=== PATIENT | female | born 1930 | race Caucasian/White ===

== ENCOUNTER 2016-12-28 16:03 | Inpatient (IN) | payer OTHER ==
[~2016-12-28] VITALS: Ht 170.2 cm; Wt 93.8 kg
[~2016-12-28 16:03] MED LIST: ASPEC81 PO; CALCTAB5 PO; ENAL10TA88 PO; FRRS300 PO; MULT-506 BT; NTRGSL/4 UT; SIMV40TA2 PO; SYN112 PO; [UNRECOGNIZED DRUG - CODE] PO; [UNRECOGNIZED DRUG - CODE] PO
[2016-12-28] MEDS ORDERED: ACETAMINOPHEN 500 MG TAB PO STA (16:09)
[2016-12-28] MEDS ORDERED: SODIUM CHLORIDE 0.9% 1000ML 1,000 ML IV STA ×2 (16:09)
--- NOTE | 2016-12-28 16:33 | DIAGNOSTIC IMAGING REPORT ---
CHEST ONE VIEW PORTABLE CLINICAL HISTORY: Weakness COMPARISON STUDY: 11/18/2009 FINDINGS: The heart is at the upper limits of normal in size. There is no overt failure. There is no lobar consolidation. There are no pleural effusions. There are mild chronically increased right basilar markings.[ IMPRESSION: No active disease in the chest. Electronically signed by: Yobany Boyer M.D. 12/28/2016 4:32 PM Dictated Date/Time: 12/28/2016 4:31 PM
[2016-12-28] MEDS ORDERED: FERR325T5 PO (16:44)
[2016-12-28] MEDS ORDERED: LEVO150T PO (16:44)
[2016-12-28] MEDS ORDERED: CALCTAB5 PO (16:44)
[2016-12-28] MEDS ORDERED: GLUC1CAP35 PO (16:44)
[2016-12-28] MEDS ORDERED: COEN1CAP17 PO (16:44)
[2016-12-28] MEDS ORDERED: ASPI81TA21 PO (16:44)
[2016-12-28] MEDS ORDERED: CARV80CA PO (16:44)
[2016-12-28 16:58] LABS: BASO % 1.1 %; BASO ABS # 0.06 K/uL (0-0.2); COMPLETE YES; HEMATOCRIT 41.3 % (37-47); IG% 0.4 %; LYMPH % 5.3 %; LYMPH ABS # 0.29 K/uL (1.2-3.4); MEAN CELL VOLUME 91.2 fL (80-100); MEAN CORPUSCULAR HEMOGLOBIN 30.2 pg (25-34); MEAN CORPUSCULAR HGB CONC 33.2 g/dl (32-36); MEAN PLATELET VOLUME 10.2 fL (7.4-10.4); MONO % 4.9 %; NEUT % 88.3 %; PLATELET COUNT 154 K/uL (130-400); RED BLOOD COUNT 4.53 M/uL (4.2-5.4); WHITE BLOOD COUNT 5.49 K/uL (4.8-10.8)
[2016-12-28 17:12] LABS: INR 1.1 (0.9-1.1); PARTIAL THROMBOPLASTIN RATIO 1.2; PROTHROMBIN TIME (PATIENT) 11.9 SECONDS (9.0-12.0)
[2016-12-28 17:16] LABS: BUN/CREATININE RATIO 18.5 (10-20); CALCIUM 8.6 mg/dl (8.5-10.1); CREATININE 1.1 mg/dl (0.60-1.20); MAGNESIUM 1.8 mg/dl (1.8-2.4); POTASSIUM 3.7 mmol/L (3.5-5.1)
[2016-12-28 17:27] LABS: CKMB/CK RATIO 1.2 (0-3.0); THYROID STIMULATING HORMONE 0.209 uIu/ml (0.300-4.500)
[2016-12-28] MEDS ORDERED: MAGNESIUM SULFATE 1GM / D5W 1 GM in PREMIXED IN D5W 100 ML IV STA (17:52)
[2016-12-28] MEDS ORDERED: METOPROLOL TARTRATE 1 MG/ML VIAL IV STA (17:55)
[2016-12-28 17:56] LABS: URINE APPEARANCE CLEAR (CLEAR); URINE COLOR DK YELLOW; URINE NITRITE NEG (NEG); URINE PH 5.5 (4.5-7.5); URINE SPECIFIC GRAVITY 1.024 (1.000-1.030); UROBILINOGEN NEG (NEG)
[2016-12-28] MEDS ORDERED: MAGNESIUM SULFATE 1GM / D5W 1 GM BAG ONE (17:58)
[2016-12-28 18:00] LABS: MANUAL MICROSCOPIC REQUIRED? NO; REVIEW REQ? NO
[2016-12-28 18:01] LABS: URINE BILIRUBIN NEG (NEG)
[2016-12-28] MEDS ORDERED: POTASSIUM CHLORIDE 10 MEQ TABCR ONE (18:09)
[2016-12-28] MEDS ORDERED: POTASSIUM CHLORIDE 20 MEQ TABCR PO ONE (18:15)
[2016-12-28 18:20] VITALS: O2SAT 93; BMI 32.4
[2016-12-28] MEDS ORDERED: CEFTRIAXONE SOD INJ 1 GM ADDVIAL IV STA (18:31)
[2016-12-28] MEDS ORDERED: SODIUM CHLORIDE 0.9% 500ML 500 ML IV STA (18:32)
[2016-12-28] MEDS ORDERED: NITROGLYCERIN 0.4 MG SL PER TAB CHARGE UT SCH (19:00)
[2016-12-28] MEDS ORDERED: NITROGLYCERIN 0.4 MG SL PER TAB CHARGE SL PRN (19:00)
[2016-12-28] MEDS ORDERED: METOPROLOL TARTRATE 1 MG/ML VIAL IV. PRN (19:15)
[2016-12-28 19:16] VITALS: Ht 170.2 cm; Wt 93.8 kg
[2016-12-28] MEDS ORDERED: HEPARIN IV LOW DOSE NO BOLUS SCH (19:27)
--- NOTE | 2016-12-28 19:48 | EMERGENCY ROOM VISIT NOTE ---
History Report prepared by Elda: Kelin Gibbs Under the Supervision of: Dr. Josep Mehta M.D. First contact with patient: 16:09 Chief Complaint: FEVER Stated Complaint: VOMITING,DIARRHEA,FEVER,HIGH BP History of Present Illness The patient is an 86 year old female who presents to the Emergency Room with complaints of a persistent fever that began today. She currently rates her discomfort as a 5/10 in severity. The patient states that yesterday she was feeling fine, but states that during the night she vomited twice. She states that this morning she developed a fever, hypertension, and tachycardia. The patient denies taking any Tylenol for her symptoms. She states that she previously had urinary tract infections and pneumonia, but denies anything recently. The patient denies any recent sick contacts or recent travel. She additionally reports that last evening she had chest pain and states that this afternoon she felt nauseous. The patient states that last week she had a scratchy throat, but denies any currently. Pt denies LOC, headache, cough chills, diaphoresis, visual changes, neck pain, breathing difficulties, abdominal pain, back pain, melena, hematochezia, urinary symptoms, diarrhea, numbness, weakness, lymphadenopathy, rash, or other complaints. Source of History: patient Onset: today Position: other (global) Symptom Intensity: 5/10 Quality: other (fever) Timing: other (persistent) Associated Symptoms: + chest pain, + nausea, + vomiting Note: Associated Symptoms: hypertension, tachycardia Review of Systems See HPI for pertinent positives and negatives. A total of ten systems were reviewed and were otherwise negative. Past Medical & Surgical Medical Problems: (1) Atrial fibrillation (2) Atrial fibrillation with RVR (3) Hypertension (4) Myocardial infarction (5) UTI (urinary tract infection) Surgical Problems: (1) S/P appendectomy (2) S/P hip replacement (3) S/P knee replacement Family History Noncontributory secondary to age. Social History Smoking Status: Former Smoker Marital Status: Occupation Status: retired Current/Historical Medications Scheduled Aspirin Enteric Coated (Ecotrin Or Generic), 81 MG PO DAILY Calcium Carbonate (Caltrate 600), 1,500 MG PO DAILY Carvedilol Phosphate (Coreg Cr), 80 MG PO QAM Coenzyme Q10 (Ubidecarenone) (Co Q 10), 100 MG PO DAILY Enalapril (Vasotec), 20 MG PO DAILY Ferrous Sulfate (Ferrous Sulfate), 325 MG PO DAILY Uvfbylrdmvz-Loywqbymlng-Iox C- (Glucosamine Chondroitin), 1 CAP PO DAILY Levothyroxine Sodium (Synthroid), 150 MCG PO DAILY Multivitamin (Multivitamin), 1 TAB BT DAILY Nitroglycerin (Nitrostat), 0.4 MG UT PRN Simvastatin (Zocor), 40 MG PO DAILY Allergies Coded Allergies: Shellfish (Verified Allergy, Severe, ANAPHYLAXIS, 12/28/16) Uncoded Allergies: SEA SCALLOPS (Allergy, Unknown, ., 12/28/16) Physical Exam Vital Signs Date Time Temp Pulse Resp B/P (MAP) Pulse Ox O2 Delivery O2 Flow Rate FiO2 12/28/16 19:20 37.3 115 21 109/64 92 Room Air 12/28/16 18:20 93 Room Air 12/28/16 18:06 123 18 92/67 93 Room Air 12/28/16 18:03 125 23 92 12/28/16 18:03 135 108/59 12/28/16 18:02 135 16 108/59 92 Room Air 12/28/16 18:01 108/59 12/28/16 17:59 115 18 108/59 93 Room Air 12/28/16 17:59 105/59 12/28/16 17:58 109 22 12/28/16 17:56 135 16 12/28/16 17:53 108 28 12/28/16 17:48 108 15 12/28/16 17:43 129 28 12/28/16 17:38 108 30 12/28/16 17:33 113 22 12/28/16 17:28 123 32 12/28/16 17:23 127 25 12/28/16 17:18 116 37 12/28/16 17:16 115 12/28/16 17:13 136 37 12/28/16 17:08 125 33 12/28/16 17:03 142 34 12/28/16 16:58 119 29 12/28/16 16:57 130 12/28/16 16:20 94 Room Air 12/28/16 16:06 39.1 126 20 120/60 92 Room Air Physical Exam GENERAL: Awake, alert, mildly uncomfortable-appearing, in no distress HENT: Normocephalic, atraumatic. Dry mucous membranes. EYES: Normal conjunctiva. Sclera non-icteric. NECK: Supple. No nuchal rigidity. FROM. No JVD. RESPIRATORY: Clear to auscultation. CARDIAC: Tachycardic rate, normal rhythm. Extremities warm and well perfused. Pulses equal. ABDOMEN: Soft, non-distended. No tenderness to palpation. No rebound or guarding. No masses. RECTAL: Deferred. MUSCULOSKELETAL: Chest examination reveals no tenderness. The back is symmetrical on inspection without obvious abnormality. There is no CVA tenderness to palpation. No joint edema. LOWER EXTREMITIES: Calves are equal size bilaterally and non-tender. No edema. No discoloration. NEURO: Normal sensorium. No sensory or motor deficits noted. SKIN: No rash or jaundice noted. Medical Decision & Procedures ER Provider Diagnostic Interpretation: X-ray: Per my interpretation, radiologist review. CHEST ONE VIEW PORTABLE CLINICAL HISTORY: Weakness COMPARISON STUDY: 11/18/2009 FINDINGS: The heart is at the upper limits of normal in size. There is no overt failure. There is no lobar consolidation. There are no pleural effusions. There are mild chronically increased right basilar markings.[ IMPRESSION: No active disease in the chest. Electronically signed by: Yobany Boyer M.D. 12/28/2016 4:32 PM Dictated Date/Time: 12/28/2016 4:31 PM Laboratory Results 12/28/16 16:31 Red Blood Count 4.53, Mean Corpuscular Volume 91.2, Mean Corpuscular Hemoglobin 30.2, Mean Corpuscular Hemoglobin Concent 33.2, Mean Platelet Volume 10.2, Neutrophils (%) (Auto) 88.3, Lymphocytes (%) (Auto) 5.3, Monocytes (%) (Auto) 4.9, Eosinophils (%) (Auto) 0.0, Basophils (%) (Auto) 1.1, Neutrophils # (Auto) 4.85, Lymphocytes # (Auto) 0.29, Monocytes # (Auto) 0.27, Eosinophils # (Auto) 0.00, Basophils # (Auto) 0.06 12/28/16 16:31 Test 12/28/16 16:31 12/28/16 16:39 12/28/16 17:40 White Blood Count 5.49 K/uL (4.8-10.8) Red Blood Count 4.53 M/uL (4.2-5.4) Hemoglobin 13.7 g/dL (12.0-16.0) Hematocrit 41.3 % (37-47) Mean Corpuscular Volume 91.2 fL (80-100) Mean Corpuscular Hemoglobin 30.2 pg (25-34) Mean Corpuscular Hemoglobin Concent 33.2 g/dl (32-36) Platelet Count 154 K/uL (130-400) Mean Platelet Volume 10.2 fL (7.4-10.4) Neutrophils (%) (Auto) 88.3 % Lymphocytes (%) (Auto) 5.3 % Monocytes (%) (Auto) 4.9 % Eosinophils (%) (Auto) 0.0 % Basophils (%) (Auto) 1.1 % Neutrophils # (Auto) 4.85 K/uL (1.4-6.5) Lymphocytes # (Auto) 0.29 K/uL (1.2-3.4) Monocytes # (Auto) 0.27 K/uL (0.11-0.59) Eosinophils # (Auto) 0.00 K/uL (0-0.5) Basophils # (Auto) 0.06 K/uL (0-0.2) RDW Standard Deviation 48.0 fL (36.4-46.3) RDW Coefficient of Variation 14.3 % (11.5-14.5) Immature Granulocyte % (Auto) 0.4 % Immature Granulocyte # (Auto) 0.02 K/uL (0.00-0.02) Prothrombin Time 11.9 SECONDS (9.0-12.0) Prothromb Time International Ratio 1.1 (0.9-1.1) Activated Partial Thromboplast Time 30.3 SECONDS (21.0-31.0) Partial Thromboplastin Ratio 1.2 Anion Gap 7.0 mmol/L (3-11) Est Creatinine Clear Calc Drug Dose 43.2 ml/min Estimated GFR () 52.6 Estimated GFR (Non- 45.4 BUN/Creatinine Ratio 18.5 (10-20) Calcium Level 8.6 mg/dl (8.5-10.1) Magnesium Level 1.8 mg/dl (1.8-2.4) Total Bilirubin 0.8 mg/dl (0.2-1) Direct Bilirubin 0.2 mg/dl (0-0.2) Aspartate Amino Transf (AST/SGOT) 23 U/L (15-37) Alanine Aminotransferase (ALT/SGPT) 21 U/L (12-78) Alkaline Phosphatase 71 U/L (45-117) Total Creatine Kinase 86 U/L (26-192) Creatine Kinase MB 1.0 ng/ml (0.5-3.6) Creatine Kinase MB Ratio 1.2 (0-3.0) Troponin I 0.243 ng/ml (0-0.045) Total Protein 7.3 gm/dl (6.4-8.2) Albumin 3.5 gm/dl (3.4-5.0) Lipase 72 U/L (73-393) Thyroid Stimulating Hormone (TSH) 0.209 uIu/ml (0.300-4.500) Bedside Lactic Acid Venous 0.83 mmol/L (0.90-1.70) Urine Color DK YELLOW Urine Appearance CLEAR (CLEAR) Urine pH 5.5 (4.5-7.5) Urine Specific [place] 1.024 (1.000-1.030) Urine Protein 3+ (NEG) Urine Glucose (UA) NEG (NEG) Urine Ketones 1+ (NEG) Urine Occult Blood 3+ (NEG) Urine Nitrite NEG (NEG) Urine Bilirubin NEG (NEG) Urine Urobilinogen NEG (NEG) Urine Leukocyte Esterase TRACE (NEG) Urine WBC (Auto) 1-5 /hpf (0-5) Urine RBC (Auto) 10-30 /hpf (0-4) Urine Hyaline Casts (Auto) 5-10 /lpf (0-5) Urine Epithelial Cells (Auto) 10-20 /lpf (0-5) Urine Bacteria (Auto) NEG (NEG) Laboratory results reviewed by me Medications Administered Medications (Trade) Dose Ordered Sig/Durga Route Start Time Stop Time Status Last Admin Dose Admin Sodium Chloride 1,000 ml @ 999 mls/hr Q1H1M STAT IV 12/28/16 16:09 12/28/16 17:09 DC 12/28/16 16:48 999 MLS/HR Sodium Chloride 1,000 ml @ 125 mls/hr Q8H STAT IV 12/28/16 16:09 12/29/16 00:08 12/28/16 16:48 125 MLS/HR Acetaminophen (Tylenol Tab) 1,000 mg NOW STAT PO 12/28/16 16:09 12/28/16 16:11 DC 12/28/16 16:49 1,000 MG Potassium Chloride (Klor-Con Tab) 40 meq 1815 ONCE PO 12/28/16 18:15 12/28/16 18:16 DC 12/28/16 18:10 40 MEQ Metoprolol Tartrate (Lopressor Iv) 5 mg NOW STAT IV 12/28/16 17:55 12/28/16 17:56 DC 12/28/16 18:03 5 MG Magnesium Sulfate (Magnesium Sulfate) 1 gm STK-MED ONCE .ROUTE 12/28/16 17:58 12/28/16 17:59 DC 12/28/16 18:04 1 GM Ceftriaxone Sodium (Rocephin Inj) 1 gm NOW STAT IV 12/28/16 18:31 12/28/16 18:32 DC 12/28/16 19:18 1 GM Sodium Chloride 500 ml @ 999 mls/hr Q31M STAT IV 12/28/16 18:32 12/28/16 19:02 DC 12/28/16 19:19 999 MLS/HR ECG Indication: tachycardia Rate (beats per minute): 120 Rhythm: atrial fibrillation (with RVR) Findings: nonspecific-ST abn, PVC, ST depression (Lateral), other (LVH) Change: Repeat EKG showed atrial fibrillation with RVR, 121 beats per minute. Inferolateral ST depressions, slightly more prominent than others. ED Course 1609: Ordered Tylenol Tab 1000 mg PO, Sodium Chloride 1000 ml @ 125 mls/hr IV, Sodium Chloride 1000 ml @ 999 mls/hr IV. 1613: The patient was evaluated in room A3. A complete history and physical exam was performed. 1726: Per the monitor accounts clerk, the patient had a significant 3 second sinus pause. 1731: I reevaluated the patient and she is currently giving a cath urine. I discussed the exam findings thus far with her and her daughter and I discussed the treatment plan. They verbalized complete understanding and agreement. The patient will be evaluated for further treatment. 1752: Magnesium Sulfate 1 gm/Prmx 100 ml @ 100 mls/hr IV. 1755: Ordered Lopressor IV 5 mg IV. 1758: Ordered magnesium Sulfate 1 gm .route. 1830: I discussed the patients case with KEYA Akers. He is going to evaluate the patient for further treatment. 183: Ordered Rocephin Inj 1 gm IV, Sodium Chloride 500 ml @ 999 mls/hr IV. Medical Decision Triage Nursing notes reviewed. The patient's presentation and history were concerning for fever and vomiting. Etiologies such as viral syndrome, urinary tract infection, sepsis, pneumonia, bacteremia, cardiac sources, as well as others were entertained. The patient was evaluated. She was tachycardic and febrile. She was given Tylenol. Fluids were ordered. The patient had a chest x-ray performed which was negative. Blood work revealed a unremarkable CBC. The patient had a normal lactate. Her chemistry panel showed some mild dehydration. Potassium and magnesium were within normal limits. The patient had rapid A. fib noted on the ECG. She did have some ST segment depression. Troponin did return mildly elevated. The patient's urinalysis was concerning for infection. She was given Lopressor and IV Rocephin. Consultation was with internal medicine,Dr. Gutierrez Kimball. He evaluated the patient in the Emergency Room. He did order additional oral potassium and IV magnesium. The patient and daughter were updated. She was admitted for further treatment. Medication Reconcilliation Current Medication List: was personally reviewed by me Blood Pressure Screening Patient's blood pressure: Normal blood pressure Blood pressure disposition: Did not require urgent referral Consults Time Called: [phone] Consulting Physician: KEYA Akers Returned Call: [phone] I discussed the patients case with KEYA Akers. He is going to evaluate the patient for further treatment. Impression Primary Impression: Fever Additional Impressions: Elevated troponin UTI (urinary tract infection) Rapid atrial fibrillation Critical Care I have personally spent greater than 30 minutes of critical care time in the direct management of this patient. This includes bedside care, interpretation of diagnostic studies, and testing, discussion with consultants, patient, and family members, and other required patient management activities. This 30 minutes is in excess of all separately billable procedures. Scribe Attestation The scribe's documentation has been prepared under my direction and personally reviewed by me in its entirety. I confirm that the note above accurately reflects all work, treatment, procedures, and medical decision making performed by me. Departure Information Dispostion Being Evaluated By Hospitalist Luana Grider M.D. (PCP) Problem Qualifiers
--- NOTE | 2016-12-28 19:50 | History and Physical ---
History & Physical Date & Time of Service: Dec 28, 2016 at 19:37 Chief Complaint: Vomiting,Diarrhea,Fever,High Bp Primary Care Physician: Luana Acevedo M.D. History of Present Illness Source: patient, family The patient is a 86-year-old female who awoke approximately 1:00 this morning with chest discomfort, palpitations and nausea without vomiting. Her symptoms were also accompanied by shortness of breath as the day progressed. She reports having had a tickling sensation in her throat a few weeks ago which was unusual for her, but the symptoms went away without incident. She denies any lightheadedness, dizziness, loss of consciousness, focal weakness in arms or legs, numbness or tingling in arms or legs, blood in urine or stool, change in bowel or bladder habits. Past Medical/Surgical History Medical Problems: (1) Atrial fibrillation Status: Chronic (2) Hypertension Status: Chronic (3) Myocardial infarction Status: Resolved Surgical Problems: (1) S/P appendectomy Status: Resolved (2) S/P hip replacement Status: Resolved (3) S/P knee replacement Status: Resolved Family History Noncontributory Social History Smoking Status: Former Smoker Smokeless Tobacco Use: No Alcohol Use: none Drug Use: none Marital Status: Housing status: lives alone Occupational Status: retired Immunizations History of Influenza Vaccine: N/A Influenza Vaccine Date: Mar 26, 2009 History of Tetanus Vaccine?: NOT UP TO DATE. [birth year] Tetanus Immunization Date: May 26, 1986 History of Pneumococcal: Yes Pneumococcal Date: Mar 26, 2009 History of Hepatitis B Vaccine: No Multi-Drug Resistant Organisms History of MDRO: No Allergies Coded Allergies: Shellfish (Verified Allergy, Severe, ANAPHYLAXIS, 12/28/16) Uncoded Allergies: SEA SCALLOPS (Allergy, Unknown, ., 12/28/16) Home Medications Scheduled Aspirin Enteric Coated (Ecotrin Or Generic), 81 MG PO DAILY Calcium Carbonate (Caltrate 600), 1,500 MG PO DAILY Carvedilol Phosphate (Coreg Cr), 80 MG PO QAM Coenzyme Q10 (Ubidecarenone) (Co Q 10), 100 MG PO DAILY Enalapril (Vasotec), 20 MG PO DAILY Ferrous Sulfate (Ferrous Sulfate), 325 MG PO DAILY Cmzjzixputa-Kqsemcjimft-Zdu C- (Glucosamine Chondroitin), 1 CAP PO DAILY Levothyroxine Sodium (Synthroid), 150 MCG PO DAILY Multivitamin (Multivitamin), 1 TAB BT DAILY Nitroglycerin (Nitrostat), 0.4 MG UT PRN Simvastatin (Zocor), 40 MG PO DAILY Review of Systems The patient denies lower extremity swelling, vision change, hearing change, sore throat, fevers, chills, sweats, weight change, fatigue, vomiting, abdominal pain, pelvic pain, blood in urine or stool, dysuria, urinary frequency or urgency, lightheadedness, dizziness, headache, memory loss, rash, abnormal bruising or bleeding, imbalance, focal or generalized weakness, numbness or tingling in arms or legs, arthralgias or myalgias, back or neck pain , night sweats, or allergy symptoms. The review of systems is otherwise negative other than for that already noted above, and at least 10 systems have been reviewed. Physical Exam Vital Signs Date Time Temp Pulse Resp B/P (MAP) Pulse Ox O2 Delivery O2 Flow Rate FiO2 12/28/16 19:20 37.3 115 21 109/64 92 Room Air 12/28/16 18:20 93 Room Air 12/28/16 18:06 123 18 92/67 93 Room Air 12/28/16 18:03 125 23 92 12/28/16 18:03 135 108/59 12/28/16 18:02 135 16 108/59 92 Room Air 12/28/16 18:01 108/59 12/28/16 17:59 115 18 108/59 93 Room Air 12/28/16 17:59 105/59 12/28/16 17:58 109 22 12/28/16 17:56 135 16 12/28/16 17:53 108 28 12/28/16 17:48 108 15 12/28/16 17:43 129 28 12/28/16 17:38 108 30 12/28/16 17:33 113 22 12/28/16 17:28 123 32 12/28/16 17:23 127 25 12/28/16 17:18 116 37 12/28/16 17:16 115 12/28/16 17:13 136 37 12/28/16 17:08 125 33 12/28/16 17:03 142 34 12/28/16 16:58 119 29 12/28/16 16:57 130 12/28/16 16:20 94 Room Air 12/28/16 16:06 39.1 126 20 120/60 92 Room Air The patient is awake, well-developed and adequately nourished, alert and oriented 3, normocephalic and atraumatic, lying in bed and in no acute distress. HEENT--PERRL, EOMI, mucous membranes and oropharynx dry. Neck--supple, no JVD or bruits, thyroid normal, trachea midline, no adenopathy. Heart--irregularly irregular and tachycardic, no murmurs, rubs or gallops. Lungs--clear bilaterally but diminished throughout, no respiratory distress, no accessory muscle use. Abdomen--normal bowel sounds and soft, nontender and nondistended, no hernias or masses, no organomegaly. Extremities--no cyanosis, clubbing or edema. There are good distal pulses b/l. Dermatologic--normal skin turgor, normal color, warm and dry, no abnormal lymph nodes, no rash. Neurologic--cranial nerves II through XII grossly intact. Rheumatologic--normal range of motion. Psychiatric--normal affect. Diagnostics Laboratory Results Results Past 24 Hours Test 12/28/16 16:31 12/28/16 16:39 12/28/16 17:40 Range/Units White Blood Count 5.49 4.8-10.8 K/uL Red Blood Count 4.53 4.2-5.4 M/uL Hemoglobin 13.7 12.0-16.0 g/dL Hematocrit 41.3 37-47 % Mean Corpuscular Volume 91.2 80-100 fL Mean Corpuscular Hemoglobin 30.2 25-34 pg Mean Corpuscular Hemoglobin Concent 33.2 32-36 g/dl Platelet Count 154 130-400 K/uL Mean Platelet Volume 10.2 7.4-10.4 fL Neutrophils (%) (Auto) 88.3 % Lymphocytes (%) (Auto) 5.3 % Monocytes (%) (Auto) 4.9 % Eosinophils (%) (Auto) 0.0 % Basophils (%) (Auto) 1.1 % Neutrophils # (Auto) 4.85 1.4-6.5 K/uL Lymphocytes # (Auto) 0.29 1.2-3.4 K/uL Monocytes # (Auto) 0.27 0.11-0.59 K/uL Eosinophils # (Auto) 0.00 0-0.5 K/uL Basophils # (Auto) 0.06 0-0.2 K/uL RDW Standard Deviation 48.0 36.4-46.3 fL RDW Coefficient of Variation 14.3 11.5-14.5 % Immature Granulocyte % (Auto) 0.4 % Immature Granulocyte # (Auto) 0.02 0.00-0.02 K/uL Prothrombin Time 11.9 9.0-12.0 SECONDS Prothromb Time International Ratio 1.1 0.9-1.1 Activated Partial Thromboplast Time 30.3 21.0-31.0 SECONDS Partial Thromboplastin Ratio 1.2 Sodium Level 137 136-145 mmol/L Potassium Level 3.7 3.5-5.1 mmol/L Chloride Level 103 98-107 mmol/L Carbon Dioxide Level 27 21-32 mmol/L Anion Gap 7.0 3-11 mmol/L Blood Urea Nitrogen 20 7-18 mg/dl Creatinine 1.10 0.60-1.20 mg/dl Est Creatinine Clear Calc Drug Dose 43.2 ml/min Estimated GFR () 52.6 Estimated GFR (Non- 45.4 BUN/Creatinine Ratio 18.5 10-20 Random Glucose 115 70-99 mg/dl Calcium Level 8.6 8.5-10.1 mg/dl Magnesium Level 1.8 1.8-2.4 mg/dl Total Bilirubin 0.8 0.2-1 mg/dl Direct Bilirubin 0.2 0-0.2 mg/dl Aspartate Amino Transf (AST/SGOT) 23 15-37 U/L Alanine Aminotransferase (ALT/SGPT) 21 12-78 U/L Alkaline Phosphatase 71 45-117 U/L Total Creatine Kinase 86 26-192 U/L Creatine Kinase MB 1.0 0.5-3.6 ng/ml Creatine Kinase MB Ratio 1.2 0-3.0 Troponin I 0.243 0-0.045 ng/ml Total Protein 7.3 6.4-8.2 gm/dl Albumin 3.5 3.4-5.0 gm/dl Lipase 72 73-393 U/L Thyroid Stimulating Hormone (TSH) 0.209 0.300-4.500 uIu/ml Bedside Lactic Acid Venous 0.83 0.90-1.70 mmol/L Urine Color DK YELLOW Urine Appearance CLEAR CLEAR Urine pH 5.5 4.5-7.5 Urine Specific [place] 1.024 1.000-1.030 Urine Protein 3+ NEG Urine Glucose (UA) NEG NEG Urine Ketones 1+ NEG Urine Occult Blood 3+ NEG Urine Nitrite NEG NEG Urine Bilirubin NEG NEG Urine Urobilinogen NEG NEG Urine Leukocyte Esterase TRACE NEG Urine WBC (Auto) 1-5 0-5 /hpf Urine RBC (Auto) 10-30 0-4 /hpf Urine Hyaline Casts (Auto) 5-10 0-5 /lpf Urine Epithelial Cells (Auto) 10-20 0-5 /lpf Urine Bacteria (Auto) NEG NEG Microbiology Results 12/28/16 Blood Culture, Received Pending 12/28/16 Blood Culture, Received Pending 12/28/16 Urine Culture, Received Pending Diagnostic Radiology Patient Name: LILLIAM ACE Unit Number: [id number] Dictated: 12/28/161630 Transcribed: 12/28/161630 ARG Printed Date/Time: [~ rep prt dt]/[~ rep prt tm] [~ rep ct labl] - [~ rep ct ivnm] [facility] [place] [address] Dictated: 12/28/161630 Transcribed: 12/28/161630 ARG Printed Date/Time: [~ rep prt dt]/[~ rep prt tm] [~ rep ct labl] - [~ rep ct ivnm] [~ rep ct add3]] CHEST ONE VIEW PORTABLE CLINICAL HISTORY: Weakness COMPARISON STUDY: 11/18/2009 FINDINGS: The heart is at the upper limits of normal in size. There is no overt failure. There is no lobar consolidation. There are no pleural effusions. There are mild chronically increased right basilar markings.[ IMPRESSION: No active disease in the chest. Electronically signed by: Yobany Boyer M.D. 12/28/2016 4:32 PM Dictated Date/Time: 12/28/2016 4:31 PM The status of this report is Signed. Draft = Not yet reviewed or approved by Radiologist. Signed = Reviewed and approved by Radiologist. <AttendingPhy></AttendingPhy> <FamilyPhy>Kartik Castorena M.D.</FamilyPhy> < PrimaryPhy>Luana Acevedo M.D.</PrimaryPhy> <UnitNumber>[id number]</UnitNumber > <VisitNumber>[id number]</VisitNumber> <PatientName>LILLIAM ACE</ PatientName> <DateOfBirth>1930</DateOfBirth> <Location>[facility]</Location> < ServiceDate>12/28/16</ServiceDate> <MNE>ESINDI</MNE> <OrderingPhy>Josep Mehta MD</OrderingPhy> <OrderingPhyMNE>f rep ord dr mercer</OrderingPhyMNE> < DictatingPhyMNE>f rep dict dr mercer</DictatingPhyMNE> <CCListMNE>f rep ct chentee</ CCListMNE> <AdmittingPhyMNE>f pt admit dr mercer</AdmittingPhyMNE> <AttendingPhyMNE >f pt attend dr mercer</AttendingPhyMNE> <ConsultingPhyMNE>f pt consult dr mercer</ConsultingPhyMNE> <FamilyPhyMNE>f pt fam dr mercer</FamilyPhyMNE> <OtherPhyMNE>f pt other dr mercer</OtherPhyMNE> < PrimaryPhyMNE>f pt prim care dr mercer</PrimaryPhyMNE> <ReferringPhyMNE>f pt referring dr mercer</ReferringPhyMNE> EKG EKG shows atrial fibrillation with RVR at 120 bpm, PVCs, nonspecific lateral ST changes Impression Assessment and Plan New onset atrial fibrillation with RVR--The patient will be admitted to telemetry for serial cardiac enzymes, cardiac rhythm monitoring and a 2-D echocardiogram with Dopplers. Start on heparin drip IV low-dose no bolus per protocol. Give 1 g of magnesium sulfate IV and potassium chloride 40 mEq by mouth. Follow serial CBC with differential, PRP and magnesium levels. We'll continue to rehydrate with normal saline with KCl 20 mEq on at 150 ML's per hour. Continue aspirin 81 mg by mouth daily, enalapril 20 mg by mouth daily. Nitroglycerin sublingual's when necessary. Change carvedilol CR 80 mg every morning to 25 mg by mouth twice a day starting tomorrow morning. Lopressor 2.5 mg IV every 4 hours when necessary systolic blood pressure greater than 110. Digoxin 0.25 mg IV may be indicated if blood pressure is exceedingly low and heart rate is still in the 110 or above area. We will hold levothyroxine sodium for a few days, as patient is relatively hyperthyroid due to overcorrection. We'll consult her pump installer Dr. Castorena. Hypothyroidism--TSH is 0.2. We will hold levothyroxine 150 g dosing for now as noted above. Hyperlipidemia--continue simvastatin 40 mg by mouth daily. Level of Care Telemetry Advanced Directives Existing Advance Directive: No Existing Living Will: Yes Existing Power of Tool And Die Manager: Yes Resuscitation Status FULL RESUSCITATION VTE Prophylaxis VTE Risk Assessment Done? Y/N: Yes Risk Level: Moderate Given or contraindicated: Other Anticoagulation (heparin IV low-dose no bolus per protocol)
[2016-12-28] MEDS ORDERED: HEPARIN 25000 UNIT/500 ML D5W ONE (20:06)
[2016-12-28] MEDS ORDERED: CARVEDILOL 25 MG TAB PO SCH ×2 (21:00)
[2016-12-28] MEDS ORDERED: HEPARIN 25,000 UNIT/500ML D5W 500 ML IV PRN (21:15)
[2016-12-28 22:37] VITALS: PULSE 115; TEMP 39.3
[2016-12-28] MEDS: METOPROLOL TARTRATE 1 MG/ML VIAL IV PRN (22:40)
[2016-12-28] MEDS: NSS + 20MEQ KCL 1000ML 1,000 ML IV SCH (22:41)
[2016-12-28] MEDS: ACETAMINOPHEN 325 MG TAB PO PRN (23:18)
[2016-12-28 23:59] VITALS: O2SAT 98
[2016-12-29] VITALS (17 sets, daily range): BP systolic 118–165; BP diastolic 69–118; PULSE 76–127; TEMP 36.8–39.4; O2SAT 93–99
[2016-12-29 03:49] LABS: PARTIAL THROMBOPLASTIN RATIO 1.7
[2016-12-29 03:59] LABS: CKMB/CK RATIO 1.3 (0-3.0)
[2016-12-29] MEDS ORDERED: HEPARIN IV BOLUS 3,000 UNIT in SYRINGE 0 ML IV ONE (04:30)
[2016-12-29] MEDS: ASPIRIN 81 MG ECTAB PO SCH (09:17)
[2016-12-29] MEDS: NSS + 20MEQ KCL 1000ML 1,000 ML IV SCH (09:17)
[2016-12-29] MEDS: ENALAPRIL MALEATE 10 MG TAB PO SCH (09:18)
[2016-12-29] MEDS: FERROUS SULFATE 325 MG TAB PO SCH (09:18)
[2016-12-29] MEDS: MULTIVITAMIN TAB PO SCH (09:19)
[2016-12-29] MEDS: SIMVASTATIN 40 MG TAB PO SCH (09:19)
--- NOTE | 2016-12-29 10:25 | DIAGNOSTIC IMAGING REPORT ---
ABDOMEN AND PELVIS CT WITHOUT CONTRAST CT DOSE: 962.44 mGy.cm HISTORY: hematuria, fever, TECHNIQUE: Multiaxial CT images of the abdomen and pelvis were performed without contrast. A dose lowering technique was utilized adhering to the principles of ALARA. COMPARISON STUDY: Pelvis CT 10/05/2009. FINDINGS: Mild interstitial thickening at the lung bases. No pneumoperitoneum. No pneumatosis. A right total hip arthroplasty. Degenerative changes within the lumbar spine. Old mild compression deformities at L1 and L3. Mild body wall edema. Short segment of small bowel within the small left inguinal hernia. Small fat-containing right inguinal hernia. Bladder is not well assessed due to the metallic artifact from the right hip prosthesis but appears to be within normal limits. The uterus and bilateral adnexa are unremarkable. Small hiatal hernia. Cholelithiasis. No gallbladder wall thickening. The unenhanced liver, spleen, adrenal glands, and pancreas are unremarkable. Focal cortical calcification within the upper pole the left kidney. Multiple bilateral peripelvic renal cysts are again noted. A 1.2 cm exophytic hypodense lesion within the upper pole the left kidney. This is incompletely characterize on this noncontrast study. Mild right perinephric fat stranding. No definite hydronephrosis. No renal or ureteral calculi identified. Extensive calcified plaque within the normal caliber abdominal aorta and iliac arteries. Suboptimal evaluation for bowel pathology due to the lack of intravenous and oral contrast. However, there is no definite bowel wall thickening or obstruction. Extensive colonic diverticulosis. Mild motion artifact within the abdomen. IMPRESSION: 1. Mild right perinephric fat stranding. The could be chronic or due to an infectious process such as pyelonephritis. Recommend correlation with urinalysis. 2. Bilateral peripelvic renal cysts. No renal stones or hydronephrosis. 3. Cholelithiasis. 4. Small left inguinal hernia containing a short segment of small bowel. No evidence for bowel obstruction at this time. 5. Colonic diverticulosis. Electronically signed by: Shailesh Webster M.D. 12/29/2016 10:24 AM Dictated Date/Time: 12/29/2016 10:15 AM
--- NOTE | 2016-12-29 11:17 | Cardiology Consultation ---
Cardiology Consultation Date of Consultation: Dec 29, 2016. Requesting Physician: Dr. Kimball Reason for Consultation: Atrial fibrillation, elevated cardiac enzymes Pt evaluation today including: conversation w/ patient, physical exam, lab review, review of studies, review of inpatient medication list History of Present Illness This is an 86-year-old woman with a history of paroxysmal atrial fibrillation and known coronary artery disease with stable angina in the past. She also has hypertension, hyperlipidemia and hypothyroidism. She has long-standing coronary artery disease with her most recent catheterization 02/27/2011 showing triple-vessel coronary disease felt best treated with medical therapy. She has been treated with Ranexa for control of her angina. She has not had a lot of difficulty with atrial fibrillation recently (based on her symptoms) but may have asymptomatic episodes. She feels that she can tell when she is in atrial fibrillation, and evidently had some problems with bleeding therefore she is not on an anticoagulant as an outpatient but had been on warfarin. She remains in atrial fibrillation and is unaware of it, suggesting that she may not always be aware of her arrhythmia. She feels that her atrial fibrillation was caused by hypothyroidism. She presented to the emergency room on 12/28/2016 with symptoms of fever, vomiting the night before and symptoms of tachycardia and chest discomfort. In the emergency room she was observed to be febrile, in atrial fibrillation with a rapid ventricular response of 121 bpm as well as being borderline hypotensive with a blood pressure as low as 92/67. She was given intravenous fluids as well as intravenous metoprolol for heart rate control and antibiotics. She was started on heparin as an anticoagulant for her atrial fibrillation. Her troponin was slightly elevated, up to 0.369 on the second set of enzymes. On discussing symptoms with her she describes waking up early in the morning feeling poorly as described. She was aware of a fast heart rate, however currently he is not aware of it even though she remains in atrial fibrillation. The chest discomfort was not severe and has resolved. Currently she feels much better. Past Medical/Surgical History (1) Hypertension (2) Atrial fibrillation (3) S/P appendectomy (4) S/P hip replacement (5) S/P knee replacement Social History Smoking Status: Former Smoker History of Alcohol Use: Yes (VERY RARELY - SPECIAL OCCASSIONS, 2 times a year) Review of Systems Constitutional: + fever, No weight loss, No weakness Respiratory: No cough, No wheezing, No shortness of breath, No dyspnea on exertion Cardiac: + see HPI, + chest pain, + palpitations, No orthopnea, No PND, No edema Abdomen: + nausea, + vomiting, No pain, No diarrhea, No GI bleeding Female : No problem reported Neurologic: No paralysis, No weakness, No numbness/tingling, No balance problems Heme: No abnormal bleeding/bruising, No clotting problems Endo: No fatigue Skin: No problem reported All Other Systems: Reviewed and Negative Allergies Coded Allergies: Shellfish (Verified Allergy, Severe, ANAPHYLAXIS, 12/28/16) Uncoded Allergies: SEA SCALLOPS (Allergy, Unknown, ., 12/28/16) Medications Current Inpatient Medications Medications (Trade) Dose Ordered Sig/Durga Route Start Time Stop Time Status Last Admin Dose Admin Potassium Chloride/Sodium Chloride 1,000 ml @ 125 mls/hr Q8H IV 12/28/16 21:45 01/27/17 21:44 12/29/16 09:17 125 MLS/HR Acetaminophen (Tylenol Tab) 650 mg Q4H PRN PO 12/28/16 19:00 01/27/17 18:59 12/28/16 23:18 650 MG Nitroglycerin (Nitrostat Tab) 0.4 mg UD PRN SL 12/28/16 19:00 01/27/17 18:59 Aspirin (Ecotrin Tab) 81 mg DAILY PO 12/29/16 09:00 01/28/17 08:59 12/29/16 09:17 81 MG Enalapril Maleate (Vasotec Tab) 20 mg DAILY PO 12/29/16 09:00 01/28/17 08:59 12/29/16 09:18 20 MG Ferrous Sulfate (Feosol Tab) 325 mg DAILY PO 12/29/16 09:00 01/28/17 08:59 12/29/16 09:18 325 MG Multivitamins (Multivitamin Tab) 1 tab DAILY PO 12/29/16 09:00 01/28/17 08:59 12/29/16 09:19 1 TAB Simvastatin (Zocor Tab) 40 mg DAILY PO 12/29/16 09:00 01/28/17 08:59 12/29/16 09:19 40 MG Ceftriaxone Sodium 1 gm/ Dextrose 50 ml @ 100 mls/hr Q24H IV 12/29/16 19:00 01/08/17 18:59 Heparin Sodium/ Dextrose 500 ml @ 19 mls/hr Q24H PRN IV 12/28/16 21:15 01/27/17 21:14 Metoprolol Tartrate (Lopressor Iv) 2.5 mg Q4H PRN IV 12/28/16 21:30 01/27/17 21:29 12/28/16 22:40 2.5 MG Physical Exam Vital Signs Past 12 Hours Date Time Temp Pulse Resp B/P (MAP) Pulse Ox O2 Delivery O2 Flow Rate FiO2 12/29/16 08:16 37.0 76 22 125/69 (87) 93 12/29/16 04:00 97 Nasal Cannula 1.0 12/29/16 03:52 36.8 78 22 125/71 (89) 98 Nasal Cannula 2.0 12/29/16 01:30 37.1 12/29/16 00:04 39.4 105 22 130/80 (97) 98 Nasal Cannula 2.0 12/28/16 23:59 98 Nasal Cannula 1.0 Constitutional: General Apperance: heathly-appearing Level of Distress: NAD Psychiatric: Mental Status: active & alert Head: normocephalic Eyes: EOM: EOMI ENMT: normal ENT inspection, hearing grossly normal Neck: supple, no masses Lungs: Respiratory effort: no dyspnea, good air movement Auscultation: breath sounds normal, no wheezing Cardiovascular: Heart Auscultation: no murmurs, no rubs, no gallops, tachycardia, irregular rate rhythm Peripheral Pulses: Bruits: none appreciated Abdomen: Bowel Sounds: normal Inspection & Palpation: soft, no tenderness, guarding & rebound, no masses Musculoskeletal: normal strength (5/5 throughout) Extremities: no edema Neurologic: Cranial Nerves: grossly intact Sensation: grossly intact Data Laboratory Results: Last 24 Hours Test 12/28/16 16:31 12/28/16 16:39 12/28/16 17:40 12/29/16 03:02 White Blood Count 5.49 K/uL Red Blood Count 4.53 M/uL Hemoglobin 13.7 g/dL Hematocrit 41.3 % Mean Corpuscular Volume 91.2 fL Mean Corpuscular Hemoglobin 30.2 pg Mean Corpuscular Hemoglobin Concent 33.2 g/dl Platelet Count 154 K/uL Mean Platelet Volume 10.2 fL Neutrophils (%) (Auto) 88.3 % Lymphocytes (%) (Auto) 5.3 % Monocytes (%) (Auto) 4.9 % Eosinophils (%) (Auto) 0.0 % Basophils (%) (Auto) 1.1 % Neutrophils # (Auto) 4.85 K/uL Lymphocytes # (Auto) 0.29 K/uL Monocytes # (Auto) 0.27 K/uL Eosinophils # (Auto) 0.00 K/uL Basophils # (Auto) 0.06 K/uL RDW Standard Deviation 48.0 fL RDW Coefficient of Variation 14.3 % Immature Granulocyte % (Auto) 0.4 % Immature Granulocyte # (Auto) 0.02 K/uL Prothrombin Time 11.9 SECONDS Prothromb Time International Ratio 1.1 Activated Partial Thromboplast Time 30.3 SECONDS 43.2 SECONDS Partial Thromboplastin Ratio 1.2 1.7 Sodium Level 137 mmol/L Potassium Level 3.7 mmol/L Chloride Level 103 mmol/L Carbon Dioxide Level 27 mmol/L Anion Gap 7.0 mmol/L Blood Urea Nitrogen 20 mg/dl Creatinine 1.10 mg/dl Est Creatinine Clear Calc Drug Dose 43.2 ml/min Estimated GFR () 52.6 Estimated GFR (Non- 45.4 BUN/Creatinine Ratio 18.5 Random Glucose 115 mg/dl Calcium Level 8.6 mg/dl Magnesium Level 1.8 mg/dl Total Bilirubin 0.8 mg/dl Direct Bilirubin 0.2 mg/dl Aspartate Amino Transf (AST/SGOT) 23 U/L Alanine Aminotransferase (ALT/SGPT) 21 U/L Alkaline Phosphatase 71 U/L Total Creatine Kinase 86 U/L 144 U/L Creatine Kinase MB 1.0 ng/ml 1.9 ng/ml Creatine Kinase MB Ratio 1.2 1.3 Troponin I 0.243 ng/ml 0.369 ng/ml Total Protein 7.3 gm/dl Albumin 3.5 gm/dl Lipase 72 U/L Thyroid Stimulating Hormone (TSH) 0.209 uIu/ml Bedside Lactic Acid Venous 0.83 mmol/L Urine Color DK YELLOW Urine Appearance CLEAR Urine pH 5.5 Urine Specific [place] 1.024 Urine Protein 3+ Urine Glucose (UA) NEG Urine Ketones 1+ Urine Occult Blood 3+ Urine Nitrite NEG Urine Bilirubin NEG Urine Urobilinogen NEG Urine Leukocyte Esterase TRACE Urine WBC (Auto) 1-5 /hpf Urine RBC (Auto) 10-30 /hpf Urine Hyaline Casts (Auto) 5-10 /lpf Urine Epithelial Cells (Auto) 10-20 /lpf Urine Bacteria (Auto) NEG Test 12/29/16 08:14 Erythrocyte Sedimentation Rate 14 mm/hr C-Reactive Protein 6.55 mg/dl Procalcitonin 0.11 ng/ml EKG:This morning atrial fibrillation with a rate of 115 bpm, nonspecific ST-T abnormalities. Telemetry reviewed: Atrial fibrillation with an overall rapid heart rate, often in the 120 bpm range or faster Assessment & Plan #1. Atrial fibrillation: She has a history of paroxysmal atrial fibrillation, she feels that this is due to being hypothyroid in the past, currently she is not (perhaps she is hyperthyroid) however she is not terribly aware of the arrhythmia currently even though the rate is somewhat fast. Very often people with atrial fibrillation are only aware of some of the episodes and she may fall into that category although we don't know. Her current illness could trigger the atrial fibrillation conceivably. She is not on an anticoagulant as an outpatient due to bleeding, although she was on warfarin. She evidently was on aspirin subsequently, but that is not effective for stroke prevention. She was started on heparin on admission, presumably shortly after the atrial fibrillation started. I would leave her on heparin for now but I would consider institution of conventional anticoagulants at some point. The rate is fast, she is not on any AV michael blocking medications currently (she is on carvedilol at home, held I believe due to hypotension). At this point I think we need to get her back on medications, I think she should be on a beta heaven and her blood pressure has improved. I don't think with her coronary artery disease and her atrial fibrillation rapid heart rate that is a good idea to have her acutely off of her beta blockade. I'm going to reinstitute carvedilol at a lower dose. #2. Coronary artery disease: She has a history of coronary artery disease and did have some chest discomfort early during her illness but currently is not. The electrocardiogram does not show acute changes. Her cardiac enzymes are consistent with demand ischemia. I am going to reinstitute her beta blockade, but at this point would not consider invasive evaluation. Thank you for allowing me to participate in her care.
[2016-12-29] MEDS ORDERED: CARVEDILOL 12.5 MG TAB PO ONE ×2 (11:30→18:00)
--- NOTE | 2016-12-29 12:45 | Progress Note ---
Subjective Date of Service: Dec 29, 2016. Subjective Pt evaluation today including: conversation w/ patient, conversation w/ family , physical exam, chart review, lab review, review of studies, conversation w/ media consultant outside sales, review of inpatient medication list Report feeling much better, no fever no chills, no chest pain Problem List Medical Problems: (1) Elevated troponin Status: Acute (2) Fever Status: Acute (3) Rapid atrial fibrillation Status: Acute Review of Systems Constitutional: + fever, No chills, No sweats, No weight loss, No weakness, No fatigue, No problem reported Eyes: No worsening of vision, No eye pain, No redness, No discharge, No diplopia ENT: No hearing loss, No unusual epistaxis, No nasal symptoms, No sore throat, No tinnitus, No dental problems, No trouble swallowing Respiratory: No cough, No sputum, No wheezing, No shortness of breath, No dyspnea on exertion, No dyspnea at rest, No hemoptysis Cardiac: No chest pain, No orthopnea, No PND, No edema, No claudication, No palpitations Abdomen: No pain, No nausea, No vomiting, No diarrhea, No constipation Musculoskeletal: + joint pain (bilateral lower back pain), No muscle pain, No swelling, No calf pain Female : No dysuria, No urinary frequency, No hematuria, No incontinence, No abnormal vaginal bleeding, No vaginal discharge Neurologic: No memory loss, No paralysis, No weakness, No numbness/tingling, No vertigo, No balance problems Psychiatric: No depression symptoms, No anhedonism, No anxiety, No insomnia, No substance abuse Heme: No abnormal bleeding/bruising, No clotting problems, No swollen lymph nodes, No night sweats Endo: No fatigue, No excessive thirst, No excessive urination Skin: No rash, No itch, No new/changing skin lesions, No color change, No bleeding Objective Vital Signs Date Time Temp Pulse Resp B/P (MAP) Pulse Ox O2 Delivery O2 Flow Rate FiO2 12/29/16 11:57 37.4 107 19 140/86 (104) 99 Nasal Cannula 2.0 12/29/16 08:16 37.0 76 22 125/69 (87) 93 12/29/16 08:00 Nasal Cannula 2.0 12/29/16 04:00 97 Nasal Cannula 1.0 12/29/16 03:52 36.8 78 22 125/71 (89) 98 Nasal Cannula 2.0 12/29/16 01:30 37.1 12/29/16 00:04 39.4 105 22 130/80 (97) 98 Nasal Cannula 2.0 12/28/16 23:59 98 Nasal Cannula 1.0 12/28/16 22:40 115 109/67 12/28/16 22:37 39.3 115 12/28/16 20:41 36.7 115 22 109/67 96 12/28/16 20:38 113 22 12/28/16 20:31 109/67 12/28/16 20:23 110 22 12/28/16 20:16 37.8 115 18 115/69 96 Room Air 12/28/16 20:08 122 22 12/28/16 20:01 115/69 12/28/16 19:53 96 18 12/28/16 19:38 112 24 12/28/16 19:31 97/68 12/28/16 19:23 135 22 87 12/28/16 19:21 109/64 12/28/16 19:20 37.3 115 21 109/64 92 Room Air 12/28/16 19:08 123 22 91 12/28/16 19:01 86/52 12/28/16 18:53 112 22 91 12/28/16 18:38 104 25 91 12/28/16 18:31 90/68 12/28/16 18:23 127 18 91 12/28/16 18:20 93 Room Air 12/28/16 18:08 121 21 91 12/28/16 18:06 123 18 92/67 93 Room Air 12/28/16 18:03 125 23 92 12/28/16 18:03 135 108/59 12/28/16 18:02 135 16 108/59 92 Room Air 12/28/16 18:01 108/59 12/28/16 17:59 115 18 108/59 93 Room Air 12/28/16 17:59 105/59 12/28/16 17:58 109 22 12/28/16 17:56 135 16 12/28/16 17:53 108 28 12/28/16 17:48 108 15 12/28/16 17:43 129 28 12/28/16 17:38 108 30 12/28/16 17:33 113 22 12/28/16 17:28 123 32 12/28/16 17:23 127 25 12/28/16 17:18 116 37 12/28/16 17:16 115 12/28/16 17:13 136 37 12/28/16 17:08 125 33 12/28/16 17:03 142 34 12/28/16 16:58 119 29 12/28/16 16:57 130 12/28/16 16:20 94 Room Air 12/28/16 16:06 39.1 126 20 120/60 92 Room Air Physical Exam General Appearance: WD/WN, no apparent distress, + pertinent finding (ill- looking, conversational) Eyes: normal inspection, PERRL, EOMI, sclerae normal ENT: normal ENT inspection, hearing grossly normal, pharynx normal Neck: supple, no adenopathy, thyroid normal, no JVD, no carotid bruits, trachea midline Respiratory/Chest: chest non-tender, normal breath sounds, no respiratory distress, no accessory muscle use, + decreased breath sounds, + wheezing Cardiovascular: regular rate, rhythm, no edema, no gallop, no JVD, no murmur Abdomen: normal bowel sounds, non tender, soft, no organomegaly, no pulsatile mass Extremities: normal range of motion, non-tender, normal inspection, no pedal edema, no calf tenderness, normal capillary refill, pelvis stable Neurologic/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: 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, no motor/sensory deficits, alert, normal mood/affect, oriented x 3, + abnormal cerebellar tests Skin: normal color, warm/dry, no rash Lymphatic: no adenopathy Laboratory Results Last 24 Hours Test 12/28/16 16:31 12/28/16 16:39 12/28/16 17:40 12/29/16 03:02 White Blood Count 5.49 K/uL Red Blood Count 4.53 M/uL Hemoglobin 13.7 g/dL Hematocrit 41.3 % Mean Corpuscular Volume 91.2 fL Mean Corpuscular Hemoglobin 30.2 pg Mean Corpuscular Hemoglobin Concent 33.2 g/dl Platelet Count 154 K/uL Mean Platelet Volume 10.2 fL Neutrophils (%) (Auto) 88.3 % Lymphocytes (%) (Auto) 5.3 % Monocytes (%) (Auto) 4.9 % Eosinophils (%) (Auto) 0.0 % Basophils (%) (Auto) 1.1 % Neutrophils # (Auto) 4.85 K/uL Lymphocytes # (Auto) 0.29 K/uL Monocytes # (Auto) 0.27 K/uL Eosinophils # (Auto) 0.00 K/uL Basophils # (Auto) 0.06 K/uL RDW Standard Deviation 48.0 fL RDW Coefficient of Variation 14.3 % Immature Granulocyte % (Auto) 0.4 % Immature Granulocyte # (Auto) 0.02 K/uL Prothrombin Time 11.9 SECONDS Prothromb Time International Ratio 1.1 Activated Partial Thromboplast Time 30.3 SECONDS 43.2 SECONDS Partial Thromboplastin Ratio 1.2 1.7 Sodium Level 137 mmol/L Potassium Level 3.7 mmol/L Chloride Level 103 mmol/L Carbon Dioxide Level 27 mmol/L Anion Gap 7.0 mmol/L Blood Urea Nitrogen 20 mg/dl Creatinine 1.10 mg/dl Est Creatinine Clear Calc Drug Dose 43.2 ml/min Estimated GFR () 52.6 Estimated GFR (Non- 45.4 BUN/Creatinine Ratio 18.5 Random Glucose 115 mg/dl Calcium Level 8.6 mg/dl Magnesium Level 1.8 mg/dl Total Bilirubin 0.8 mg/dl Direct Bilirubin 0.2 mg/dl Aspartate Amino Transf (AST/SGOT) 23 U/L Alanine Aminotransferase (ALT/SGPT) 21 U/L Alkaline Phosphatase 71 U/L Total Creatine Kinase 86 U/L 144 U/L Creatine Kinase MB 1.0 ng/ml 1.9 ng/ml Creatine Kinase MB Ratio 1.2 1.3 Troponin I 0.243 ng/ml 0.369 ng/ml Total Protein 7.3 gm/dl Albumin 3.5 gm/dl Lipase 72 U/L Thyroid Stimulating Hormone (TSH) 0.209 uIu/ml Bedside Lactic Acid Venous 0.83 mmol/L Urine Color DK YELLOW Urine Appearance CLEAR Urine pH 5.5 Urine Specific [place] 1.024 Urine Protein 3+ Urine Glucose (UA) NEG Urine Ketones 1+ Urine Occult Blood 3+ Urine Nitrite NEG Urine Bilirubin NEG Urine Urobilinogen NEG Urine Leukocyte Esterase TRACE Urine WBC (Auto) 1-5 /hpf Urine RBC (Auto) 10-30 /hpf Urine Hyaline Casts (Auto) 5-10 /lpf Urine Epithelial Cells (Auto) 10-20 /lpf Urine Bacteria (Auto) NEG Test 8/6/17 08:14 12/29/16 10:59 12/29/16 12:39 Erythrocyte Sedimentation Rate 14 mm/hr C-Reactive Protein 6.55 mg/dl Procalcitonin 0.11 ng/ml Total Creatine Kinase 278 U/L Creatine Kinase MB 2.8 ng/ml Creatine Kinase MB Ratio 1.0 Troponin I 0.441 ng/ml Assessment and Plan 86-year-old white female admitted because of A. 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 continue on heparin drip IV low-dose no bolus per protocol. Follow-up, cardiology input appreciated, follow-up echo results Continue aspirin 81 mg by mouth daily, enalapril 20 mg by mouth daily. Nitroglycerin sublingual's when necessary. Cardiology input appreciated Maybe from hypothyroid Continue carvedilol which was using at home, at lower dose Mild elevated troponin, likely from A. fib or demanding ischemia or muscle strain with history of coronary artery disease Patient was having some chest discomfort early during her illness but currently is not. No more chest pain The electrocardiogram does not show acute changes. Her cardiac enzymes are consistent with demand ischemia. Cardiology on the case Possible pyelonephritis with UTI, and associated with Fever with a microscopic hematuria with abdominal CT Mild right perinephric fat stranding Continue Rocephin, follow-up urine and blood culture, Currently has no sign of pneumonia Wheezing in the physical exam history of tobacco abuse remote Will give Topamax embolization treatment as needed, TSH is 0.2, with l history of hypothyroidism , which is feel over corrected Continue to hold levothyroxine sodium for a few days, as patient is relatively hyperthyroid due to overcorrection. Hyperlipidemia--continue simvastatin 40 mg by mouth daily. DVT prophylaxis is on heparin GI prophylaxis will be started PT OT evaluation and treatment ordered d/w'ed with patient about CODE STATUS, she want full code, however if no hope she does not want to have prolonged life support Continued [facility] stay due to: multiple IV medications needed Discharge planning: home
[2016-12-29 13:07] LABS: PARTIAL THROMBOPLASTIN RATIO 2.2
[2016-12-29] MEDS ORDERED: LEVALBUTEROL/IPRATROPIUM NEB INH SCH (15:00)
[2016-12-29] MEDS: IPRATROPIUM BROMIDE NEB SOLN 0.02% 2.5 ML VIAL INH SCH ×2 (15:10→19:28)
[2016-12-29] MEDS: LEVALBUTEROL 1.25MG/0.5ML NEB INH SCH ×2 (15:10→19:28)
[2016-12-29] MEDS ORDERED: METOPROLOL TARTRATE 1 MG/ML VIAL IV STA (16:05)
[2016-12-29] MEDS ORDERED: MoRPHine SULFATE 4 MG/ML 1 ML CARP\\VIAL IV STA (16:07)
[2016-12-29] MEDS ORDERED: NITROGLYCERIN 0.4 MG SL PER TAB CHARGE SL STA (16:08)
[2016-12-29] MEDS: ACETAMINOPHEN 325 MG TAB PO PRN ×2 (16:10→20:20)
[2016-12-29] MEDS: METOPROLOL TARTRATE 1 MG/ML VIAL IV PRN (16:10)
[2016-12-29] MEDS ORDERED: MoRPHine SULFATE 4 MG/ML 1 ML CARP\\VIAL IV PRN (16:15)
--- NOTE | 2016-12-29 16:39 | DIAGNOSTIC IMAGING REPORT ---
CHEST ONE VIEW PORTABLE HISTORY: Atypical chest pain COMPARISON: Chest 12/28/2016. FINDINGS: No pneumothorax. No pleural effusions. The heart remains borderline enlarged. No focal lung consolidations to suggest pneumonia. No evidence for bone edema. IMPRESSION: No significant change compared to the prior study. No acute process. Electronically signed by: Shailesh Webster M.D. 12/29/2016 4:38 PM Dictated Date/Time: 12/29/2016 4:37 PM
[2016-12-29 16:56] LABS: CKMB/CK RATIO 0.7 (0-3.0)
[2016-12-29] MEDS ORDERED: NURSING VERBAL MED ORDER ONE ×2 (17:15→17:45)
[2016-12-29] MEDS ORDERED: FUROSEMIDE INJ 20 MG in SYRINGE 0 ML IV ONE (17:30)
[2016-12-29] MEDS ORDERED: NURSING DECISION MEDICATION ORDER SCH (17:30)
[2016-12-29] MEDS ORDERED: CEFTRIAXONE SOD INJ 1 GM in DEXTROSE 5% ADD-VANTAGE 50ML 50 ML IV SCH (19:00)
[2016-12-29 19:06] LABS: BUN/CREATININE RATIO 23.2 (10-20); CALCIUM 7.7 mg/dl (8.5-10.1); CREATININE 1.2 mg/dl (0.60-1.20); PHOSPHORUS 2.4 mg/dl (2.5-4.9); POTASSIUM 4.6 mmol/L (3.5-5.1)
[2016-12-29] MEDS: CARVEDILOL 25 MG TAB PO SCH (20:15)
[2016-12-29] MEDS ORDERED: CARVEDILOL 12.5 MG TAB PO SCH (21:00)
[2016-12-29 22:01] LABS: URINE APPEARANCE CLEAR (CLEAR); URINE BILIRUBIN NEG (NEG); URINE COLOR YELLOW; URINE NITRITE NEG (NEG); URINE PH 5.5 (4.5-7.5); URINE SPECIFIC GRAVITY 1.017 (1.000-1.030); UROBILINOGEN NEG (NEG)
[2016-12-29 22:04] LABS: MANUAL MICROSCOPIC REQUIRED? NO; REVIEW REQ? YES
[2016-12-30] VITALS (13 sets, daily range): BP systolic 113–147; BP diastolic 70–88; PULSE 80–112; TEMP 36.3–39.2; O2SAT 92–100
[2016-12-30] MEDS: METOPROLOL TARTRATE 1 MG/ML VIAL IV PRN ×2 (00:16→07:27)
[2016-12-30] MEDS ORDERED: METOPROLOL TARTRATE 1 MG/ML VIAL IV STA (01:05)
[2016-12-30] MEDS: ACETAMINOPHEN 325 MG TAB PO PRN ×3 (01:51→15:01)
[2016-12-30] MEDS ORDERED: CEFEPIME IV 2,000 MG in DEXTROSE 5% 100ML 100 ML IV STA (02:15)
--- NOTE | 2016-12-30 02:25 | Progress Note ---
Progress Note Date of Service Dec 30, 2016. Progress Note RESIDENT NIGHT CALL COVERAGE Called overnight regarding patients tachycardia & temperature. The tachycardia was thought to be due to atrial fibrillation with RVR so I initially provided a 2.5mg IV dose of Lopressor. She was persistently febrile with a T of 39.0C. With concern for pyelonephritis per the CT today, I decided to repeat labwork and broaded her ABx coverage to cefepime. Will continue to monitor. 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
[2016-12-30] MEDS ORDERED: CEFEPIME CONSULT ACTIVE PRN ×2 (02:30)
[2016-12-30 03:05] LABS: CALCIUM 7.6 mg/dl (8.5-10.1); CREATININE 1.1 mg/dl (0.60-1.20); POTASSIUM 4.1 mmol/L (3.5-5.1)
[2016-12-30 03:08] LABS: ALB/GLOB RATIO 0.8 (0.9-2)
[2016-12-30 03:21] LABS: HEMATOCRIT 36.3 % (37-47); MEAN CORPUSCULAR HEMOGLOBIN 29.6 pg (25-34); MEAN CORPUSCULAR HGB CONC 32.5 g/dl (32-36); MEAN PLATELET VOLUME 11.5 fL (7.4-10.4); PLATELET COUNT 67 K/uL (130-400); RED BLOOD COUNT 3.99 M/uL (4.2-5.4)
[2016-12-30 03:23] LABS: BASO % 0.2 %; BASO ABS # 0.01 K/uL (0-0.2); COMPLETE YES; ECHINOCYTES 1+; IG% 0.2 %; LYMPH % 5.1 %; LYMPH ABS # 0.22 K/uL (1.2-3.4); MONO % 3.3 %; NEUT % 91.2 %; OVALOCYTES 1+; PLT ESTIMATE DECREASED
[2016-12-30] MEDS: LEVALBUTEROL 1.25MG/0.5ML NEB INH SCH ×4 (03:45→19:24)
[2016-12-30] MEDS: IPRATROPIUM BROMIDE NEB SOLN 0.02% 2.5 ML VIAL INH SCH ×4 (03:45→19:24)
[2016-12-30 06:04] LABS: HEMATOCRIT 37.5 % (37-47); MEAN CELL VOLUME 92.6 fL (80-100); MEAN CORPUSCULAR HEMOGLOBIN 29.4 pg (25-34); MEAN CORPUSCULAR HGB CONC 31.7 g/dl (32-36); RED BLOOD COUNT 4.05 M/uL (4.2-5.4)
[2016-12-30 06:25] LABS: MEAN PLATELET VOLUME 10.4 fL (7.4-10.4); PLATELET COUNT 62 K/uL (130-400)
[2016-12-30 06:40] LABS: PARTIAL THROMBOPLASTIN RATIO 2.5
[2016-12-30 06:44] LABS: BUN/CREATININE RATIO 21.7 (10-20); CALCIUM 8.1 mg/dl (8.5-10.1); CREATININE 1.2 mg/dl (0.60-1.20); MAGNESIUM 2.2 mg/dl (1.8-2.4)
[2016-12-30 06:58] LABS: BASO % 0.3 %; BASO ABS # 0.01 K/uL (0-0.2); COMPLETE YES; GIANT PLATELETS 2+; IG% 0.3 %; LYMPH % 5.8 %; LYMPH ABS # 0.22 K/uL (1.2-3.4); MONO % 3.4 %; NEUT % 90.2 %
[2016-12-30] MEDS: ASPIRIN 81 MG ECTAB PO SCH (07:25)
[2016-12-30] MEDS: SIMVASTATIN 40 MG TAB PO SCH (07:25)
[2016-12-30] MEDS: FERROUS SULFATE 325 MG TAB PO SCH (07:25)
[2016-12-30] MEDS: CARVEDILOL 25 MG TAB PO SCH ×2 (07:26→19:19)
[2016-12-30] MEDS: MULTIVITAMIN TAB PO SCH (07:26)
[2016-12-30] MEDS: ENALAPRIL MALEATE 10 MG TAB PO SCH (07:26)
[2016-12-30] MEDS ORDERED: DILTIAZEM HCL 30 MG TAB PO ONE (09:45)
--- NOTE | 2016-12-30 09:58 | Progress Note ---
Subjective Date of Service: Dec 30, 2016. Subjective Pt evaluation today including: conversation w/ patient, physical exam, lab review, review of studies, review of inpatient medication list Pain: appears uncomfortable but denies pain PO Intake: poor Voiding: no voiding problems reviewed lab work and recent imaging (yesterday) and records from admission patient continues to have fevers, noted that resided changed Rocephin to Cefepime overnight due to fevers only evidence of infection is some stranding on right kidney on CT yesterday, however, UA with only 1-5 WBC and trace LE no growth on urine or blood cultures continues to be in afib with RVR, rates 130's on monitor despite Coreg 25mg patient cannot give me good history, she is confused but knows her name and she is at [facility] says she is short of breath with productive cough denies abdominal pain, denies flank pain, denies dysuria Problem List Medical Problems: (1) Elevated troponin Status: Acute (2) Fever Status: Acute (3) Rapid atrial fibrillation Status: Acute Review of Systems Constitutional: + fever, + chills, + sweats, + weakness, + fatigue Respiratory: + cough, + shortness of breath Neurologic: + problem reported (confusion) All Other Systems: Reviewed and Negative Medications Current Inpatient Medications Medications (Trade) Dose Ordered Sig/Durga Route Start Time Stop Time Status Last Admin Dose Admin Potassium Chloride/Sodium Chloride 1,000 ml @ 125 mls/hr Q8H IV 12/28/16 21:45 01/27/17 21:44 Future Hold 12/29/16 09:17 125 MLS/HR Acetaminophen (Tylenol Tab) 650 mg Q4H PRN PO 12/28/16 19:00 01/27/17 18:59 12/30/16 07:25 650 MG Nitroglycerin (Nitrostat Tab) 0.4 mg UD PRN SL 12/28/16 19:00 01/27/17 18:59 12/29/16 16:05 0.4 MG Aspirin (Ecotrin Tab) 81 mg DAILY PO 12/29/16 09:00 01/28/17 08:59 12/30/16 07:25 81 MG Enalapril Maleate (Vasotec Tab) 20 mg DAILY PO 12/29/16 09:00 01/28/17 08:59 12/30/16 07:26 20 MG Ferrous Sulfate (Feosol Tab) 325 mg DAILY PO 12/29/16 09:00 01/28/17 08:59 12/30/16 07:25 325 MG Multivitamins (Multivitamin Tab) 1 tab DAILY PO 12/29/16 09:00 01/28/17 08:59 12/30/16 07:26 1 TAB Simvastatin (Zocor Tab) 40 mg DAILY PO 12/29/16 09:00 01/28/17 08:59 12/30/16 07:25 40 MG Heparin Sodium/ Dextrose 500 ml @ 19 mls/hr Q24H PRN IV 12/28/16 21:15 01/27/17 21:14 12/30/16 01:55 19 MLS/HR Metoprolol Tartrate (Lopressor Iv) 2.5 mg Q4H PRN IV 12/28/16 21:30 01/27/17 21:29 12/30/16 07:27 2.5 MG Ipratropium [place] (Atrovent 0.02% 0.5MG/2.5ML Neb) 0.5 mg Q6R INH 12/29/16 15:00 01/28/17 14:59 12/30/16 07:05 0.5 MG Levalbuterol (Xopenex 1.25MG/ 0.5ML Neb) 1.25 mg Q6R INH 12/29/16 15:00 01/28/17 14:59 12/30/16 07:05 1.25 MG Morphine Sulfate (MoRPHine SULFATE INJ) 4 mg Q6 PRN IV 12/29/16 16:15 01/12/17 16:14 12/30/16 07:49 4 MG Carvedilol (Coreg Tab) 25 mg BID PO 12/29/16 21:00 01/28/17 20:59 12/30/16 07:26 25 MG Cefepime HCl 2000 mg/Dextrose 112.5 ml @ 225 mls/hr Q12H IV 12/30/16 14:00 01/01/17 13:59 Cefepime HCl (Consult) 1 ea UD PRN N/A 12/30/16 02:30 01/29/17 02:29 Vancomycin HCl 1000 mg/Sodium Chloride 270 ml @ 125 mls/hr NOW STAT IV 12/30/16 09:29 12/30/16 11:38 UNV Fluconazole/ Sodium Chloride 200 mg/Prmx 100 ml @ 100 mls/hr NOW IV 12/30/16 09:30 01/09/17 09:29 UNV Diltiazem HCl (Cardizem Tab) 30 mg Q6 PO 12/30/16 12:00 01/29/17 11:59 UNV Diltiazem HCl (Cardizem Tab) 30 mg 0932 ONCE PO 12/30/16 09:32 12/30/16 09:33 UNV Objective Vital Signs Date Time Temp Pulse Resp B/P (MAP) Pulse Ox O2 Delivery O2 Flow Rate FiO2 12/30/16 08:17 38.5 100 12/30/16 08:10 39.2 12/30/16 08:08 147/88 (107) 12/30/16 07:27 119 185/102 12/30/16 07:07 109 22 97 Nasal Cannula 2.0 12/30/16 04:00 36.8 106 23 129/70 (89) 97 Nasal Cannula 2.0 12/30/16 04:00 97 Nasal Cannula 3.0 12/30/16 03:49 91 20 98 Nasal Cannula 2.0 12/30/16 01:52 39.0 12/30/16 01:42 136 12/30/16 00:16 140 12/29/16 23:59 97 Nasal Cannula 3.0 12/29/16 23:51 38.4 127 22 127/77 (94) 94 Nasal Cannula 2.0 12/29/16 20:14 38.9 118 18 125/81 (96) 98 Nasal Cannula 2.0 12/29/16 20:00 98 Nasal Cannula 3.0 12/29/16 19:25 97 20 97 Nasal Cannula 2.0 12/29/16 18:20 38.4 90 121/74 (90) 97 Nasal Cannula 2.0 12/29/16 17:15 120 118/74 (89) 95 Nasal Cannula 2.0 12/29/16 16:12 155/97 (116) 12/29/16 16:10 123 162/118 12/29/16 16:05 162/118 (133) 12/29/16 16:00 Nasal Cannula 2.0 12/29/16 15:50 39.1 112 22 165/106 (125) 96 Nasal Cannula 2.0 146/103 (117) 12/29/16 15:03 108 22 97 Nasal Cannula 2.0 12/29/16 12:00 Nasal Cannula 3.0 12/29/16 11:57 37.4 107 19 140/86 (104) 99 Nasal Cannula 2.0 Physical Exam General Appearance: + mild distress, + obese Eyes: normal inspection, EOMI Neck: supple, no adenopathy, no JVD, trachea midline Respiratory/Chest: chest non-tender, lungs clear, normal breath sounds, no respiratory distress, no accessory muscle use Cardiovascular: no edema, no gallop, no JVD, no murmur, + tachycardia, + irregularly irregular Abdomen: normal bowel sounds, non tender, soft, no organomegaly Extremities: normal range of motion, non-tender, normal inspection, no pedal edema, no calf tenderness, normal capillary refill, pelvis stable Neurologic/Psychiatric: able seaman II-XII nml as tested, no motor/sensory deficits, alert, + disoriented Skin: normal color, warm/dry, no rash Laboratory Results Last 24 Hours Test 12/29/16 10:59 12/29/16 12:39 12/29/16 16:12 12/29/16 18:31 Total Creatine Kinase 278 U/L 399 U/L Creatine Kinase MB 2.8 ng/ml 2.7 ng/ml Creatine Kinase MB Ratio 1.0 0.7 Troponin I 0.441 ng/ml 0.567 ng/ml Activated Partial Thromboplast Time 57.7 SECONDS Partial Thromboplastin Ratio 2.2 Pro-B-Type Natriuretic Peptide 89288 pg/ml Sodium Level 137 mmol/L Potassium Level 4.6 mmol/L Chloride Level 106 mmol/L Carbon Dioxide Level 23 mmol/L Anion Gap 8.0 mmol/L Blood Urea Nitrogen 28 mg/dl Creatinine 1.20 mg/dl Est Creatinine Clear Calc Drug Dose 39.6 ml/min Estimated GFR () 47.4 Estimated GFR (Non- 40.9 BUN/Creatinine Ratio 23.2 Random Glucose 128 mg/dl Calcium Level 7.7 mg/dl Phosphorus Level 2.4 mg/dl Magnesium Level 2.0 mg/dl Test 12/29/16 20:50 12/30/16 02:25 12/30/16 05:30 12/30/16 07:55 Urine Color YELLOW Urine Appearance CLEAR Urine pH 5.5 Urine Specific [place] 1.017 Urine Protein 1+ Urine Glucose (UA) NEG Urine Ketones NEG Urine Occult Blood 2+ Urine Nitrite NEG Urine Bilirubin NEG Urine Urobilinogen NEG Urine Leukocyte Esterase TRACE Urine WBC (Auto) 1-5 /hpf Urine RBC (Auto) 5-10 /hpf Urine Hyaline Casts (Auto) 1-5 /lpf Urine Epithelial Cells (Auto) 5-10 /lpf Urine Bacteria (Auto) NEG Urine Yeast (Auto) PRESENT White Blood Count 4.30 K/uL 3.80 K/uL Red Blood Count 3.99 M/uL 4.05 M/uL Hemoglobin 11.8 g/dL 11.9 g/dL Hematocrit 36.3 % 37.5 % Mean Corpuscular Volume 91.0 fL 92.6 fL Mean Corpuscular Hemoglobin 29.6 pg 29.4 pg Mean Corpuscular Hemoglobin Concent 32.5 g/dl 31.7 g/dl Platelet Count 67 K/uL 62 K/uL Mean Platelet Volume 11.5 fL 10.4 fL Neutrophils (%) (Auto) 91.2 % 90.2 % Lymphocytes (%) (Auto) 5.1 % 5.8 % Monocytes (%) (Auto) 3.3 % 3.4 % Eosinophils (%) (Auto) 0.0 % 0.0 % Basophils (%) (Auto) 0.2 % 0.3 % Neutrophils # (Auto) 3.92 K/uL 3.43 K/uL Lymphocytes # (Auto) 0.22 K/uL 0.22 K/uL Monocytes # (Auto) 0.14 K/uL 0.13 K/uL Eosinophils # (Auto) 0.00 K/uL 0.00 K/uL Basophils # (Auto) 0.01 K/uL 0.01 K/uL RDW Standard Deviation 49.7 fL 50.1 fL RDW Coefficient of Variation 14.7 % 14.7 % Immature Granulocyte % (Auto) 0.2 % 0.3 % Immature Granulocyte # (Auto) 0.01 K/uL 0.01 K/uL Platelet Estimate DECREASED Ovalocytes 1+ Echinocytes 1+ Sodium Level 135 mmol/L 135 mmol/L Potassium Level 4.1 mmol/L 4.0 mmol/L Chloride Level 104 mmol/L 104 mmol/L Carbon Dioxide Level 24 mmol/L 27 mmol/L Anion Gap 7.0 mmol/L 4.0 mmol/L Blood Urea Nitrogen 26 mg/dl 26 mg/dl Creatinine 1.10 mg/dl 1.20 mg/dl Est Creatinine Clear Calc Drug Dose 43.2 ml/min 39.6 ml/min Estimated GFR () 52.6 47.4 Estimated GFR (Non- 45.4 40.9 BUN/Creatinine Ratio 24.0 21.7 Random Glucose 114 mg/dl 119 mg/dl Lactic Acid Level 0.9 mmol/L Calcium Level 7.6 mg/dl 8.1 mg/dl Total Bilirubin 0.9 mg/dl Aspartate Amino Transf (AST/SGOT) 96 U/L Alanine Aminotransferase (ALT/SGPT) 72 U/L Alkaline Phosphatase 74 U/L Total Protein 6.2 gm/dl Albumin 2.8 gm/dl Globulin 3.4 gm/dl Albumin/Globulin Ratio 0.8 Giant Platelets 2+ Activated Partial Thromboplast Time 65.1 SECONDS Partial Thromboplastin Ratio 2.5 Phosphorus Level 3.0 mg/dl Magnesium Level 2.2 mg/dl Assessment and Plan 86-year-old white female admitted with atrial fibrillation with RVR and fever, possible right sided pyelonephritis on CT scan but UA and urine culture not suggesting infection - Paroxysmal afib, now with persistent afib and RVR rates in 130s despite Coreg 25mg BID will give a dose of Cardizem 30mg PO now since BP in 150's systolic continue Cardizem 30mg q6 and follow HR f/u on cardiology recommendations today echo pending continue heparin gtt for AC - Persistent fevers, unclear etiology conflicting results with right kidney stranding and possible pyelonephritis but only 1-5 WBC on UA and no growth on urine culture CXR on 12/29 with no signs of infiltrate, patient reports coughing/SOB but unsure how reliable she is right now could consider drug fever? on Rocephin and Cefepime since admission but she had a fever on admission yeast was seen in urine, no growth on culture will change antibiotics to Levaquin, Vancomycin and will add Diflucan for fungal check C diff if she has diarrhea consult ID for their recommendations - Demand ischemia: mild troponin bump, no chest pain, continue Aspirin and statin follow up echo results - Hypothyroidism: TSH low at 0.2 so her dose of Synthroid 150mcg was likely too high continue to hold Synthroid Hyperlipidemia--continue simvastatin 40 mg by mouth daily. DVT prophylaxis is on heparin gtt GI prophylaxis will be started PT OT evaluation and treatment ordered full code Continued [facility] stay due to: multiple IV medications needed Discharge planning: home
[2016-12-30] MEDS ORDERED: VANCOMYCIN CONSULT ACTIVE PRN (10:00)
[2016-12-30] MEDS ORDERED: LEVOFLOXACIN CONSULT ACTIVE PRN (10:15)
[2016-12-30] MEDS: LEVOFLOXACIN / D5W 750 MG in PREMIXED IN D5W 150 ML IV SCH (10:29)
[2016-12-30] MEDS ORDERED: VANCOMYCIN INJ 2,350 MG in SODIUM CHLORIDE 0.9% 500ML 500 ML IV ONE (10:30)
--- NOTE | 2016-12-30 10:39 | Pharmacy Progress Note ---
Pharmacy Abx Initial Consult Date of Service Dec 30, 2016. Pharmacy Dosing Scope Date of Consult: 12/30/16 Consultation requested by: Dr. Villa Pharmacy is consulted to initiate Vancomycin/Levaquin IV dosing therapy, order appropriate labs and adjust drug dose/frequency. Subjective The patient is a 86 year old female admitted on Dec 28, 2016 at 19:33 with Afib. Objective Height (Feet): 5 Height (Inches): 7 Weight (Kilograms): 93.800 Vital Signs (Past 12Hrs) Vital Signs Past 12 Hours Date Time Temp Pulse Resp B/P (MAP) Pulse Ox O2 Delivery O2 Flow Rate FiO2 12/30/16 08: 38.5 100 12/30/16 08:10 39.2 12/30/16 08:08 147/88 (107) 12/30/16 08:00 Nasal Cannula 3.0 12/30/16 07:27 119 185/102 12/30/16 07:07 109 22 97 Nasal Cannula 2.0 12/30/16 04:00 36.8 106 23 129/70 (89) 97 Nasal Cannula 2.0 12/30/16 04:00 97 Nasal Cannula 3.0 12/30/16 03:49 91 20 98 Nasal Cannula 2.0 12/30/16 01:52 39.0 12/30/16 01:42 136 12/30/16 00:16 140 12/29/16 23:59 97 Nasal Cannula 3.0 12/29/16 23:51 38.4 127 22 127/77 (94) 94 Nasal Cannula 2.0 Lab Results (24Hrs) Laboratory Tests (24 Hours) Test 12/29/16 16:12 12/30/16 02:25 12/30/16 05:30 Total Creatine Kinase 399 U/L (26-192) H Lactic Acid Level 0.9 mmol/L (0.4-2.0) White Blood Count 3.80 K/uL (4.8-10.8) L Red Blood Count 4.05 M/uL (4.2-5.4) L Hemoglobin 11.9 g/dL (12.0-16.0) L Hematocrit 37.5 % (37-47) Mean Corpuscular Volume 92.6 fL (80-100) Mean Corpuscular Hemoglobin 29.4 pg (25-34) Mean Corpuscular Hemoglobin Concent 31.7 g/dl (32-36) L Platelet Count 62 K/uL (130-400) L Mean Platelet Volume 10.4 fL (7.4-10.4) Neutrophils (%) (Auto) 90.2 % Lymphocytes (%) (Auto) 5.8 % Monocytes (%) (Auto) 3.4 % Eosinophils (%) (Auto) 0.0 % Basophils (%) (Auto) 0.3 % Neutrophils # (Auto) 3.43 K/uL (1.4-6.5) Lymphocytes # (Auto) 0.22 K/uL (1.2-3.4) L Monocytes # (Auto) 0.13 K/uL (0.11-0.59) Eosinophils # (Auto) 0.00 K/uL (0-0.5) Basophils # (Auto) 0.01 K/uL (0-0.2) Micro Results Date/Time Source Procedure Growth Status 12/30/16 02:42 Blood Blood Culture Pending Received 12/30/16 02:25 Blood Blood Culture Pending Received 12/28/16 16:46 Blood Blood Culture - Preliminary NO GROWTH TO DATE. Resulted 12/28/16 16:31 Blood Blood Culture - Preliminary NO GROWTH TO DATE. Resulted 12/28/16 17:40 Urine,Catheterized Urine Culture - Final NO GROWTH - LESS THAN 1,000 COLONIES/ML Complete Assessment & Plan Assessment 86 year old female originally on Rocephin IV upon admission for possible pyelonephritis and fevers, now broadened to Vancomycin/Levaquin/Fluconazole IV for ongoing fevers with unclear etiology. ID consult placed. Repeat blood cultures pending. Urine with pin-point growth- awaiting results. Plan Vancomycin IV * Loading dose: 2350 mg (25 mg/kg) * Maintenance dose: 1750 mg IV (18.5 mg/kg) every 24 hours * Goal trough level 15 to 20 mcg/mL * Trough level ordered for 01/02/17 prior to the 1000 dose. Levaquin * 750 mg IV every 48 hours for CrCl 20-49 mL/min Pharmacy will continue to follow and will adjust dose/frequency as necessary. Thank you.
--- NOTE | 2016-12-30 10:45 | Progress Note ---
Progress Note Date of Service Dec 30, 2016. Progress Note ID Consult Dictated # [id number] A/P: 1. Fever - unclear source, no clear infection identified, ? non infectious -continue abx for now, broadened overnight -repeat blood cultures pending -could change to caspofungin if fever persists but UA negative for infection, unclear significance -Left renal mass noted, ? significance -Will follow, thank you
[2016-12-30] MEDS ORDERED: FLUCONAZOLE / NSS 200 MG in PREMIXED NSS 100 ML IV ONE (11:00)
[2016-12-30] MEDS ORDERED: BIVALIRUDIN IV ONE ×2 (11:15→13:30)
[2016-12-30] MEDS ORDERED: BIVALIRUDIN IV PRN ×2 (11:15→13:30)
[2016-12-30] MEDS ORDERED: SODIUM CHLORIDE 0.9% IV PRN ×2 (11:15→13:30)
--- NOTE | 2016-12-30 11:31 | CARDIOLOGY PROGRESS NOTE ---
DATE: 12/30/2016 SUBJECTIVE: The patient was seen by me this morning in her telemetry unit room. She is very fatigued. She complains of diffuse myalgias. She had mild nausea this morning. This has since resolved. She had sensation of dyspnea this morning. This has improved. She denies any chest pain. No palpitations, lightheadedness, or syncope. No abdominal pain. She does complain of a dry mouth. MEDICATIONS: This morning with oral vancomycin 1750 mg IV q. 24 hours, fluconazole 100 mg IV daily, diltiazem 300 mg p.o. q. 6 hours, levofloxacin 750 mg IV q. 48 hours, carvedilol 25 mg b.i.d., aspirin 81 mg daily, enalapril 20 mg daily, ferrous sulfate 325 mg daily, multivitamin 1 daily, simvastatin 40 mg daily, and several p.r.n. medications. ALLERGIES AND ADVERSE DRUG REACTIONS: No known drug allergies. Review of monitor shows atrial fibrillation with rapid ventricular response. PHYSICAL EXAMINATION: VITAL SIGNS: Her maximum temperature on this admission was 39.4 at 00:04 on December 29. This morning, her temperature at 08:10 was 39.2. Current pulse rate on monitor in her room is in the upper 90s to low 100s. Most recent blood pressure 147/88. Earlier this morning, this was 185/102. GENERAL APPEARANCE: Shows her to be very fatigued. MOUTH: Dry mucous membranes. NECK: No jugular venous tension. LUNGS: Scant bibasilar rales. Improved with deep breathing. HEART: Increased rate. Irregular rhythm. No murmur or rub heard. ABDOMEN: Soft. Nontender. No palpable masses or organomegaly. No bruits. EXTREMITIES: No calf tenderness. No cyanosis or clubbing. No edema. NEUROLOGIC: Alert and oriented x3. Motor grossly intact. LABORATORY DATA: This morning with WBC 3.80, hemoglobin 11.9, hematocrit 37.5, and platelet count 62. Her platelet count on December 28 was 154. PTT this morning was 65.1. Metabolic profile this morning with sodium 135, potassium 4.0, chloride 104, carbon dioxide 27, BUN 26, creatinine 1.20, random glucose 119, and magnesium 2.2. Her AST is 96 and ALT 72. This morning, when I first saw the patient's labs, I ordered heparin induced thrombocytopenia screen. The screen has returned positive. The additional testing results are still pending. These are the serotonin release assay testing. ASSESSMENT: 1. Febrile illness. Her urine culture on December 28 reveals less than 1000 colonies per mL. Blood cultures from December 28 is negative. Repeat blood cultures overnight pending. 2. Intravascular volume depletion. 3. History of coronary artery disease. Prior cardiac catheterization with total distal RCA occlusion. [id number]-syxcd and dxwqc-cq-mibtz collaterals. Normal LV systolic function in the past. She has a total distal RCA occlusion. She also has moderate disease in the ostium of left circumflex. Extensive calcifications in the circumflex. It has been opted to treat her with medical therapy. No current anginal symptoms. Troponin I is mildly elevated. Certainly, this could be from demand myocardial ischemia. She has had elevated ventricular rates with her atrial fibrillation. 4. History of paroxysmal atrial fibrillation. In persistent atrial fibrillation this admission. Elevated ventricular rates. The increased temperature would be contributing to this. 5. Hypertension. 6. Thrombocytopenia. Initial screen for heparin induced thrombocytopenia is positive. No bleeding complaints at this time. No symptoms of thrombotic episode. RECOMMENDATIONS: 1. Discontinue heparin. I have already done so. 2. Initiate alternative anticoagulation therapy. This has been ordered by me in consultation with the pharmacy. She will be started on bivalirudin. 3. Continue bivalirudin until the platelet count normalizes. She could then be switched to an oral anticoagulant. 4. Increase diltiazem dose to 60 mg q. 6 hours. 5. Treatment of her febrile illness by the hospitalist and infectious disease services. 6. Monitor PTT on bivalirudin.
[2016-12-30] MEDS ORDERED: MoRPHine SULFATE 2 MG/ML CARP IV STA (13:10)
[2016-12-30] MEDS ORDERED: OPTIRAY 320 IV PRN (13:15)
--- NOTE | 2016-12-30 13:24 | INFECT. DISEASE CONSULTATION ---
DATE OF CONSULTATION: 12/30/2016 REQUESTING PHYSICIAN: Dr. Villa. HISTORY OF PRESENT ILLNESS: This is an 86-year-old female who was admitted after she woke up on the morning of the with chest discomfort and nausea. She denies any vomiting. She has been persistently febrile since admission to the hospital. Her T-max over the last 24 hours was 39.2. She has been leukopenic. Her urinalysis is unremarkable with 1-5 wbc's and bacteria; however, there was yeast. Blood cultures were drawn on the as well as a urine culture, all of which were negative. She did undergo a chest x-ray on the which was negative for consolidation. She did have a CAT scan of the abdomen and pelvis which showed some right perinephric stranding which appear to be chronic in nature. She has no urinary complaints. Her TSH is low. She was found to be in aFib with RVR. She is being followed by cardiology. On my examination, she states she is feeling weak and fatigued but denies any chest pain, cough or shortness of breath. She does continue to feel that she has upset stomach and she is having some nausea; however, she denies any vomiting or diarrhea. She does have minimal abdominal discomfort. She denies any joint pain or muscle pain. She denies any rashes or lesions on her skin. She was placed empirically on vancomycin, cefepime and fluconazole and appears to be tolerating these antibiotics well. Repeat blood cultures have been ordered. Her remaining review of systems is unremarkable. PAST MEDICAL HISTORY: Significant for paroxysmal aFib, hypertension and coronary artery disease with WA. PAST SURGICAL HISTORY: She has had appendectomy, hip replacement and knee replacement as well. FAMILY HISTORY: Noncontributory. SOCIAL HISTORY: Significant for history of tobacco use. She denies any drug or alcohol use. ALLERGIES: SHE IS ALLERGIC TO SHELLFISH. CURRENT MEDICATIONS: Include vancomycin, fluconazole, Cardizem, Levaquin, Coreg, morphine, Atrovent, Xopenex, Vasotec, Ecotrin, iron, multivitamins, Zocor, Lopressor, and Tylenol. PHYSICAL EXAMINATION: VITAL SIGNS: Her current temperature is 38.5. T-max is 39.2. She has been persistently febrile, pulse 119, respiratory rate is in the 20s, blood pressure is 147/88, oxygen saturation is 100% on 3 liters nasal cannula. GENERAL: She is awake, alert and oriented, but somewhat lethargic, but arousable and appropriate. HEENT: Mucous membranes are dry. Extraocular muscles are intact. HEART: Tachycardic. I do not auscultate a murmur. LUNGS: Clear with poor inspiratory effort. ABDOMEN: Nondistended and nontender. EXTREMITIES: There is no lower extremity edema bilaterally. SKIN: Reveals no rash. Surgical incision of the knee and hip are without erythema. LABORATORY STUDIES: CBC reveals a white blood cell count of 3.8, hemoglobin 11.9 and platelets are 62. Sed rate is normal at 14. Chemistry panel reveals a sodium of 135, potassium 4.0, chloride 104, bicarbonate 27, BUN 26, creatinine 1.2, glucose is 119. LFTs are within normal limits. TSH is low. Urinalysis on the 6th showed +2 blood, no nitrites, trace leukocyte esterase, 1-5 wbc's and no bacteria, but yeast was present. Troponins are positive. Procalcitonin is unremarkable. Lipase was 72, blood cultures and urine cultures on the are negative. Repeat blood cultures on the are pending. IMAGING DATA: Chest x-ray was most recently done on the and shows no acute process. Again, CAT scan of the abdomen and pelvis on the 6th showed right perinephric stranding, a 1.2 cm lesion on the left kidney which could not be characterized, there is a small left inguinal hernia, compression fractures at L1 and L3, mild perinephric stranding, question pyelonephritis and diverticulosis. ASSESSMENT AND PLAN: Fever: She will remain on empiric antibiotics. Certainly with yeast in her urine, she could be transitioned to IV caspofungin and there is some concern for resistance; however, her urine culture did not grow and her urinalysis was unremarkable for infection. Her antibiotics were broadened overnight. She did mention to the hospitalist that she was having some shortness of breath. If this continues, it may be worthwhile to undergo CAT scan of the chest. If certainly would also look to noninfectious sources for fevers, I doubt medication as she was febrile upon arrival to the hospital. Certainly deep vein thrombosis would be of concern and she could undergo Dopplers; however, I do not notice any changes on exam to suggest that. We will continue to follow along with you. Thank you for this consultation.
[2016-12-30] MEDS ORDERED: METHYLPREDNISOLONE IV 125 MG in SYRINGE 0 ML IV SCH (13:30)
[2016-12-30] MEDS: DILTIAZEM HCL 30 MG TAB PO SCH ×2 (13:33→18:40)
[2016-12-30] MEDS ORDERED: CEFEPIME IV 2000 MG in DEXTROSE 5% 100ML IV SCH (14:00)
--- NOTE | 2016-12-30 14:11 | DIAGNOSTIC IMAGING REPORT ---
CT ANGIOGRAPHY OF THE CHEST, PULMONARY EMBOLUS PROTOCOL CLINICAL HISTORY: Tachycardia, hypoxia COMPARISON STUDY: Chest CT October 27, 2009 and chest radiograph December 29, 2016. TECHNIQUE: Following IV administration of 92 mL of Optiray-320, helical axial images of the chest were obtained utilizing the pulmonary embolus protocol. Maximal intensity projections and sagittal and coronal reformats were viewed on an independent 3D workstation. IV contrast was administered without complication. A dose lowering technique was utilized adhering to the principles of ALARA. CT DOSE: 1390.37 mGy.cm FINDINGS: No pulmonary emboli are identified although the segmental and subsegmental pulmonary arteries are inadequately assessed due to respiratory motion. The heart is moderately enlarged. There is no pericardial effusion. Extensive coronary artery calcification is present. There is no pneumothorax or pleural effusion. Moderate upper lobe predominant emphysema is noted. The lungs are suboptimally assessed due to respiratory motion but no areas of consolidation to suggest pneumonia are present. Bony thorax is unremarkable. IMPRESSION: 1. No pulmonary emboli identified although exam moderately compromised by respiratory motion. 2. Moderate cardiomegaly and extensive coronary artery calcification. 3. Moderate upper lobe predominant emphysema. 4. No acute intrathoracic findings identified. Electronically signed by: Byron Hatfield M.D. 12/30/2016 2:10 PM Dictated Date/Time: 12/30/2016 2:03 PM
[2016-12-30] MEDS ORDERED: LEVALBUTEROL/IPRATROPIUM NEB INH SCH (15:00)
[2016-12-30 15:11] LABS: HEMATOCRIT 34.9 % (37-47); MEAN CELL VOLUME 90.9 fL (80-100); MEAN CORPUSCULAR HEMOGLOBIN 29.4 pg (25-34); MEAN CORPUSCULAR HGB CONC 32.4 g/dl (32-36); RED BLOOD COUNT 3.84 M/uL (4.2-5.4); WHITE BLOOD COUNT 3.18 K/uL (4.8-10.8)
[2016-12-30 16:03] LABS: MEAN PLATELET VOLUME 11.6 fL (7.4-10.4); PLATELET COUNT 51 K/uL (130-400)
[2016-12-30 16:06] LABS: BASO % 0.3 %; BASO ABS # 0.01 K/uL (0-0.2); COMPLETE YES; IG% 0.3 %; LYMPH % 6.3 %; MONO % 6.6 %; NEUT % 86.5 %; OVALOCYTES 1+
[2016-12-30] MEDS ORDERED: ARGATROBAN CONSULT ACTIVE PRN (16:45)
--- NOTE | 2016-12-30 16:54 | Pharmacy Progress Note ---
Anticoagulant Dosing Consult Date of Service: Dec 30, 2016. Pharmacy Dosing Scope Pharmacy is consulted to d/c iv bivalirudin and transition to IV argatroban dosing therapy, order appropriate labs and adjust drug dose/frequency. Subjective The patient is a 86 year old female admitted on Dec 28, 2016 at 19:33 for Atrial Fibrillation With Rvr, Uti. Patient is to transition to THERAPEUTIC IV argatroban for A.Fib, R/O HIT. Heparin PF-4 Antibody screen was positive. Serotonin Release Assay pending.[ indication.] Pertinent PMH: PLTs trending down 154 (12/28/16) --> 62 (12/30/16), advanced age, HTN, hepatic impairment, moderate/severe RI, CHF, CAD. CHADS2 ~2-3. Objective Height (Feet): 5 Height (Inches): 7 Weight (Kilograms): 93.800 Laboratory Results: Last 24 Hours Test 12/29/16 18:31 12/30/16 02:25 12/30/16 05:30 12/30/16 14:44 Blood Urea Nitrogen 28 mg/dl (7-18) 26 mg/dl (7-18) 26 mg/dl (7-18) Creatinine 1.20 mg/dl (0.60-1.20) 1.10 mg/dl (0.60-1.20) 1.20 mg/dl (0.60-1.20) White Blood Count 4.30 K/uL (4.8-10.8) 3.80 K/uL (4.8-10.8) 3.18 K/uL (4.8-10.8) Red Blood Count 3.99 M/uL (4.2-5.4) 4.05 M/uL (4.2-5.4) 3.84 M/uL (4.2-5.4) Hemoglobin 11.8 g/dL (12.0-16.0) 11.9 g/dL (12.0-16.0) 11.3 g/dL (12.0-16.0) Hematocrit 36.3 % (37-47) 37.5 % (37-47) 34.9 % (37-47) Mean Corpuscular Volume 91.0 fL (80-100) 92.6 fL (80-100) 90.9 fL (80-100) Mean Corpuscular Hemoglobin 29.6 pg (25-34) 29.4 pg (25-34) 29.4 pg (25-34) Mean Corpuscular Hemoglobin Concent 32.5 g/dl (32-36) 31.7 g/dl (32-36) 32.4 g/dl (32-36) Platelet Count 67 K/uL (130-400) 62 K/uL (130-400) 51 K/uL (130-400) Mean Platelet Volume 11.5 fL (7.4-10.4) 10.4 fL (7.4-10.4) 11.6 fL (7.4-10.4) Neutrophils (%) (Auto) 91.2 % 90.2 % 86.5 % Lymphocytes (%) (Auto) 5.1 % 5.8 % 6.3 % Monocytes (%) (Auto) 3.3 % 3.4 % 6.6 % Eosinophils (%) (Auto) 0.0 % 0.0 % 0.0 % Basophils (%) (Auto) 0.2 % 0.3 % 0.3 % Neutrophils # (Auto) 3.92 K/uL (1.4-6.5) 3.43 K/uL (1.4-6.5) 2.75 K/uL (1.4-6.5) Lymphocytes # (Auto) 0.22 K/uL (1.2-3.4) 0.22 K/uL (1.2-3.4) 0.20 K/uL (1.2-3.4) Monocytes # (Auto) 0.14 K/uL (0.11-0.59) 0.13 K/uL (0.11-0.59) 0.21 K/uL (0.11-0.59) Eosinophils # (Auto) 0.00 K/uL (0-0.5) 0.00 K/uL (0-0.5) 0.00 K/uL (0-0.5) Basophils # (Auto) 0.01 K/uL (0-0.2) 0.01 K/uL (0-0.2) 0.01 K/uL (0-0.2) Activated Partial Thromboplast Time 65.1 SECONDS (21.0-31.0) Partial Thromboplastin Ratio 2.5 Last 72 Hours Test 12/28/16 16:31 12/30/16 02:25 12/30/16 05:30 12/30/16 07:55 Alanine Aminotransferase (ALT/SGPT) 21 U/L 72 U/L Aspartate Amino Transf (AST/SGOT) 23 U/L 96 U/L Direct Bilirubin 0.2 mg/dl White Blood Count 5.49 K/uL 4.30 K/uL 3.80 K/uL Red Blood Count 4.53 M/uL 3.99 M/uL 4.05 M/uL Hemoglobin 13.7 g/dL 11.8 g/dL 11.9 g/dL Hematocrit 41.3 % 36.3 % 37.5 % Mean Corpuscular Volume 91.2 fL 91.0 fL 92.6 fL Mean Corpuscular Hemoglobin 30.2 pg 29.6 pg 29.4 pg Mean Corpuscular Hemoglobin Concent 33.2 g/dl 32.5 g/dl 31.7 g/dl Platelet Count 154 K/uL 67 K/uL 62 K/uL Mean Platelet Volume 10.2 fL 11.5 fL 10.4 fL Neutrophils (%) (Auto) 88.3 % 91.2 % 90.2 % Lymphocytes (%) (Auto) 5.3 % 5.1 % 5.8 % Monocytes (%) (Auto) 4.9 % 3.3 % 3.4 % Eosinophils (%) (Auto) 0.0 % 0.0 % 0.0 % Basophils (%) (Auto) 1.1 % 0.2 % 0.3 % Neutrophils # (Auto) 4.85 K/uL 3.92 K/uL 3.43 K/uL Lymphocytes # (Auto) 0.29 K/uL 0.22 K/uL 0.22 K/uL Monocytes # (Auto) 0.27 K/uL 0.14 K/uL 0.13 K/uL Eosinophils # (Auto) 0.00 K/uL 0.00 K/uL 0.00 K/uL Basophils # (Auto) 0.06 K/uL 0.01 K/uL 0.01 K/uL Prothromb Time International Ratio 1.1 Total Bilirubin 0.8 mg/dl 0.9 mg/dl MARCK UF Heparin Low Dose 0.1 IU/mL Pending MARCK UF Heparin Low Dose 0.5 IU/mL Pending MARCK Unfractionat Heparin High Dose Pending MARCK Unfractionated Heparin Pending Test 12/30/16 14:44 White Blood Count 3.18 K/uL Red Blood Count 3.84 M/uL Hemoglobin 11.3 g/dL Hematocrit 34.9 % Mean Corpuscular Volume 90.9 fL Mean Corpuscular Hemoglobin 29.4 pg Mean Corpuscular Hemoglobin Concent 32.4 g/dl Platelet Count 51 K/uL Mean Platelet Volume 11.6 fL Neutrophils (%) (Auto) 86.5 % Lymphocytes (%) (Auto) 6.3 % Monocytes (%) (Auto) 6.6 % Eosinophils (%) (Auto) 0.0 % Basophils (%) (Auto) 0.3 % Neutrophils # (Auto) 2.75 K/uL Lymphocytes # (Auto) 0.20 K/uL Monocytes # (Auto) 0.21 K/uL Eosinophils # (Auto) 0.00 K/uL Basophils # (Auto) 0.01 K/uL Recent Anticoagulant Meds * Wt-based UFH-IV from admission (12/28-12/30/16 * Transitioned to IV bivalirudin--d/c 12/30/16 @ 1600 (spoke with RN to d/c) * ASA 81mg po daily Assessment & Plan Regarding THERAPEUTIC IV-Argatroban: * D/C'd all heparin products earlier today. No thrombosis is noted at this time . * Heparin PF4 Antibody was positive (Heparin-PF4 Antibody has a 20% false positive response), MARCK pending * D/C'd iv bivalirudin 12/30/16 @ 1600 (spoke with RN to d/c effective immediately ) * bivalirudin has a short half-life (estimate ~35 mins for est GFR 30-60mL/min) . * Will hold all anticoagulation x 2 hours and then initiate low-dose IV Argatroban at 0.15mcg/kg/min (no bolus). * Await PLT improvement and MARCK results to determine HIT status Labs: Will order PTT ratio to be drawn 12/30/16 @ 2000 and adjust prn. Goal PTT ratio: 2.0-2.5 Ongoing Labs (P&T Approved): PTT ratio, AST/ALT, CBC, Scr We will continue to monitor this patient and make adjustments as needed. Thank you.
[2016-12-30] MEDS ORDERED: SODIUM CHLORIDE 0.9% IV SCH (18:00)
[2016-12-30] MEDS ORDERED: PHARMACY ARGATROBAN RATE CHANGE ONE ×2 (18:00→21:15)
[2016-12-30] MEDS ORDERED: ARGATROBAN IV SCH (18:00)
[2016-12-30 20:57] LABS: PARTIAL THROMBOPLASTIN RATIO 2.1
[2016-12-31] VITALS (11 sets, daily range): BP systolic 100–133; BP diastolic 64–86; PULSE 80–106; TEMP 36.5–37; O2SAT 92–98
[2016-12-31] MEDS: DILTIAZEM HCL 30 MG TAB PO SCH ×5 (00:01→22:54)
[2016-12-31 01:01] LABS: PARTIAL THROMBOPLASTIN RATIO 1.8
[2016-12-31] MEDS: ARGATROBAN IV SCH (01:27)
[2016-12-31] MEDS: SODIUM CHLORIDE 0.9% IV SCH (01:27)
[2016-12-31] MEDS ORDERED: PHARMACY ARGATROBAN RATE CHANGE ONE ×6 (01:30→23:00)
[2016-12-31] MEDS: IPRATROPIUM BROMIDE NEB SOLN 0.02% 2.5 ML VIAL INH SCH ×3 (02:02→19:03)
[2016-12-31] MEDS: LEVALBUTEROL 1.25MG/0.5ML NEB INH SCH ×3 (02:02→19:03)
[2016-12-31 07:43] LABS: PARTIAL THROMBOPLASTIN RATIO 2.2
[2016-12-31] MEDS: FLUCONAZOLE 100MG / NSS IV SCH (08:37)
[2016-12-31] MEDS: MULTIVITAMIN TAB PO SCH (08:38)
[2016-12-31] MEDS: CARVEDILOL 25 MG TAB PO SCH ×2 (08:39→20:30)
[2016-12-31] MEDS: ENALAPRIL MALEATE 10 MG TAB PO SCH (08:39)
[2016-12-31] MEDS: SIMVASTATIN 40 MG TAB PO SCH (08:39)
[2016-12-31] MEDS: ASPIRIN 81 MG ECTAB PO SCH (08:39)
[2016-12-31] MEDS: FERROUS SULFATE 325 MG TAB PO SCH (08:39)
[2016-12-31] MEDS: METHYLPREDNISOLONE IV 40 MG in SYRINGE 0 ML IV SCH ×2 (08:49→20:30)
[2016-12-31 09:38] LABS: PARTIAL THROMBOPLASTIN RATIO 2.1
[2016-12-31 10:05] LABS: HEMATOCRIT 34.9 % (37-47); MEAN CELL VOLUME 90.2 fL (80-100); MEAN CORPUSCULAR HEMOGLOBIN 29.2 pg (25-34); MEAN CORPUSCULAR HGB CONC 32.4 g/dl (32-36); RED BLOOD COUNT 3.87 M/uL (4.2-5.4); WHITE BLOOD COUNT 2.25 K/uL (4.8-10.8)
[2016-12-31] MEDS: VANCOMYCIN INJ 1,750 MG in SODIUM CHLORIDE 0.9% 500ML 500 ML IV SCH (10:07)
[2016-12-31 10:26] LABS: MEAN PLATELET VOLUME 10.7 fL (7.4-10.4); PLATELET COUNT 46 K/uL (130-400)
--- NOTE | 2016-12-31 12:29 | Medical Student: [facility] ---
Med Student Progress Note Date of Service Dec 31, 2016. Subjective Pt evaluation today including: conversation w/ patient Alissa feels ok today. She denies sweats, chills, n/v/d, constipation, palpitations, shortness of breath, mood changes, and chest pain. She did mention that the abnormal sensation in her throat has come back and she was wondering if we had received results from the throat culture. During my time talking to her, I asked if she had any weight loss since this sensation in her throat began, and she says she lost approx 12 lbs in the last 2 months, and this was not completely intentional. She describes that she was trying to eat healthier but not particularly trying to lose that much weight. She says she has been doing well with getting out of bed. Review of Systems Constitutional: No fever, No chills, No sweats, No weight loss, No weakness, No fatigue, No problem reported ENT: + sore throat (describes as a "funny feeling" ), No trouble swallowing Respiratory: + wheezing, No cough, No sputum, No shortness of breath, No dyspnea on exertion, No dyspnea at rest, No hemoptysis Cardiac: No chest pain, No orthopnea, No edema, No claudication, No palpitations Abdomen: No pain, No nausea, No vomiting, No diarrhea, No constipation, No problem reported Psychiatric: No depression symptoms, No anxiety, No insomnia Objective Vital Signs Date Time Temp Pulse Resp B/P (MAP) Pulse Ox O2 Delivery O2 Flow Rate FiO2 12/31/16 11:47 37.0 88 18 110/69 (83) 95 12/31/16 11:37 80 94 12/31/16 08:12 36.8 82 18 100/64 (76) 98 12/31/16 08:00 Room Air 12/31/16 07:54 87 20 96 Room Air 12/31/16 04:30 36.8 84 21 114/78 (90) 94 Room Air 12/31/16 04:00 Room Air 12/31/16 02:02 87 20 97 Room Air 12/31/16 00:00 36.6 92 22 133/76 (95) 95 Nasal Cannula 2.0 12/30/16 23:59 Room Air 12/30/16 20:00 97 Nasal Cannula 3.0 12/30/16 19:26 97 20 99 Nasal Cannula 3.0 12/30/16 19:07 36.3 101 22 113/73 (86) 95 Room Air 12/30/16 16:00 Nasal Cannula 2.0 12/30/16 14:56 38.6 80 32 127/70 (89) 98 Nasal Cannula 2.0 12/30/16 14:05 112 36 134/74 (94) 100 Nasal Cannula 3.0 12/30/16 13:19 98 26 92 Nasal Cannula 4.0 Physical Exam General Appearance: WD/WN, no apparent distress ENT: hearing grossly normal, pharynx normal Neck: supple, no adenopathy, no JVD, no carotid bruits, trachea midline, + thyroid abnormalities (enlarged right thyroid gland. Non-tender. Soft. No nodules) Respiratory/Chest: chest non-tender, lungs clear, no respiratory distress, no accessory muscle use, + wheezing (greater in upper lobes. Expiratory) Cardiovascular: regular rate, rhythm, no edema, no gallop, no JVD, no murmur Abdomen: normal bowel sounds, non tender, soft Extremities: non-tender, no pedal edema, no calf tenderness, normal capillary refill Neurologic/Psychiatric: alert, normal mood/affect, oriented x 3 Skin: normal color, warm/dry, no rash Laboratory Results Last 24 Hours Test 12/30/16 14:44 12/30/16 20:09 12/31/16 00:22 12/31/16 03:55 White Blood Count 3.18 K/uL Red Blood Count 3.84 M/uL Hemoglobin 11.3 g/dL Hematocrit 34.9 % Mean Corpuscular Volume 90.9 fL Mean Corpuscular Hemoglobin 29.4 pg Mean Corpuscular Hemoglobin Concent 32.4 g/dl Platelet Count 51 K/uL Mean Platelet Volume 11.6 fL Neutrophils (%) (Auto) 86.5 % Lymphocytes (%) (Auto) 6.3 % Monocytes (%) (Auto) 6.6 % Eosinophils (%) (Auto) 0.0 % Basophils (%) (Auto) 0.3 % Neutrophils # (Auto) 2.75 K/uL Lymphocytes # (Auto) 0.20 K/uL Monocytes # (Auto) 0.21 K/uL Eosinophils # (Auto) 0.00 K/uL Basophils # (Auto) 0.01 K/uL RDW Standard Deviation 49.6 fL RDW Coefficient of Variation 14.8 % Immature Granulocyte % (Auto) 0.3 % Immature Granulocyte # (Auto) 0.01 K/uL Ovalocytes 1+ Erythrocyte Sedimentation Rate 10 mm/hr Procalcitonin 5.21 ng/ml Activated Partial Thromboplast Time 54.4 SECONDS 45.5 SECONDS 51.3 SECONDS Partial Thromboplastin Ratio 2.1 1.8 2.0 Creatinine 1.00 mg/dl Est Creatinine Clear Calc Drug Dose 47.5 ml/min Estimated GFR () 59.1 Estimated GFR (Non- 51.0 Test 12/31/16 06:55 12/31/16 09:09 White Blood Count 2.25 K/uL Red Blood Count 3.87 M/uL Hemoglobin 11.3 g/dL Hematocrit 34.9 % Mean Corpuscular Volume 90.2 fL Mean Corpuscular Hemoglobin 29.2 pg Mean Corpuscular Hemoglobin Concent 32.4 g/dl RDW Standard Deviation 48.6 fL RDW Coefficient of Variation 14.7 % Platelet Count 46 K/uL Mean Platelet Volume 10.7 fL Activated Partial Thromboplast Time 56.4 SECONDS 55.8 SECONDS Partial Thromboplastin Ratio 2.2 2.1 Assessment and Plan Assessment and Plan: Alissa is an 86 yo female who presented to he ER with chest pain, shortness of breath, palpitations, and nausea and an elevated Troponin. Since admission she has had fevers off and on and we have been treating with various antibiotics. However, yesterday we d/c'd the cephalosporins and it appears her fever has resolved. Upon talking to her and reviewing her history, she had a hospitalization in the past for hypothyroidism and has been treated with levothyroxine. We have been holding this med since admission and her tachycardia has improved. In addition, the enlarged gland on physical makes me wonder if there is a thyroid etiology as a cause of her palpitations, SOB, and troponin elevation. Palpitations, SOB, chest pain in the setting of Afib: - May have been due to medication side effect of Synthroid 150 mcg - Tachycardia has resolved - Asymptomatic - BP is within normal limits - Continue to monitor vitals - Continue with Argatroban anticoagulation, Diltiazem, Lisinopril, and Carvedilol. Metoprolol PRN. - Remain on telemetry Fever: - No fever since about 3pm yesterday (12/30) - Recently stopped cephalosporin medications - Asymptomatic today - Possibly resolved - May have been viral etiology - Cultures all negative - Continue to monitor for fever - Consider d/c'ing antibiotics Anemia, leukopenia, thrombocytopenia: - I wonder if this may be related to iatrogenic hyperthyroidism - Values have worsened since admission - Asymptomatic - She mentioned she thinks she had a bone marrow biopsy in the past. Will need to try to find this information. - Check T4 and T3 - Repeat CBC tomorrow - Continue Ferrous Sulfate and Multivitamins - If leukopenia continues to worsen, consider neutropenic contact precautions - If anemia continues to worsen, consider transfusion - If thrombocytopenia worsens, consider transfusion Hyperlipidemia: - Continue Simvastatin Continued [facility] stay due to: multiple IV medications needed Discharge planning: home
--- NOTE | 2016-12-31 13:05 | Progress Note ---
Subjective Date of Service: Dec 31, 2016. Subjective Pt evaluation today including: conversation w/ patient, physical exam, lab review, review of inpatient medication list Pain: no pain PO Intake: adequate Voiding: no voiding problems breathing much improved today, no wheezing, no distress, responding well to steroids and nebulizers no fever since yesterday afternoon, ESR normal, procalcitonin slightly elevated no growth on any culture patient participating in therapy, feeling stronger, eating well reviewed tele, HR <100 with the addition of Cardizem 30mg q6 Problem List Medical Problems: (1) Elevated troponin Status: Acute (2) Fever Status: Acute (3) Rapid atrial fibrillation Status: Acute Review of Systems Constitutional: + weakness, + fatigue Respiratory: + dyspnea on exertion Neurologic: + weakness, + balance problems All Other Systems: Reviewed and Negative Medications Current Inpatient Medications Medications (Trade) Dose Ordered Sig/Durga Route Start Time Stop Time Status Last Admin Dose Admin Potassium Chloride/Sodium Chloride 1,000 ml @ 125 mls/hr Q8H IV 12/28/16 21:45 01/27/17 21:44 Future Hold 12/29/16 09:17 125 MLS/HR Acetaminophen (Tylenol Tab) 650 mg Q4H PRN PO 12/28/16 19:00 01/27/17 18:59 12/30/16 15:01 650 MG Nitroglycerin (Nitrostat Tab) 0.4 mg UD PRN SL 12/28/16 19:00 01/27/17 18:59 12/29/16 16:05 0.4 MG Aspirin (Ecotrin Tab) 81 mg DAILY PO 12/29/16 09:00 01/28/17 08:59 12/31/16 08:39 81 MG Enalapril Maleate (Vasotec Tab) 20 mg DAILY PO 12/29/16 09:00 01/28/17 08:59 12/31/16 08:39 20 MG Ferrous Sulfate (Feosol Tab) 325 mg DAILY PO 12/29/16 09:00 01/28/17 08:59 12/31/16 08:39 325 MG Multivitamins (Multivitamin Tab) 1 tab DAILY PO 12/29/16 09:00 01/28/17 08:59 12/31/16 08:38 1 TAB Simvastatin (Zocor Tab) 40 mg DAILY PO 12/29/16 09:00 01/28/17 08:59 12/31/16 08:39 40 MG Metoprolol Tartrate (Lopressor Iv) 2.5 mg Q4H PRN IV 12/28/16 21:30 01/27/17 21:29 12/30/16 07:27 2.5 MG Morphine Sulfate (MoRPHine SULFATE INJ) 4 mg Q6 PRN IV 12/29/16 16:15 01/12/17 16:14 12/30/16 07:49 4 MG Carvedilol (Coreg Tab) 25 mg BID PO 12/29/16 21:00 01/28/17 20:59 12/31/16 08:39 25 MG Diltiazem HCl (Cardizem Tab) 30 mg Q6 PO 12/30/16 13:00 01/29/17 12:59 12/31/16 11:48 30 MG Levofloxacin 750 mg/Prmx 150 ml @ 100 mls/hr Q48H IV 12/30/16 10:00 01/09/17 09:59 12/30/16 10:29 100 MLS/HR Vancomycin HCl (Consult) 1 ea UD PRN N/A 12/30/16 10:00 01/29/17 09:59 Fluconazole/ Sodium Chloride 100 mg/Prmx 50 ml @ 100 mls/hr DAILY@0800 IV 12/31/16 08:00 01/10/17 07:59 12/31/16 08:37 100 MLS/HR Levofloxacin (Consult) 1 ea UD PRN N/A 12/30/16 10:15 01/29/17 10:14 Vancomycin HCl 1750 mg/Sodium Chloride 535 ml @ 200 mls/hr Q24H IV 12/31/16 10:00 01/08/17 23:59 12/31/16 10:07 200 MLS/HR Ioversol (Optiray 320) 125 ml UD PRN IV 12/30/16 13:15 01/03/17 13:14 Ipratropium [place] (Atrovent 0.02% 0.5MG/2.5ML Neb) 0.5 mg Q6R INH 12/30/16 15:00 01/29/17 14:59 12/31/16 07:52 0.5 MG Levalbuterol (Xopenex 1.25MG/ 0.5ML Neb) 1.25 mg Q6R INH 12/30/16 15:00 01/29/17 14:59 12/31/16 07:52 1.25 MG Argatroban (Consult) 1 ea UD PRN N/A 12/30/16 16:45 01/29/17 16:44 Argatroban 250 mg/ Sodium Chloride 252.5 ml @ 1.1 mls/hr Q24H IV 12/31/16 01:30 01/30/17 01:29 12/31/16 01:27 1.1 MLS/HR Methylprednisolone Sodium Succinate 40 mg/Syringe 0.64 ml @ 1.5 mls/min Q12 IV 12/31/16 09:00 01/30/17 08:59 12/31/16 08:49 1.5 MLS/MIN Objective Vital Signs Date Time Temp Pulse Resp B/P (MAP) Pulse Ox O2 Delivery O2 Flow Rate FiO2 12/31/16 12:00 Room Air 12/31/16 11:47 37.0 88 18 110/69 (83) 95 12/31/16 11:37 80 94 12/31/16 08:12 36.8 82 18 100/64 (76) 98 12/31/16 08:00 Room Air 12/31/16 07:54 87 20 96 Room Air 12/31/16 04:30 36.8 84 21 114/78 (90) 94 Room Air 12/31/16 04:00 Room Air 12/31/16 02:02 87 20 97 Room Air 12/31/16 00:00 36.6 92 22 133/76 (95) 95 Nasal Cannula 2.0 12/30/16 23:59 Room Air 12/30/16 20:00 97 Nasal Cannula 3.0 12/30/16 19:26 97 20 99 Nasal Cannula 3.0 12/30/16 19:07 36.3 101 22 113/73 (86) 95 Room Air 12/30/16 16:00 Nasal Cannula 2.0 12/30/16 14:56 38.6 80 32 127/70 (89) 98 Nasal Cannula 2.0 12/30/16 14:05 112 36 134/74 (94) 100 Nasal Cannula 3.0 12/30/16 13:19 98 26 92 Nasal Cannula 4.0 Physical Exam General Appearance: WD/WN, no apparent distress Eyes: normal inspection, EOMI, sclerae normal Neck: supple, no adenopathy, no JVD, trachea midline Respiratory/Chest: chest non-tender, lungs clear, normal breath sounds, no respiratory distress, no accessory muscle use Cardiovascular: regular rate, rhythm, no edema, no gallop, no JVD, no murmur Abdomen: normal bowel sounds, non tender, soft, no organomegaly Extremities: normal range of motion, non-tender, normal inspection, no pedal edema, no calf tenderness, pelvis stable 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, no motor/sensory deficits, alert, normal mood/affect, oriented x 3 Skin: normal color, warm/dry, no rash Laboratory Results Last 24 Hours Test 12/30/16 14:44 12/30/16 20:09 12/31/16 00:22 12/31/16 03:55 White Blood Count 3.18 K/uL Red Blood Count 3.84 M/uL Hemoglobin 11.3 g/dL Hematocrit 34.9 % Mean Corpuscular Volume 90.9 fL Mean Corpuscular Hemoglobin 29.4 pg Mean Corpuscular Hemoglobin Concent 32.4 g/dl Platelet Count 51 K/uL Mean Platelet Volume 11.6 fL Neutrophils (%) (Auto) 86.5 % Lymphocytes (%) (Auto) 6.3 % Monocytes (%) (Auto) 6.6 % Eosinophils (%) (Auto) 0.0 % Basophils (%) (Auto) 0.3 % Neutrophils # (Auto) 2.75 K/uL Lymphocytes # (Auto) 0.20 K/uL Monocytes # (Auto) 0.21 K/uL Eosinophils # (Auto) 0.00 K/uL Basophils # (Auto) 0.01 K/uL RDW Standard Deviation 49.6 fL RDW Coefficient of Variation 14.8 % Immature Granulocyte % (Auto) 0.3 % Immature Granulocyte # (Auto) 0.01 K/uL Ovalocytes 1+ Erythrocyte Sedimentation Rate 10 mm/hr Procalcitonin 5.21 ng/ml Activated Partial Thromboplast Time 54.4 SECONDS 45.5 SECONDS 51.3 SECONDS Partial Thromboplastin Ratio 2.1 1.8 2.0 Creatinine 1.00 mg/dl Est Creatinine Clear Calc Drug Dose 47.5 ml/min Estimated GFR () 59.1 Estimated GFR (Non- 51.0 Test 12/31/16 06:55 12/31/16 09:09 White Blood Count 2.25 K/uL Red Blood Count 3.87 M/uL Hemoglobin 11.3 g/dL Hematocrit 34.9 % Mean Corpuscular Volume 90.2 fL Mean Corpuscular Hemoglobin 29.2 pg Mean Corpuscular Hemoglobin Concent 32.4 g/dl RDW Standard Deviation 48.6 fL RDW Coefficient of Variation 14.7 % Platelet Count 46 K/uL Mean Platelet Volume 10.7 fL Activated Partial Thromboplast Time 56.4 SECONDS 55.8 SECONDS Partial Thromboplastin Ratio 2.2 2.1 Assessment and Plan 86-year-old white female admitted with atrial fibrillation with RVR and fever, possible right sided pyelonephritis on CT scan but UA and urine culture not suggesting infection - Paroxysmal afib, now with persistent afib and RVR rates better controlled with Cardizem 30mg q6 in addition to Coreg 25mg BID on Argatroban for anticoagulation given the positive HIT screen and thrombocytopenia echo ordered cardiology following - Persistent fevers, unclear etiology conflicting results with right kidney stranding and possible pyelonephritis but only 1-5 WBC on UA and no growth on urine culture CXR on 12/29 with no signs of infiltrate, no infiltrate seen on CT chest no growth on any culture no fevers since antibiotics changed yesterday, could it have been drug fever? 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, awaiting final blood work use Argatroban for time being no bleeding or bruising, no signs of VTE - Acute respiratory failure with hypoxia: resolved, breathing room air today, was due to COPD exacerbation - COPD exacerbation: responded well to Solu Medrol and nebulizers continue Solu Medrol 40mg q12 today, plan for Prednisone tomorrow AM - Demand ischemia: mild troponin bump, no chest pain, continue Aspirin and statin follow up echo results - Hypothyroidism: TSH low at 0.2 so her dose of Synthroid 150mcg was likely too high continue to hold Synthroid and then resume at lower dose on discharge can repeat TSH in 6 weeks outpatient Hyperlipidemia--continue simvastatin 40 mg by mouth daily. DVT prophylaxis - Argatroban due to HIT PT OT evaluation and treatment ordered full code keep on tele today, transfer tomorrow and likely change to long acting Diltiazem Continued [facility] stay due to: multiple IV medications needed Discharge planning: home
--- NOTE | 2016-12-31 15:07 | Progress Note ---
Subjective Date of Service: Dec 31, 2016. Subjective pt undergoing echo on my exam, still with fevers overnight. tmax 38.6, currently afebrile. no pain, tolerating abx. all cultures negative to date. continues with low wbc, lfts slightly elevated yesterday. was confused. no overnight events. remains on abx, fluconazole for yeast in urine but ua negative. on steroids as well. remaining negative. Problem List Medical Problems: (1) Elevated troponin Status: Acute (2) Fever Status: Acute (3) Rapid atrial fibrillation Status: Acute Objective Vital Signs Date Time Temp Pulse Resp B/P (MAP) Pulse Ox O2 Delivery O2 Flow Rate FiO2 12/31/16 14:18 90 18 95 Room Air 12/31/16 12:00 Room Air 12/31/16 11:47 37.0 88 18 110/69 (83) 95 12/31/16 11:37 80 94 12/31/16 08:12 36.8 82 18 100/64 (76) 98 12/31/16 08:00 Room Air 12/31/16 07:54 87 20 96 Room Air 12/31/16 04:30 36.8 84 21 114/78 (90) 94 Room Air 12/31/16 04:00 Room Air 12/31/16 02:02 87 20 97 Room Air 12/31/16 00:00 36.6 92 22 133/76 (95) 95 Nasal Cannula 2.0 12/30/16 23:59 Room Air 12/30/16 20:00 97 Nasal Cannula 3.0 12/30/16 19:26 97 20 99 Nasal Cannula 3.0 12/30/16 19:07 36.3 101 22 113/73 (86) 95 Room Air 12/30/16 16:00 Nasal Cannula 2.0 Physical Exam General Appearance: WD/WN Neck: supple Respiratory/Chest: normal breath sounds, no respiratory distress Cardiovascular: regular rate, rhythm Neurologic/Psychiatric: alert Skin: normal color Laboratory Results Item Value Date Time Blood Culture - Preliminary Resulted 12/28/16 1631 Blood NO GROWTH TO DATE. Blood Culture - Preliminary Resulted 12/28/16 1646 Blood NO GROWTH TO DATE. Urine Culture - Preliminary Resulted 12/28/16 1740 Urine,Catheterized NO GROWTH - LESS THAN 1,000 COLONIES/... Urine Culture - Final Complete 12/28/16 1740 Urine,Catheterized NO GROWTH - LESS THAN 1,000 COLONIES/ML Blood Culture - Preliminary Resulted 12/30/16 0225 Blood NO GROWTH TO DATE. Blood Culture - Preliminary Resulted 12/30/16 0242 Blood NO GROWTH TO DATE. Last 24 Hours Test 12/30/16 20:09 12/31/16 00:22 12/31/16 03:55 12/31/16 06:55 Activated Partial Thromboplast Time 54.4 SECONDS 45.5 SECONDS 51.3 SECONDS 56.4 SECONDS Partial Thromboplastin Ratio 2.1 1.8 2.0 2.2 Creatinine 1.00 mg/dl Est Creatinine Clear Calc Drug Dose 47.5 ml/min Estimated GFR () 59.1 Estimated GFR (Non- 51.0 White Blood Count 2.25 K/uL Red Blood Count 3.87 M/uL Hemoglobin 11.3 g/dL Hematocrit 34.9 % Mean Corpuscular Volume 90.2 fL Mean Corpuscular Hemoglobin 29.2 pg Mean Corpuscular Hemoglobin Concent 32.4 g/dl RDW Standard Deviation 48.6 fL RDW Coefficient of Variation 14.7 % Platelet Count 46 K/uL Mean Platelet Volume 10.7 fL Test 12/31/16 09:09 12/31/16 14:57 12/31/16 14:58 Activated Partial Thromboplast Time 55.8 SECONDS Partial Thromboplastin Ratio 2.1 Assessment and Plan (1) Fever Assessment & Plan: ? tick borne etiology with elevated lfts (mild) and pancytopenia. will check lye/anaplasma serologies for completeness. no clear history of tick bite. continue abx for now, add doxy emperically, can stop fluconazole. follow cultures. Continued [facility] stay due to: multiple IV medications needed Discharge planning: home
[2016-12-31] MEDS: DOXYCYCLINE HYCLATE 100 MG CAP PO SCH ×2 (16:45→22:54)
[2016-12-31 17:13] LABS: LYME DISEASE AB IGG NEG (NEG)
[2016-12-31 17:16] LABS: LYME DISEASE AB IGM NEG (NEG)
--- NOTE | 2016-12-31 18:16 | ECHOCARDIOGRAM REPORT ---
*NOTICE TO RECEIVING LIBERTARIAN AGENCY This information is strictly Confidential and protected under [place] law. [place] law prohibits you from making any further disclosure of this information unless further disclosure is expressly permitted by the written consent of the person to whom it pertains or is authorized by law. A general authorization for the release of medical or other information is not sufficient for this purpose. Hospital accepts no responsibility if the information is made available to any other person, INCLUDING THE PATIENT. Interpretation Summary * Normal left ventricular systolic function. * Mild concentric left ventricular hypertrophy. * Mild right ventricular dilatation. * Mild right ventricular systolic dysfunction. * Mild biatrial dilatation. * Mild pulmonic regurgitation. * Moderate mitral regurgitation. * Moderate to severe tricuspid regurgitation. * Mildly elevated estimated right ventricular systolic pressure. * -- Conclusions -- * Aortic valve sclerosis mild, without significant aortic valvular stenosis. Procedure Details * A complete two-dimensional transthoracic echocardiogram was performed (2D, M-mode, Doppler and color flow Doppler). Left Ventricle * The left ventricle is normal in size. * There is mild concentric left ventricular hypertrophy. * Ejection Fraction = 60-65%. * Left ventricular systolic function is normal. * The left ventricular wall motion is normal. Right Ventricle * The right ventricle is mildly dilated. * The right ventricular systolic function is mildly reduced. * The right ventricular systolic function is reduced as assessed by tricuspid annular plane systolic excursion (TAPSE) (TAPSE <1.6 cm). Atria * The left atrium is mildly dilated. * The right atrium is mildly dilated. * No ASD detected; PFO is not assessed. Mitral Valve * There is mild mitral annular calcification. * There is no mitral valve stenosis. * There is moderate mitral regurgitation. Tricuspid Valve * The tricuspid valve is normal. * There is no tricuspid stenosis. * There is moderate to severe tricuspid regurgitation. * Right ventricular systolic pressure is elevated at 30-40mmHg. Aortic Valve * The aortic valve is trileaflet. * The aortic valve opens well. * Aortic valve sclerosis mild, without significant aortic valvular stenosis. * Aortic stenosis is absent. * No aortic regurgitation is present. Pulmonic Valve * The pulmonic valve is not well visualized. * The pulmonary valve is inadequately visualized, but the Doppler data is adequate for interpretation. * There is no pulmonic valvular stenosis. * Mild pulmonic valvular regurgitation. Great Vessels * The aortic root is normal size. Pericardium/Pleural * There is no pericardial effusion. Great Vessels * Normal inferior vena cava diameter and respiratory variation suggests normal central venous pressure. MMode 2D Measurements and Calculations IVSd 1.4 cm IVSs 1.4 cm LVIDd 4.4 cm LVIDs 3.1 cm LVPWd 1.4 cm LVPWs 1.4 cm IVS/LVPW 1.0 FS 29.6 % EDV(Teich) 87.6 ml ESV(Teich) 37.8 ml EF(Teich) 56.8 % EDV(cubed) 85.0 ml ESV(cubed) 29.7 ml EF(cubed) 65.1 % % IVS thick 4.9 % % LVPW thick 1.5 % LV mass(C)d 228.9 grams LV mass(C)dI 111.8 grams/m\S\2 LV mass(C)s 146.4 grams LV mass(C)sI 71.5 grams/m\S\2 CO(Teich) 4.4 l/min CI(Teich) 2.2 l/min/m\S\2 SV(Teich) 49.8 ml SI(Teich) 24.3 ml/m\S\2 CO(cubed) 4.9 l/min CI(cubed) 2.4 l/min/m\S\2 SV(cubed) 55.4 ml SI(cubed) 27.0 ml/m\S\2 Ao root diam 3.7 cm Ao root area 10.9 cm\S\2 ACS 1.8 cm LA dimension 4.5 cm asc Aorta Diam 3.7 cm LA/Ao 1.2 LVAd ap4 28.3 cm\S\2 LVLd ap4 8.3 cm EDV(MOD-sp4) 80.0 ml LVAs ap4 15.9 cm\S\2 LVLs ap4 6.8 cm ESV(MOD-sp4) 31.0 ml EF(MOD-sp4) 61.3 % LVAd ap2 35.4 cm\S\2 LVLd ap2 9.0 cm EDV(MOD-sp2) 116.0 ml LVAs ap2 19.5 cm\S\2 LVLs ap2 7.4 cm ESV(MOD-sp2) 42.0 ml EF(MOD-sp2) 63.8 % CO(MOD-sp4) 4.4 l/min CI(MOD-sp4) 2.1 l/min/m\S\2 SV(MOD-sp4) 49.0 ml SI(MOD-sp4) 23.9 ml/m\S\2 CO(MOD-sp2) 6.6 l/min CI(MOD-sp2) 3.2 l/min/m\S\2 SV(MOD-sp2) 74.0 ml SI(MOD-sp2) 36.1 ml/m\S\2 Doppler Measurements and Calculations MV E max moises 131.6 cm/sec MV P1/2t max moises 140.6 cm/sec MV P1/2t 40.6 msec MVA(P1/2t) 5.4 cm\S\2 MV dec slope 1014.9 cm/sec\S\2 MV dec time 0.17 sec Ao V2 max 98.8 cm/sec Ao max PG 3.9 mmHg Ao max PG (full) 2.5 mmHg LV V1 max PG 1.4 mmHg LV V1 max 59.8 cm/sec PA V2 max 75.1 cm/sec PA max PG 2.3 mmHg TR max moises 280.1 cm/sec
[2016-12-31 21:27] LABS: PARTIAL THROMBOPLASTIN RATIO 1.8
[2017-01-01] VITALS (12 sets, daily range): BP systolic 131–160; BP diastolic 63–83; PULSE 69–119; TEMP 36.4–37; O2SAT 92–96
[2017-01-01 01:04] LABS: PARTIAL THROMBOPLASTIN RATIO 1.8
[2017-01-01] MEDS: ARGATROBAN IV SCH ×4 (01:40→20:34)
[2017-01-01] MEDS: SODIUM CHLORIDE 0.9% IV SCH ×4 (01:40→20:34)
[2017-01-01] MEDS ORDERED: PHARMACY ARGATROBAN RATE CHANGE ONE ×5 (01:45→20:10)
[2017-01-01] MEDS: LEVALBUTEROL 1.25MG/0.5ML NEB INH SCH ×4 (02:15→18:57)
[2017-01-01] MEDS: IPRATROPIUM BROMIDE NEB SOLN 0.02% 2.5 ML VIAL INH SCH ×4 (02:15→18:56)
[2017-01-01] MEDS: DILTIAZEM HCL 30 MG TAB PO SCH (05:22)
[2017-01-01 06:35] LABS: HEMATOCRIT 34.6 % (37-47); MEAN CELL VOLUME 88.9 fL (80-100); MEAN CORPUSCULAR HEMOGLOBIN 28.3 pg (25-34); MEAN CORPUSCULAR HGB CONC 31.8 g/dl (32-36); RED BLOOD COUNT 3.89 M/uL (4.2-5.4); WHITE BLOOD COUNT 4.04 K/uL (4.8-10.8)
[2017-01-01 06:37] LABS: MEAN PLATELET VOLUME 11.9 fL (7.4-10.4); PLATELET COUNT 62 K/uL (130-400)
[2017-01-01 06:51] LABS: PARTIAL THROMBOPLASTIN RATIO 1.8
[2017-01-01 07:13] LABS: CREATININE 0.99 mg/dl (0.60-1.20)
[2017-01-01] MEDS: SIMVASTATIN 40 MG TAB PO SCH (07:41)
[2017-01-01] MEDS: METHYLPREDNISOLONE IV 40 MG in SYRINGE 0 ML IV SCH (07:41)
[2017-01-01] MEDS: DOXYCYCLINE HYCLATE 100 MG CAP PO SCH ×2 (07:41→20:28)
[2017-01-01] MEDS: MULTIVITAMIN TAB PO SCH (07:42)
[2017-01-01] MEDS: ASPIRIN 81 MG ECTAB PO SCH (07:42)
[2017-01-01] MEDS: FERROUS SULFATE 325 MG TAB PO SCH (07:42)
[2017-01-01] MEDS: ENALAPRIL MALEATE 10 MG TAB PO SCH (07:42)
[2017-01-01] MEDS: CARVEDILOL 25 MG TAB PO SCH ×2 (07:43→20:27)
[2017-01-01] MEDS: FLUCONAZOLE 100MG / NSS IV SCH (07:43)
[2017-01-01 08:36] LABS: BASO % 1.5 %; BASO ABS # 0.06 K/uL (0-0.2); COMPLETE YES; ECHINOCYTES 2+; GIANT PLATELETS 1+; IG% 0.2 %; LYMPH % 14.1 %; LYMPH ABS # 0.57 K/uL (1.2-3.4); MONO % 12.4 %; NEUT % 71.8 %
[2017-01-01] MEDS: LEVOFLOXACIN / D5W 750 MG in PREMIXED IN D5W 150 ML IV SCH (10:09)
--- NOTE | 2017-01-01 10:31 | Progress Note ---
Subjective Date of Service: Jan 01, 2017. Subjective Pt evaluation today including: conversation w/ patient, physical exam, chart review, lab review pt seen in followup, significantly better today. No f/c overnight. no cp, cough , sob, wheeze, n/v/d/abd pain but poor po intake, no gu symptoms. 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 Doxy added yesterday, tick serologies ordered due to fever, negative culture, elevated AST and pancytopenia. Lyme screen negative. Anaplasma pending. LFTS better today, pancytopenia improving as well. Remains on multiple abx, tolerating well. States she does receive amox prior to dental cleaning, last dose was one month ago. Had echo yesterday, no veg. 12/28,12/30 blood culture negative, urine culture negative. no flank pain. All remaining ros reviewed and are negative. Problem List Medical Problems: (1) Elevated troponin Status: Acute (2) Fever Status: Acute (3) Rapid atrial fibrillation Status: Acute Objective Vital Signs Date Time Temp Pulse Resp B/P (MAP) Pulse Ox O2 Delivery O2 Flow Rate FiO2 01/01/17 08:00 Room Air 01/01/17 07:38 36.8 69 16 131/63 (85) 96 01/01/17 07:32 82 18 92 Room Air 01/01/17 04:00 Room Air 01/01/17 03:47 36.8 93 18 135/74 (94) 95 Room Air 01/01/17 02:15 88 18 95 Room Air 01/01/17 00:00 36.8 87 18 145/83 (103) 96 Room Air 12/31/16 23:59 Room Air 12/31/16 20:00 Room Air 12/31/16 19:34 36.7 106 18 132/79 (96) 92 Room Air 12/31/16 19:03 90 18 95 Room Air 12/31/16 16:00 Room Air 12/31/16 15:36 36.5 81 20 118/77 (91) 95 Room Air 12/31/16 14:18 90 18 95 Room Air 12/31/16 12:00 Room Air 12/31/16 11:47 37.0 88 18 110/69 (83) 95 12/31/16 11:37 80 94 Physical Exam General Appearance: WD/WN, no apparent distress Eyes: normal inspection, EOMI Neck: supple Respiratory/Chest: lungs clear, normal breath sounds, no respiratory distress Cardiovascular: regular rate, rhythm, no edema Abdomen: non tender, soft Extremities: non-tender, normal inspection, no pedal edema Neurologic/Psychiatric: alert, oriented x 3 Skin: normal color, warm/dry, no rash Laboratory Results Item Value Date Time Blood Culture - Preliminary Resulted 12/28/16 1631 Blood NO GROWTH TO DATE. Blood Culture - Preliminary Resulted 12/28/16 1646 Blood NO GROWTH TO DATE. Urine Culture - Preliminary Resulted 12/28/16 1740 Urine,Catheterized NO GROWTH - LESS THAN 1,000 COLONIES/... Urine Culture - Final Complete 12/28/16 1740 Urine,Catheterized NO GROWTH - LESS THAN 1,000 COLONIES/ML Blood Culture - Preliminary Resulted 12/30/16 0225 Blood NO GROWTH TO DATE. Blood Culture - Preliminary Resulted 12/30/16 0242 Blood NO GROWTH TO DATE. Last 24 Hours Test 12/31/16 14:58 12/31/16 15:16 12/31/16 21:02 01/01/17 00:34 Activated Partial Thromboplast Time 52.6 SECONDS 46.4 SECONDS 46.0 SECONDS Partial Thromboplastin Ratio 2.0 1.8 1.8 Lyme Disease IgG Antibody NEG Lyme Disease IgM Antibody NEG Test 01/01/17 06:20 White Blood Count 4.04 K/uL Red Blood Count 3.89 M/uL Hemoglobin 11.0 g/dL Hematocrit 34.6 % Mean Corpuscular Volume 88.9 fL Mean Corpuscular Hemoglobin 28.3 pg Mean Corpuscular Hemoglobin Concent 31.8 g/dl Platelet Count 62 K/uL Mean Platelet Volume 11.9 fL Neutrophils (%) (Auto) 71.8 % Lymphocytes (%) (Auto) 14.1 % Monocytes (%) (Auto) 12.4 % Eosinophils (%) (Auto) 0.0 % Basophils (%) (Auto) 1.5 % Neutrophils # (Auto) 2.90 K/uL Lymphocytes # (Auto) 0.57 K/uL Monocytes # (Auto) 0.50 K/uL Eosinophils # (Auto) 0.00 K/uL Basophils # (Auto) 0.06 K/uL RDW Standard Deviation 48.0 fL RDW Coefficient of Variation 14.7 % Immature Granulocyte % (Auto) 0.2 % Immature Granulocyte # (Auto) 0.01 K/uL Giant Platelets 1+ Echinocytes 2+ Activated Partial Thromboplast Time 47.8 SECONDS Partial Thromboplastin Ratio 1.8 Creatinine 0.99 mg/dl Est Creatinine Clear Calc Drug Dose 48.0 ml/min Estimated GFR () 59.8 Estimated GFR (Non- 51.6 Total Bilirubin 0.6 mg/dl Direct Bilirubin 0.3 mg/dl Aspartate Amino Transf (AST/SGOT) 49 U/L Alanine Aminotransferase (ALT/SGPT) 57 U/L Alkaline Phosphatase 68 U/L Total Protein 6.1 gm/dl Albumin 2.6 gm/dl Assessment and Plan (1) Fever Assessment & Plan: cultures negative, will stop fluconazole today, if cultures remain negative and she is afebrile, will likely stop vanco and levaquin tomorrow. will continue emperic doxy for ? tick borne illness, counts improved today. doubt one time dose amox one month ago is affecting culture results. will continue to follow. Continued [facility] stay due to: multiple IV medications needed Discharge planning: home
[2017-01-01] MEDS: VANCOMYCIN INJ 1,750 MG in SODIUM CHLORIDE 0.9% 500ML 500 ML IV SCH (10:55)
[2017-01-01 13:47] LABS: PARTIAL THROMBOPLASTIN RATIO 1.9
--- NOTE | 2017-01-01 14:02 | Medical Student: [facility] ---
Med Student Progress Note Date of Service Jan 01, 2017. Subjective Pt evaluation today including: conversation w/ patient, physical exam Alissa is feeling well today. She had some questions today. She has been going to the dentist every 3 months for cleaning and she has been given antibiotics each time, she wanted to know if she should be receiving antibiotics this often or not. I told her to mention this to the Infectious Disease member when they visit her, and she did. Her next question was why she has not been feeling her tachycardia, myself and Dr. Villa explained that not everyone feels the tachycardia episodes. Her last question was why is she continuing to get more short of breath over the past year or two. I explained there are likely a number of factors, these can include deconditioning, COPD, cardiac problems, anemia, and many other causes. I explained that this should be followed more thoroughly on an outpatient basis. Otherwise, she feels well today and denies palpitations, fevers, chills, night sweats, n/v/d, constipation, confusion, dysphagia, and hoarseness of voice. Review of Systems Constitutional: No fever, No chills, No sweats, No weight loss, No weakness, No fatigue, No problem reported ENT: No sore throat, No dental problems, No trouble swallowing, No problem reported Respiratory: + wheezing, + shortness of breath, No cough, No sputum, No dyspnea on exertion, No dyspnea at rest, No hemoptysis Cardiac: No chest pain, No orthopnea, No PND, No edema, No claudication, No palpitations, No problem reported Abdomen: No pain, No nausea, No vomiting, No diarrhea, No constipation, No GI bleeding, No problem reported Female : + incontinence (Mentions she has had feelings of incomplete emptying of her bladder and some "dribbling" ), No dysuria, No urinary frequency , No hematuria Psychiatric: No anxiety, No insomnia Objective Vital Signs Date Time Temp Pulse Resp B/P (MAP) Pulse Ox O2 Delivery O2 Flow Rate FiO2 01/01/17 12:30 Room Air 01/01/17 11:39 36.8 69 16 96 01/01/17 08:00 Room Air 01/01/17 07:38 36.8 69 16 131/63 (85) 96 01/01/17 07:32 82 18 92 Room Air 01/01/17 04:00 Room Air 01/01/17 03:47 36.8 93 18 135/74 (94) 95 Room Air 01/01/17 02:15 88 18 95 Room Air 01/01/17 00:00 36.8 87 18 145/83 (103) 96 Room Air 12/31/16 23:59 Room Air 12/31/16 20:00 Room Air 12/31/16 19:34 36.7 106 18 132/79 (96) 92 Room Air 12/31/16 19:03 90 18 95 Room Air 12/31/16 16:00 Room Air 12/31/16 15:36 36.5 81 20 118/77 (91) 95 Room Air 12/31/16 14:18 90 18 95 Room Air Physical Exam General Appearance: WD/WN, no apparent distress ENT: hearing grossly normal, pharynx normal Neck: supple, no adenopathy, no JVD, no carotid bruits, trachea midline, + thyroid abnormalities (Right lobe enlargement, soft, non-tender, no nodules. Approx the same as yesterday) Respiratory/Chest: chest non-tender, no respiratory distress, no accessory muscle use, + wheezing (Expiratory wheezes greater in upper lobes bilaterally. Improved from yesterday) Cardiovascular: no edema, no gallop, no JVD, no murmur, + irregularly irregular Abdomen: normal bowel sounds, non tender, soft, no pulsatile mass Extremities: non-tender, normal inspection, no pedal edema, no calf tenderness , normal capillary refill Neurologic/Psychiatric: alert, normal mood/affect, oriented x 3 Skin: normal color, warm/dry, no rash Laboratory Results Last 24 Hours Test 12/31/16 14:58 12/31/16 15:16 12/31/16 21:02 01/01/17 00:34 Activated Partial Thromboplast Time 52.6 SECONDS 46.4 SECONDS 46.0 SECONDS Partial Thromboplastin Ratio 2.0 1.8 1.8 Lyme Disease IgG Antibody NEG Lyme Disease IgM Antibody NEG Test 01/01/17 06:20 01/01/17 12:58 White Blood Count 4.04 K/uL Red Blood Count 3.89 M/uL Hemoglobin 11.0 g/dL Hematocrit 34.6 % Mean Corpuscular Volume 88.9 fL Mean Corpuscular Hemoglobin 28.3 pg Mean Corpuscular Hemoglobin Concent 31.8 g/dl Platelet Count 62 K/uL Mean Platelet Volume 11.9 fL Neutrophils (%) (Auto) 71.8 % Lymphocytes (%) (Auto) 14.1 % Monocytes (%) (Auto) 12.4 % Eosinophils (%) (Auto) 0.0 % Basophils (%) (Auto) 1.5 % Neutrophils # (Auto) 2.90 K/uL Lymphocytes # (Auto) 0.57 K/uL Monocytes # (Auto) 0.50 K/uL Eosinophils # (Auto) 0.00 K/uL Basophils # (Auto) 0.06 K/uL RDW Standard Deviation 48.0 fL RDW Coefficient of Variation 14.7 % Immature Granulocyte % (Auto) 0.2 % Immature Granulocyte # (Auto) 0.01 K/uL Giant Platelets 1+ Echinocytes 2+ Activated Partial Thromboplast Time 47.8 SECONDS Partial Thromboplastin Ratio 1.8 Creatinine 0.99 mg/dl Est Creatinine Clear Calc Drug Dose 48.0 ml/min Estimated GFR () 59.8 Estimated GFR (Non- 51.6 Total Bilirubin 0.6 mg/dl Direct Bilirubin 0.3 mg/dl Aspartate Amino Transf (AST/SGOT) 49 U/L Alanine Aminotransferase (ALT/SGPT) 57 U/L Alkaline Phosphatase 68 U/L Total Protein 6.1 gm/dl Albumin 2.6 gm/dl Assessment and Plan Assessment and Plan: Alissa is an 86 yo female who presented to he ER with chest pain, shortness of breath, palpitations, and nausea and an elevated Troponin. Since admission she has had fevers off and on and we have been treating with various antibiotics. However, she has been afebrile for almost 48 hrs now. Her CBC has improved, notably WBC increased from 2.25 to 4.04 and Plt from 46 to 62. Cultures continue to show no growth. She underwent and echo yesterday that showed mild to moderate changes throughout, but no focal concerns. She continues to be on Vancomycin, Prednisone, Fluconazole, and Argatroban, She was started on Doxycycline by Infectious Disease for concerns of Lyme's disease in the setting of no culture growths and cytopenias and fever. Palpitations, SOB, chest pain in the setting of Afib: - May have been due to medication side effect of Synthroid 150 mcg - Tachycardia has resolved - Asymptomatic - BP is on higher end of normal - Continue to monitor vitals - Continue with Argatroban anticoagulation, Diltiazem, Lisinopril, and Carvedilol. Metoprolol PRN. - Remove from telemetry - Repeat CBC tomorrow - Consider discharge tomorrow or the day after if remains afebrile and CBC improves. Fever: - No fever for 47 hours - Stopped cephalosporin medications on 12/30 - Asymptomatic today - Likely resolved - May have been viral etiology - Cultures all negative - Continue to monitor for fever - D/C vancomycin, possibly d/c doxycycline but will defer to infectious disease on this decision Anemia, leukopenia, thrombocytopenia: - I wonder if this may be related to iatrogenic hyperthyroidism - Values improving - Asymptomatic - She mentioned she thinks she had a bone marrow biopsy in the past. Will need to try to find this information. - Check T4 and T3 - Repeat CBC tomorrow - Continue Ferrous Sulfate and Multivitamins - If leukopenia worsens, consider neutropenic contact precautions - If anemia worsens, consider transfusion - If thrombocytopenia worsens, consider transfusion Hyperlipidemia: - Continue Simvastatin Continued [facility] stay due to: multiple IV medications needed Discharge planning: home
--- NOTE | 2017-01-01 16:07 | Progress Note ---
Subjective Date of Service: Jan 01, 2017. Subjective Pt evaluation today including: conversation w/ patient, physical exam, lab review, conversation w/ home service consultant Pain: no pain PO Intake: adequate Voiding: no voiding problems breathing much better, no distress, no cough no fever for 48 hours now appreciate note from ID, considering tick borne illness received call from lab, smear showed possible anaplasmosis, definitive testing pending Lyme screen negative discussed rehab with patient, she agrees once medically stable Problem List Medical Problems: (1) Elevated troponin Status: Acute (2) Fever Status: Acute (3) Rapid atrial fibrillation Status: Acute Review of Systems Constitutional: + weakness, + fatigue Respiratory: + cough, + dyspnea on exertion All Other Systems: Reviewed and Negative Medications Current Inpatient Medications Medications (Trade) Dose Ordered Sig/Durga Route Start Time Stop Time Status Last Admin Dose Admin Acetaminophen (Tylenol Tab) 650 mg Q4H PRN PO 12/28/16 19:00 01/27/17 18:59 12/30/16 15:01 650 MG Nitroglycerin (Nitrostat Tab) 0.4 mg UD PRN SL 12/28/16 19:00 01/27/17 18:59 12/29/16 16:05 0.4 MG Aspirin (Ecotrin Tab) 81 mg DAILY PO 12/29/16 09:00 01/28/17 08:59 01/01/17 07:42 81 MG Enalapril Maleate (Vasotec Tab) 20 mg DAILY PO 12/29/16 09:00 01/28/17 08:59 01/01/17 07:42 20 MG Ferrous Sulfate (Feosol Tab) 325 mg DAILY PO 12/29/16 09:00 01/28/17 08:59 01/01/17 07:42 325 MG Multivitamins (Multivitamin Tab) 1 tab DAILY PO 12/29/16 09:00 01/28/17 08:59 01/01/17 07:42 1 TAB Simvastatin (Zocor Tab) 40 mg DAILY PO 12/29/16 09:00 01/28/17 08:59 01/01/17 07:41 40 MG Carvedilol (Coreg Tab) 25 mg BID PO 12/29/16 21:00 01/28/17 20:59 01/01/17 07:43 25 MG Levofloxacin 750 mg/Prmx 150 ml @ 100 mls/hr Q48H IV 12/30/16 10:00 01/09/17 09:59 01/01/17 10:09 100 MLS/HR Vancomycin HCl (Consult) 1 ea UD PRN N/A 12/30/16 10:00 01/29/17 09:59 Levofloxacin (Consult) 1 ea UD PRN N/A 12/30/16 10:15 01/29/17 10:14 Vancomycin HCl 1750 mg/Sodium Chloride 535 ml @ 200 mls/hr Q24H IV 12/31/16 10:00 01/08/17 23:59 01/01/17 10:55 200 MLS/HR Ioversol (Optiray 320) 125 ml UD PRN IV 12/30/16 13:15 01/03/17 13:14 Ipratropium [place] (Atrovent 0.02% 0.5MG/2.5ML Neb) 0.5 mg Q6R INH 12/30/16 15:00 01/29/17 14:59 01/01/17 07:32 0.5 MG Levalbuterol (Xopenex 1.25MG/ 0.5ML Neb) 1.25 mg Q6R INH 12/30/16 15:00 01/29/17 14:59 01/01/17 07:32 1.25 MG Argatroban (Consult) 1 ea UD PRN N/A 12/30/16 16:45 01/29/17 16:44 Argatroban 250 mg/ Sodium Chloride 252.5 ml @ 2.5 mls/hr Q24H IV 12/31/16 01:30 01/30/17 01:29 01/01/17 14:05 2.5 MLS/HR Doxycycline Hyclate (Vibramycin Cap) 100 mg BID PO 12/31/16 15:30 01/02/17 15:29 01/01/17 07:41 100 MG Prednisone (PredniSONE TAB) 40 mg QAM PO 01/01/17 09:00 01/31/17 08:59 Objective Vital Signs Date Time Temp Pulse Resp B/P (MAP) Pulse Ox O2 Delivery O2 Flow Rate FiO2 01/01/17 15:49 36.4 104 18 157/76 (103) 95 Room Air 01/01/17 12:30 Room Air 01/01/17 11:39 36.8 69 16 96 01/01/17 08:00 Room Air 01/01/17 07:38 36.8 69 16 131/63 (85) 96 01/01/17 07:32 82 18 92 Room Air 01/01/17 04:00 Room Air 01/01/17 03:47 36.8 93 18 135/74 (94) 95 Room Air 01/01/17 02:15 88 18 95 Room Air 01/01/17 00:00 36.8 87 18 145/83 (103) 96 Room Air 12/31/16 23:59 Room Air 12/31/16 20:00 Room Air 12/31/16 19:34 36.7 106 18 132/79 (96) 92 Room Air 12/31/16 19:03 90 18 95 Room Air 12/31/16 16:00 Room Air Physical Exam General Appearance: WD/WN, no apparent distress Eyes: normal inspection, EOMI, sclerae normal ENT: normal ENT inspection, hearing grossly normal, pharynx normal Neck: supple, no adenopathy, no JVD, trachea midline Respiratory/Chest: chest non-tender, normal breath sounds, no respiratory distress, no accessory muscle use, + wheezing (end exhalation, bilaterally, very faint) Cardiovascular: no edema, no gallop, no JVD, no murmur, + tachycardia, + irregularly irregular Abdomen: normal bowel sounds, non tender, soft, no organomegaly Extremities: normal range of motion, non-tender, normal inspection, no pedal edema, no calf tenderness Neurologic/Psychiatric: 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-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 nml as tested, no motor/sensory deficits, alert, normal mood/affect, oriented x 3 Skin: normal color, warm/dry, no rash Laboratory Results Last 24 Hours Test 12/31/16 21:02 01/01/17 00:34 01/01/17 06:20 01/01/17 12:58 Activated Partial Thromboplast Time 46.4 SECONDS 46.0 SECONDS 47.8 SECONDS 48.9 SECONDS Partial Thromboplastin Ratio 1.8 1.8 1.8 1.9 White Blood Count 4.04 K/uL Red Blood Count 3.89 M/uL Hemoglobin 11.0 g/dL Hematocrit 34.6 % Mean Corpuscular Volume 88.9 fL Mean Corpuscular Hemoglobin 28.3 pg Mean Corpuscular Hemoglobin Concent 31.8 g/dl Platelet Count 62 K/uL Mean Platelet Volume 11.9 fL Neutrophils (%) (Auto) 71.8 % Lymphocytes (%) (Auto) 14.1 % Monocytes (%) (Auto) 12.4 % Eosinophils (%) (Auto) 0.0 % Basophils (%) (Auto) 1.5 % Neutrophils # (Auto) 2.90 K/uL Lymphocytes # (Auto) 0.57 K/uL Monocytes # (Auto) 0.50 K/uL Eosinophils # (Auto) 0.00 K/uL Basophils # (Auto) 0.06 K/uL RDW Standard Deviation 48.0 fL RDW Coefficient of Variation 14.7 % Immature Granulocyte % (Auto) 0.2 % Immature Granulocyte # (Auto) 0.01 K/uL Giant Platelets 1+ Echinocytes 2+ Creatinine 0.99 mg/dl Est Creatinine Clear Calc Drug Dose 48.0 ml/min Estimated GFR () 59.8 Estimated GFR (Non- 51.6 Total Bilirubin 0.6 mg/dl Direct Bilirubin 0.3 mg/dl Aspartate Amino Transf (AST/SGOT) 49 U/L Alanine Aminotransferase (ALT/SGPT) 57 U/L Alkaline Phosphatase 68 U/L Total Protein 6.1 gm/dl Albumin 2.6 gm/dl Test 01/01/17 14:52 Assessment and Plan 86-year-old white female admitted with atrial fibrillation with RVR and fever, possible right sided pyelonephritis on CT scan but UA and urine culture not suggesting infection - Paroxysmal afib, now with persistent afib and RVR rates better controlled with Cardizem 30mg q6 in addition to Coreg 25mg BID on Argatroban for anticoagulation given the positive HIT screen and thrombocytopenia echo ordered - normal cardiology following HR in 60's this AM so stopped Diltiazem to see response, rates in 100's in afternoon, will resume Cardizem 30mg plan for Cardizem 120mg qAM starting tomorrow safe to transfer off tele, not requiring any IV rate control - Persistent fevers, unclear etiology conflicting results with right kidney stranding and possible pyelonephritis but only 1-5 WBC on UA and no growth on urine culture CXR on 12/29 with no signs of infiltrate, no infiltrate seen on CT chest no growth on any culture no fevers for 48 hours appreciate ID note, fluconazole stopped, likely stop Vanco and Levaquin tomorrow possible tick borne illness, Lyme negative, but anaplasmosis seen on smear from 12/30, checking PCR on Doxy 100mg BID as prophylaxis final plan will be per ID - 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, still awaiting final blood work use Argatroban for time being no bleeding or bruising, no signs of VTE platelets 62 currently will need to use a novel anticoagulant on d/c - Acute respiratory failure with hypoxia: resolved, breathing room air today, was due to COPD exacerbation - COPD exacerbation: responded well to Solu Medrol and nebulizers Prednisone 40mg qAM starting today - Demand ischemia: mild troponin bump, no chest pain, continue Aspirin and statin follow up echo results - normal - Hypothyroidism: TSH low at 0.2 so her dose of Synthroid 150mcg was likely too high continue to hold Synthroid and then resume at lower dose on discharge, likely 100mcg daily with afib, would want TSH high end of normal can repeat TSH in 6 weeks outpatient Hyperlipidemia--continue simvastatin 40 mg by mouth daily. DVT prophylaxis - Argatroban due to HIT PT OT evaluation and treatment ordered full code transfer to medical floor today, follow up on final results of testing for HIT and anaplasmosis go to rehab on d/c Continued [facility] stay due to: multiple IV medications needed Discharge planning: home
[2017-01-01 17:32] LABS: UFH HIGH DOSE 100 IU/ML 0 % Release; UFH SEROTONIN RELEASING ASSAY Negative (Negative)
[2017-01-01] MEDS ORDERED: DILTIAZEM HCL 30 MG TAB PO SCH (20:00)
[2017-01-02] VITALS (10 sets, daily range): BP systolic 152–181; BP diastolic 77–101; PULSE 90–108; TEMP 36.3–36.6; O2SAT 91–94
[2017-01-02 00:45] LABS: PARTIAL THROMBOPLASTIN RATIO 1.9
[2017-01-02] MEDS: ARGATROBAN IV SCH (01:29)
[2017-01-02] MEDS: SODIUM CHLORIDE 0.9% IV SCH (01:29)
[2017-01-02] MEDS ORDERED: PHARMACY ARGATROBAN RATE CHANGE ONE ×3 (01:30→11:15)
[2017-01-02] MEDS: LEVALBUTEROL 1.25MG/0.5ML NEB INH SCH ×4 (02:07→19:44)
[2017-01-02] MEDS: IPRATROPIUM BROMIDE NEB SOLN 0.02% 2.5 ML VIAL INH SCH ×4 (02:07→19:44)
[2017-01-02 06:44] LABS: CREATININE 1.1 mg/dl (0.60-1.20)
[2017-01-02] MEDS: MULTIVITAMIN TAB PO SCH (08:12)
[2017-01-02] MEDS: ASPIRIN 81 MG ECTAB PO SCH (08:12)
[2017-01-02] MEDS: ENALAPRIL MALEATE 10 MG TAB PO SCH (08:13)
[2017-01-02] MEDS: SIMVASTATIN 40 MG TAB PO SCH (08:13)
[2017-01-02] MEDS: FERROUS SULFATE 325 MG TAB PO SCH (08:13)
[2017-01-02] MEDS: CARVEDILOL 25 MG TAB PO SCH ×2 (08:13→20:16)
[2017-01-02] MEDS: DOXYCYCLINE HYCLATE 100 MG CAP PO SCH (08:13)
[2017-01-02] MEDS ORDERED: DILTIAZEM HCL 120 MG CAPCR PO ONE (08:30)
[2017-01-02] MEDS ORDERED: VANCOMYCIN TROUGH SCH (09:30)
[2017-01-02] MEDS: RIVAROXABAN TAB 15 MG TAB PO SCH (14:19)
[2017-01-02 14:47] LABS: PARTIAL THROMBOPLASTIN RATIO 1.6
--- NOTE | 2017-01-02 15:00 | Progress Note ---
Subjective Date of Service: Jan 02, 2017. Subjective pt transferred, awake, talking, overall improved, no f/c. denies tick bite but smear + anaplasma, serology pending, afebrile. tolerating doxy, all other abx stopped. blood and urine culture negative. wbc/platelets improving. no overnight events, remaining negative. Problem List Medical Problems: (1) Elevated troponin Status: Acute (2) Fever Status: Acute (3) Rapid atrial fibrillation Status: Acute Objective Vital Signs Date Time Temp Pulse Resp B/P (MAP) Pulse Ox O2 Delivery O2 Flow Rate FiO2 01/02/17 14:51 36.3 106 20 160/77 (104) 91 01/02/17 14:23 104 16 93 Room Air 01/02/17 08:00 94 Room Air 01/02/17 07:29 36.6 102 20 152/94 (113) 94 01/02/17 07:11 102 16 94 Room Air 01/02/17 02:07 108 16 91 Room Air 01/02/17 00:00 Room Air 01/01/17 23:55 36.6 95 20 134/81 (98) 95 Room Air 01/01/17 20:20 36.6 119 18 160/81 (107) 96 Room Air 01/01/17 19:15 37.0 91 18 155/81 (105) 94 Room Air 01/01/17 18:57 83 16 95 Room Air 01/01/17 16:00 Room Air 01/01/17 15:59 88 18 96 Room Air 01/01/17 15:49 36.4 104 18 157/76 (103) 95 Room Air Physical Exam General Appearance: WD/WN, no apparent distress Eyes: normal inspection Neck: supple Respiratory/Chest: normal breath sounds, no respiratory distress Cardiovascular: no edema Extremities: no pedal edema Neurologic/Psychiatric: alert Skin: normal color Laboratory Results Item Value Date Time Blood Culture - Preliminary Resulted 12/30/16 0242 Blood NO GROWTH TO DATE. Urine Culture - Final Complete 12/28/16 1740 Urine,Catheterized NO GROWTH - LESS THAN 1,000 COLONIES/ML Blood Culture - Preliminary Resulted 12/30/16 0225 Blood NO GROWTH TO DATE. Blood Culture - Preliminary Resulted 12/28/16 1646 Blood NO GROWTH TO DATE. Blood Culture - Preliminary Resulted 12/28/16 1631 Blood NO GROWTH TO DATE. Last 24 Hours Test 01/01/17 16:06 01/01/17 19:05 01/02/17 00:11 01/02/17 05:18 Activated Partial Thromboplast Time 52.0 SECONDS 51.4 SECONDS 50.2 SECONDS 51.9 SECONDS Partial Thromboplastin Ratio 2.0 2.0 1.9 2.0 Creatinine 1.10 mg/dl Est Creatinine Clear Calc Drug Dose 43.2 ml/min Estimated GFR () 52.6 Estimated GFR (Non- 45.4 Test 01/02/17 10:02 01/02/17 14:26 Activated Partial Thromboplast Time 51.1 SECONDS 42.8 SECONDS Partial Thromboplastin Ratio 2.0 1.6 Assessment and Plan (1) Anaplasmosis Assessment & Plan: continue po doxy with food for 14 days total. all other abx stopped. all cultures negative, counts improving, afebrile. ok for d/c when medically stable. Continued [facility] stay due to: multiple IV medications needed Discharge planning: home
--- NOTE | 2017-01-02 16:27 | Progress Note ---
Subjective Date of Service: Jan 02, 2017. Subjective Pt evaluation today including: conversation w/ patient, physical exam, lab review, conversation w/ air quality consultant, review of inpatient medication list Pain: no pain PO Intake: adequate Voiding: no voiding problems patient feeling well, no dyspnea, no chest pain, no palpitations no fevers now for 2 days anaplasmosis on smear, treat with Doxy per ID note today reviewed HIT testing, negative, stop Argatroban and start Xarelto Problem List Medical Problems: (1) Elevated troponin Status: Acute (2) Fever Status: Acute (3) Rapid atrial fibrillation Status: Acute Review of Systems Constitutional: + weakness, + fatigue All Other Systems: Reviewed and Negative Medications Current Inpatient Medications Medications (Trade) Dose Ordered Sig/Durga Route Start Time Stop Time Status Last Admin Dose Admin Acetaminophen (Tylenol Tab) 650 mg Q4H PRN PO 12/28/16 19:00 01/27/17 18:59 12/30/16 15:01 650 MG Nitroglycerin (Nitrostat Tab) 0.4 mg UD PRN SL 12/28/16 19:00 01/27/17 18:59 12/29/16 16:05 0.4 MG Aspirin (Ecotrin Tab) 81 mg DAILY PO 12/29/16 09:00 01/28/17 08:59 01/02/17 08:12 81 MG Enalapril Maleate (Vasotec Tab) 20 mg DAILY PO 12/29/16 09:00 01/28/17 08:59 01/02/17 08:13 20 MG Ferrous Sulfate (Feosol Tab) 325 mg DAILY PO 12/29/16 09:00 01/28/17 08:59 01/02/17 08:13 325 MG Multivitamins (Multivitamin Tab) 1 tab DAILY PO 12/29/16 09:00 01/28/17 08:59 01/02/17 08:12 1 TAB Simvastatin (Zocor Tab) 40 mg DAILY PO 12/29/16 09:00 01/28/17 08:59 01/02/17 08:13 40 MG Carvedilol (Coreg Tab) 25 mg BID PO 12/29/16 21:00 01/28/17 20:59 01/02/17 08:13 25 MG Ioversol (Optiray 320) 125 ml UD PRN IV 12/30/16 13:15 01/03/17 13:14 Ipratropium [place] (Atrovent 0.02% 0.5MG/2.5ML Neb) 0.5 mg Q6R INH 12/30/16 15:00 01/29/17 14:59 01/02/17 14:12 0.5 MG Levalbuterol (Xopenex 1.25MG/ 0.5ML Neb) 1.25 mg Q6R INH 12/30/16 15:00 01/29/17 14:59 01/02/17 14:12 1.25 MG Prednisone (PredniSONE TAB) 40 mg QAM PO 01/01/17 09:00 01/31/17 08:59 01/02/17 08:12 40 MG Diltiazem HCl (Cardizem Cd Cap) 120 mg QAM PO 01/03/17 08:00 02/02/17 07:59 Rivaroxaban (Xarelto Tab) 15 mg DAILYBD PO 01/02/17 13:45 02/01/17 13:44 01/02/17 14:19 15 MG Objective Vital Signs Date Time Temp Pulse Resp B/P (MAP) Pulse Ox O2 Delivery O2 Flow Rate FiO2 01/02/17 15:02 100 92 01/02/17 14:51 36.3 106 20 160/77 (104) 91 01/02/17 14:23 104 16 93 Room Air 01/02/17 08:00 94 Room Air 01/02/17 07:29 36.6 102 20 152/94 (113) 94 01/02/17 07:11 102 16 94 Room Air 01/02/17 02:07 108 16 91 Room Air 01/02/17 00:00 Room Air 01/01/17 23:55 36.6 95 20 134/81 (98) 95 Room Air 01/01/17 20:20 36.6 119 18 160/81 (107) 96 Room Air 01/01/17 19:15 37.0 91 18 155/81 (105) 94 Room Air 01/01/17 18:57 83 16 95 Room Air Physical Exam General Appearance: WD/WN, no apparent distress Eyes: normal inspection, EOMI, sclerae normal ENT: normal ENT inspection, hearing grossly normal, pharynx normal Neck: supple, no adenopathy, no JVD, trachea midline Respiratory/Chest: chest non-tender, lungs clear, normal breath sounds, no respiratory distress, no accessory muscle use Cardiovascular: no edema, no gallop, no JVD, no murmur, + tachycardia, + irregularly irregular Abdomen: normal bowel sounds, non tender, soft, no organomegaly Extremities: normal range of motion, non-tender, normal inspection, no pedal edema, no calf tenderness, pelvis stable Neurologic/Psychiatric: dry house tender II-XII nml as tested, no motor/sensory deficits, alert, normal mood/affect, oriented x 3 Skin: normal color, warm/dry, no rash Laboratory Results Last 24 Hours Test 01/01/17 19:05 01/02/17 00:11 01/02/17 05:18 01/02/17 10:02 Activated Partial Thromboplast Time 51.4 SECONDS 50.2 SECONDS 51.9 SECONDS 51.1 SECONDS Partial Thromboplastin Ratio 2.0 1.9 2.0 2.0 Creatinine 1.10 mg/dl Est Creatinine Clear Calc Drug Dose 43.2 ml/min Estimated GFR () 52.6 Estimated GFR (Non- 45.4 Test 01/02/17 14:26 Activated Partial Thromboplast Time 42.8 SECONDS Partial Thromboplastin Ratio 1.6 Assessment and Plan 86-year-old white female admitted with atrial fibrillation with RVR and fever, possible right sided pyelonephritis on CT scan but UA and urine culture not suggesting infection - Paroxysmal afib, now with persistent afib and RVR rates better controlled with Cardizem 30mg q6 in addition to Coreg 25mg BID start Cardizem 120mg qAM today, rates in 100's this AM echo ordered - normal will change to Xarelto for AC since HIT testing negative today, stop Argatroban - 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, PCR sent out and pending ID recommends total of 14 days of Doxycycline Levaquin and Vanco stopped no fevers for several days now - Pancytopenia: also due to anaplasmosis, counts slowly improving - 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, however , definitive testing negative stop Argatroban today - Acute respiratory failure with hypoxia: resolved, still breathing room air, was due to COPD exacerbation - COPD exacerbation: responded well to Solu Medrol and nebulizers Prednisone 40mg qAM with taper on discharge - Demand ischemia: mild troponin bump, no chest pain, continue Aspirin and statin follow up echo results - normal - Hypothyroidism: TSH low at 0.2 so her dose of Synthroid 150mcg was likely too high continue to hold Synthroid and then resume at lower dose on discharge, likely 100mcg daily with afib, would want TSH high end of normal can repeat TSH in 6 weeks outpatient Hyperlipidemia--continue simvastatin 40 mg by mouth daily. DVT prophylaxis - Argatroban due to HIT PT OT evaluation and treatment ordered - recommend rehab full code can likely go to rehab tomorrow if accepted/insurance approves Continued [facility] stay due to: multiple IV medications needed Discharge planning: home
[2017-01-02] MEDS: OXYBUTYNIN CHLORIDE 5 MG TAB PO SCH (20:34)
[2017-01-03] VITALS (7 sets, daily range): BP systolic 124–151; BP diastolic 83–97; PULSE 69–111; TEMP 36.5–36.8; O2SAT 92–98
[2017-01-03] MEDS: LEVALBUTEROL 1.25MG/0.5ML NEB INH SCH ×3 (01:46→18:59)
[2017-01-03] MEDS: IPRATROPIUM BROMIDE NEB SOLN 0.02% 2.5 ML VIAL INH SCH ×3 (01:46→18:59)
[2017-01-03] MEDS: ENALAPRIL MALEATE 10 MG TAB PO SCH (08:29)
[2017-01-03] MEDS: OXYBUTYNIN CHLORIDE 5 MG TAB PO SCH ×2 (08:29→20:22)
[2017-01-03] MEDS: ASPIRIN 81 MG ECTAB PO SCH (08:29)
[2017-01-03] MEDS: FERROUS SULFATE 325 MG TAB PO SCH (08:30)
[2017-01-03] MEDS: DILTIAZEM HCL 120 MG CAPCR PO SCH (08:30)
[2017-01-03] MEDS: CARVEDILOL 25 MG TAB PO SCH ×2 (08:30→20:24)
[2017-01-03] MEDS: MULTIVITAMIN TAB PO SCH (08:30)
[2017-01-03] MEDS: SIMVASTATIN 40 MG TAB PO SCH (08:31)
[2017-01-03] MEDS ORDERED: VANCOMYCIN TROUGH ONE (09:30)
[2017-01-03 10:03] LABS: PARTIAL THROMBOPLASTIN RATIO 1.2
[2017-01-03 10:20] LABS: BUN/CREATININE RATIO 31.5 (10-20); CALCIUM 8.6 mg/dl (8.5-10.1); CREATININE 1.3 mg/dl (0.60-1.20); POTASSIUM 3.7 mmol/L (3.5-5.1)
[2017-01-03 10:22] LABS: MEAN CELL VOLUME 89.9 fL (80-100); MEAN CORPUSCULAR HEMOGLOBIN 28.6 pg (25-34); MEAN CORPUSCULAR HGB CONC 31.8 g/dl (32-36); MEAN PLATELET VOLUME 11.1 fL (7.4-10.4); PLATELET COUNT 144 K/uL (130-400); RED BLOOD COUNT 3.78 M/uL (4.2-5.4); WHITE BLOOD COUNT 13.61 K/uL (4.8-10.8)
--- NOTE | 2017-01-03 13:24 | Medical Student: [facility] ---
Med Student Progress Note Date of Service Jan 03, 2017. Subjective Pt evaluation today including: conversation w/ patient Alissa is feeling well today. She was dressed and ready for discharge when I came in the room. Today her new questions were in regards to where the infection came from and more information about it and if it could have caused all of her problems. 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 She was wondering if it could have caused her afib tachycardia, and I was uncertain, but described that a stress on the body such as infection may have been a factor. Otherwise, she repeated her question from Friday in regards to what is causing her shortness of breath and what she can do about it. I discussed that we are planning to have her go to rehab to hopefully improve fitness and respiratory ability. Today she denies any fevers, n/v/d, constipation, chest pain, chest pressure, shortness of breath, confusion, and lightheadedness. Review of Systems Constitutional: No fever, No chills, No sweats, No weight loss, No weakness, No fatigue, No problem reported ENT: No sore throat Respiratory: + wheezing, + shortness of breath, + dyspnea on exertion, No cough , No sputum, No dyspnea at rest, No hemoptysis Cardiac: No chest pain, No orthopnea, No PND, No edema, No claudication, No palpitations, No problem reported Abdomen: No pain, No nausea, No vomiting, No diarrhea, No constipation, No GI bleeding, No problem reported Neurologic: No paralysis, No weakness Objective Vital Signs Date Time Temp Pulse Resp B/P (MAP) Pulse Ox O2 Delivery O2 Flow Rate FiO2 01/03/17 08:30 95 Room Air 01/03/17 07:46 86 16 98 Room Air 01/03/17 07:16 36.5 91 18 151/97 (115) 95 01/03/17 01:47 82 16 95 Room Air 01/03/17 00:00 Room Air 01/02/17 23:37 36.6 90 18 154/93 (113) 93 Room Air 01/02/17 20:15 36.4 106 20 181/101 (127) 93 Room Air 01/02/17 19:44 103 16 91 Room Air 01/02/17 16:27 Room Air 01/02/17 15:02 100 92 01/02/17 14:51 36.3 106 20 160/77 (104) 91 01/02/17 14:23 104 16 93 Room Air Physical Exam General Appearance: WD/WN, no apparent distress ENT: hearing grossly normal Neck: supple, no JVD, no carotid bruits, trachea midline Respiratory/Chest: chest non-tender, no respiratory distress, no accessory muscle use, + wheezing (diffuse throughout the lungs, greater in [place]) Cardiovascular: no edema, no gallop, no JVD, no murmur, + tachycardia, + irregularly irregular, + pertinent finding (peripheral pulses were significantly slower than auscultated pulse ) Abdomen: non tender, soft, no pulsatile mass Extremities: non-tender, normal inspection, no pedal edema, no calf tenderness , normal capillary refill Neurologic/Psychiatric: alert, normal mood/affect, oriented x 3 Skin: + pertinent finding (scattered bruising) Laboratory Results Last 24 Hours Test 01/02/17 14:26 01/03/17 09:38 Activated Partial Thromboplast Time 42.8 SECONDS 31.5 SECONDS Partial Thromboplastin Ratio 1.6 1.2 White Blood Count 13.61 K/uL Red Blood Count 3.78 M/uL Hemoglobin 10.8 g/dL Hematocrit 34.0 % Mean Corpuscular Volume 89.9 fL Mean Corpuscular Hemoglobin 28.6 pg Mean Corpuscular Hemoglobin Concent 31.8 g/dl RDW Standard Deviation 49.3 fL RDW Coefficient of Variation 14.9 % Platelet Count 144 K/uL Mean Platelet Volume 11.1 fL Sodium Level 140 mmol/L Potassium Level 3.7 mmol/L Chloride Level 107 mmol/L Carbon Dioxide Level 27 mmol/L Anion Gap 6.0 mmol/L Blood Urea Nitrogen 41 mg/dl Creatinine 1.30 mg/dl Est Creatinine Clear Calc Drug Dose 36.5 ml/min Estimated GFR () 43.0 Estimated GFR (Non- 37.1 BUN/Creatinine Ratio 31.5 Random Glucose 118 mg/dl Calcium Level 8.6 mg/dl Total Bilirubin 0.6 mg/dl Direct Bilirubin 0.2 mg/dl Aspartate Amino Transf (AST/SGOT) 26 U/L Alanine Aminotransferase (ALT/SGPT) 50 U/L Alkaline Phosphatase 69 U/L Total Protein 6.0 gm/dl Albumin 2.9 gm/dl Vancomycin Level Trough 9.4 mcg/ml Assessment and Plan Assessment and Plan: Alissa is an 86 yo female who presented to the ER with chest pain, shortness of breath, palpitations, and nausea and an elevated Troponin.She has been afebrile for greater than 48 hours. 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 This condition could explain the fever, leukopenia, and thrombocytopenia. She is being treated with Doxycycline 100mg PO BID. The plan at this point is to discharge her to rehab once insurance approves. Palpitations, SOB, chest pain in the setting of Afib: - May have been due to medication side effect of Synthroid 150 mcg - May have been purely Afib etiology - May have been a mixture of thyroid, Afib, and infection stress - Tachycardia has been present in intervals of time in the past 24 hours - Asymptomatic - BP has been elevated periodically in past 24 hours - Continue to monitor vitals - Continue with Argatroban anticoagulation, Diltiazem, Lisinopril, and Carvedilol. Metoprolol PRN. - Discharge when approved for rehab. Fever: - No fever for greater than 48 hours - Stopped cephalosporin medications on 12/30 - Asymptomatic today - Positive Anaplasmosis finding, treating with doxycycline - Continue to monitor for fever - Continue with PO Doxycycline for a total of 14 days of treatment Anemia, leukopenia, thrombocytopenia: - Being attributed to anaplasmosis - Values improving - Asymptomatic - Continue Ferrous Sulfate and Multivitamins - If leukopenia worsens, consider neutropenic contact precautions - If anemia worsens, consider transfusion - If thrombocytopenia worsens, consider transfusion Continued [facility] stay due to: multiple IV medications needed Discharge planning: home
[2017-01-03] MEDS ORDERED: PRD20 PO (14:06)
[2017-01-03] MEDS ORDERED: DOXY-300 PO (14:06)
[2017-01-03] MEDS ORDERED: DTR5 PO (14:06)
[2017-01-03] MEDS ORDERED: ATRINS INH (14:06)
[2017-01-03] MEDS ORDERED: SYN112 PO (14:06)
[2017-01-03] MEDS ORDERED: CRG25 PO (14:06)
[2017-01-03] MEDS ORDERED: XPNINS1255 INH (14:06)
[2017-01-03] MEDS ORDERED: CRDCD120 PO (14:06)
[2017-01-03] MEDS ORDERED: XRL15 PO (14:06)
--- NOTE | 2017-01-03 15:56 | Progress Note ---
Subjective Date of Service: Jan 03, 2017. Subjective Pt evaluation today including: conversation w/ patient, physical exam, lab review, review of inpatient medication list Pain: no pain PO Intake: adequate Voiding: no voiding problems patient doing well, no fevers, eating well, breathing stable, denies chest pain discussed plan for Doxy for anaplasmosis, she understands awaiting answer on insurance authorization for rehab, no word yet this afternoon Problem List Medical Problems: (1) Elevated troponin Status: Acute (2) Fever Status: Acute (3) Rapid atrial fibrillation Status: Acute Review of Systems Respiratory: + dyspnea on exertion (minimal) All Other Systems: Reviewed and Negative Medications Current Inpatient Medications Medications (Trade) Dose Ordered Sig/Durga Route Start Time Stop Time Status Last Admin Dose Admin Acetaminophen (Tylenol Tab) 650 mg Q4H PRN PO 12/28/16 19:00 01/27/17 18:59 12/30/16 15:01 650 MG Nitroglycerin (Nitrostat Tab) 0.4 mg UD PRN SL 12/28/16 19:00 01/27/17 18:59 12/29/16 16:05 0.4 MG Aspirin (Ecotrin Tab) 81 mg DAILY PO 12/29/16 09:00 01/28/17 08:59 01/03/17 08:29 81 MG Enalapril Maleate (Vasotec Tab) 20 mg DAILY PO 12/29/16 09:00 01/28/17 08:59 01/03/17 08:29 20 MG Ferrous Sulfate (Feosol Tab) 325 mg DAILY PO 12/29/16 09:00 01/28/17 08:59 01/03/17 08:30 325 MG Multivitamins (Multivitamin Tab) 1 tab DAILY PO 12/29/16 09:00 01/28/17 08:59 01/03/17 08:30 1 TAB Simvastatin (Zocor Tab) 40 mg DAILY PO 12/29/16 09:00 01/28/17 08:59 01/03/17 08:31 40 MG Carvedilol (Coreg Tab) 25 mg BID PO 12/29/16 21:00 01/28/17 20:59 01/03/17 08:30 25 MG Ipratropium [place] (Atrovent 0.02% 0.5MG/2.5ML Neb) 0.5 mg Q6R INH 12/30/16 15:00 01/29/17 14:59 01/03/17 07:46 0.5 MG Levalbuterol (Xopenex 1.25MG/ 0.5ML Neb) 1.25 mg Q6R INH 12/30/16 15:00 01/29/17 14:59 01/03/17 07:46 1.25 MG Prednisone (PredniSONE TAB) 40 mg QAM PO 01/01/17 09:00 01/31/17 08:59 01/03/17 08:29 40 MG Diltiazem HCl (Cardizem Cd Cap) 120 mg QAM PO 01/03/17 08:00 02/02/17 07:59 01/03/17 08:30 120 MG Rivaroxaban (Xarelto Tab) 15 mg DAILYBD PO 01/02/17 13:45 02/01/17 13:44 01/02/17 14:19 15 MG Oxybutynin Chloride (Ditropan Tab) 5 mg BID PO 01/02/17 20:00 02/01/17 19:59 01/03/17 08:29 5 MG Doxycycline Hyclate (Vibramycin Cap) 100 mg BID PO 01/03/17 20:00 01/13/17 19:59 Objective Vital Signs Date Time Temp Pulse Resp B/P (MAP) Pulse Ox O2 Delivery O2 Flow Rate FiO2 01/03/17 08:30 95 Room Air 01/03/17 07:46 86 16 98 Room Air 01/03/17 07:16 36.5 91 18 151/97 (115) 95 01/03/17 01:47 82 16 95 Room Air 01/03/17 00:00 Room Air 01/02/17 23:37 36.6 90 18 154/93 (113) 93 Room Air 01/02/17 20:15 36.4 106 20 181/101 (127) 93 Room Air 01/02/17 19:44 103 16 91 Room Air 01/02/17 16:27 Room Air Physical Exam General Appearance: WD/WN, no apparent distress Neck: supple, no adenopathy, no JVD, trachea midline Respiratory/Chest: chest non-tender, no respiratory distress, no accessory muscle use, + wheezing (very faint, anteriorly on left and posteriorly on right) Cardiovascular: no edema, no gallop, no JVD, no murmur, + irregularly irregular Abdomen: normal bowel sounds, non tender, soft, no organomegaly Extremities: normal range of motion, non-tender, normal inspection, no pedal edema, no calf tenderness, pelvis stable Neurologic/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: 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, no motor/sensory deficits, alert, normal mood/affect, oriented x 3 Skin: normal color, warm/dry, no rash Laboratory Results Last 24 Hours Test 01/03/17 09:38 White Blood Count 13.61 K/uL Red Blood Count 3.78 M/uL Hemoglobin 10.8 g/dL Hematocrit 34.0 % Mean Corpuscular Volume 89.9 fL Mean Corpuscular Hemoglobin 28.6 pg Mean Corpuscular Hemoglobin Concent 31.8 g/dl RDW Standard Deviation 49.3 fL RDW Coefficient of Variation 14.9 % Platelet Count 144 K/uL Mean Platelet Volume 11.1 fL Activated Partial Thromboplast Time 31.5 SECONDS Partial Thromboplastin Ratio 1.2 Sodium Level 140 mmol/L Potassium Level 3.7 mmol/L Chloride Level 107 mmol/L Carbon Dioxide Level 27 mmol/L Anion Gap 6.0 mmol/L Blood Urea Nitrogen 41 mg/dl Creatinine 1.30 mg/dl Est Creatinine Clear Calc Drug Dose 36.5 ml/min Estimated GFR () 43.0 Estimated GFR (Non- 37.1 BUN/Creatinine Ratio 31.5 Random Glucose 118 mg/dl Calcium Level 8.6 mg/dl Total Bilirubin 0.6 mg/dl Direct Bilirubin 0.2 mg/dl Aspartate Amino Transf (AST/SGOT) 26 U/L Alanine Aminotransferase (ALT/SGPT) 50 U/L Alkaline Phosphatase 69 U/L Total Protein 6.0 gm/dl Albumin 2.9 gm/dl Vancomycin Level Trough 9.4 mcg/ml Assessment and Plan 86-year-old white female admitted with atrial fibrillation with RVR and fever, increased LFT, pancytopenia, 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 - Paroxysmal afib, now with persistent afib and RVR rates in 80-90's on Coreg 25mg BID and Diltiazem 120mg echo ordered - normal anticoagulate with Xarelto 15mg daily - 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, PCR sent out and pending ID recommends total of 14 days of Doxycycline Levaquin and Vanco stopped no fevers for several days now - Pancytopenia: also due to anaplasmosis, counts slowly improving - 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, however , definitive testing negative thrombocytopenia due to anaplasmosis - Acute respiratory failure with hypoxia: resolved, still breathing room air, was due to COPD exacerbation - COPD exacerbation: responded well to Solu Medrol and nebulizers Prednisone 40mg qAM with taper on discharge, 30 x 2, 20 x 2 and 10 x 2 - Demand ischemia: mild troponin bump, no chest pain, continue Aspirin and statin follow up echo results - normal - Hypothyroidism: TSH low at 0.2 so her dose of Synthroid 150mcg was likely too high continue to hold Synthroid and then resume at lower dose on discharge, likely 112mcg daily with afib, would want TSH high end of normal can repeat TSH in 6 weeks outpatient Hyperlipidemia--continue simvastatin 40 mg by mouth daily. 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
[2017-01-03] MEDS: RIVAROXABAN TAB 15 MG TAB PO SCH (16:17)
[2017-01-03] MEDS: DOXYCYCLINE HYCLATE 100 MG CAP PO SCH (20:24)
[2017-01-04] VITALS (9 sets, daily range): BP systolic 115–126; BP diastolic 57–88; PULSE 55–123; TEMP 36.3–36.5; O2SAT 90–98
[2017-01-04] MEDS: IPRATROPIUM BROMIDE NEB SOLN 0.02% 2.5 ML VIAL INH SCH ×4 (01:10→18:57)
[2017-01-04] MEDS: LEVALBUTEROL 1.25MG/0.5ML NEB INH SCH ×4 (01:10→18:57)
[2017-01-04 06:55] LABS: PARTIAL THROMBOPLASTIN RATIO 1.3
[2017-01-04] MEDS: MULTIVITAMIN TAB PO SCH (08:10)
[2017-01-04] MEDS: SIMVASTATIN 40 MG TAB PO SCH (08:10)
[2017-01-04] MEDS: OXYBUTYNIN CHLORIDE 5 MG TAB PO SCH ×2 (08:10→19:49)
[2017-01-04] MEDS: FERROUS SULFATE 325 MG TAB PO SCH (08:10)
[2017-01-04] MEDS: CARVEDILOL 25 MG TAB PO SCH ×2 (08:10→19:49)
[2017-01-04] MEDS: ASPIRIN 81 MG ECTAB PO SCH (08:10)
[2017-01-04] MEDS: DOXYCYCLINE HYCLATE 100 MG CAP PO SCH ×2 (08:10→19:49)
[2017-01-04] MEDS: ENALAPRIL MALEATE 10 MG TAB PO SCH (08:11)
[2017-01-04] MEDS: DILTIAZEM HCL 120 MG CAPCR PO SCH (08:11)
[2017-01-04] MEDS ORDERED: FUROSEMIDE 40 MG TAB PO ONE (11:30)
--- NOTE | 2017-01-04 11:49 | Progress Note ---
Subjective Date of Service: Jan 04, 2017. Subjective Pt evaluation today including: conversation w/ patient, physical exam, review of inpatient medication list Pain: denies pain PO Intake: adequate Voiding: no voiding problems says she feels a little more short of breath today compared to yesterday dyspnea on walking from bed to the bathroom no wheezing on exam reviewed I/O's, she is positive 8 L but probably not too accurate discussed giving a dose of Lasix, she agreed with this plan, feels her ankles are slightly swollen accepted to N, awaiting answer from insurance Problem List Medical Problems: (1) Elevated troponin Status: Acute (2) Fever Status: Acute (3) Rapid atrial fibrillation Status: Acute Review of Systems Constitutional: + weakness, + fatigue Respiratory: + dyspnea on exertion All Other Systems: Reviewed and Negative Medications Current Inpatient Medications Medications (Trade) Dose Ordered Sig/Durga Route Start Time Stop Time Status Last Admin Dose Admin Acetaminophen (Tylenol Tab) 650 mg Q4H PRN PO 12/28/16 19:00 01/27/17 18:59 12/30/16 15:01 650 MG Nitroglycerin (Nitrostat Tab) 0.4 mg UD PRN SL 12/28/16 19:00 01/27/17 18:59 12/29/16 16:05 0.4 MG Aspirin (Ecotrin Tab) 81 mg DAILY PO 12/29/16 09:00 01/28/17 08:59 01/04/17 08:10 81 MG Enalapril Maleate (Vasotec Tab) 20 mg DAILY PO 12/29/16 09:00 01/28/17 08:59 01/04/17 08:11 20 MG Ferrous Sulfate (Feosol Tab) 325 mg DAILY PO 12/29/16 09:00 01/28/17 08:59 01/04/17 08:10 325 MG Multivitamins (Multivitamin Tab) 1 tab DAILY PO 12/29/16 09:00 01/28/17 08:59 01/04/17 08:10 1 TAB Simvastatin (Zocor Tab) 40 mg DAILY PO 12/29/16 09:00 01/28/17 08:59 01/04/17 08:10 40 MG Carvedilol (Coreg Tab) 25 mg BID PO 12/29/16 21:00 01/28/17 20:59 01/04/17 08:10 25 MG Ipratropium [place] (Atrovent 0.02% 0.5MG/2.5ML Neb) 0.5 mg Q6R INH 12/30/16 15:00 01/29/17 14:59 01/04/17 07:09 0.5 MG Levalbuterol (Xopenex 1.25MG/ 0.5ML Neb) 1.25 mg Q6R INH 12/30/16 15:00 01/29/17 14:59 01/04/17 07:09 1.25 MG Prednisone (PredniSONE TAB) 40 mg QAM PO 01/01/17 09:00 01/31/17 08:59 01/04/17 08:10 40 MG Diltiazem HCl (Cardizem Cd Cap) 120 mg QAM PO 01/03/17 08:00 02/02/17 07:59 01/04/17 08:11 120 MG Rivaroxaban (Xarelto Tab) 15 mg DAILYBD PO 01/02/17 13:45 02/01/17 13:44 01/03/17 16:17 15 MG Oxybutynin Chloride (Ditropan Tab) 5 mg BID PO 01/02/17 20:00 02/01/17 19:59 01/04/17 08:10 5 MG Doxycycline Hyclate (Vibramycin Cap) 100 mg BID PO 01/03/17 20:00 01/13/17 19:59 01/04/17 08:10 100 MG Objective Vital Signs Date Time Temp Pulse Resp B/P (MAP) Pulse Ox O2 Delivery O2 Flow Rate FiO2 01/04/17 08:30 90 Room Air 01/04/17 07:34 36.3 85 17 126/88 (101) 90 Room Air 01/04/17 07:11 78 16 93 Room Air 01/04/17 01:11 72 16 93 Room Air 01/04/17 00:00 Room Air 01/03/17 23:52 36.8 69 16 124/83 (97) 93 Room Air 01/03/17 20:00 92 Room Air 01/03/17 18:59 111 16 92 Room Air 01/03/17 16:00 Room Air Physical Exam General Appearance: WD/WN, no apparent distress Neck: supple, no adenopathy, no JVD, trachea midline Respiratory/Chest: chest non-tender, lungs clear (no wheezing), normal breath sounds, no respiratory distress, no accessory muscle use Cardiovascular: no edema, no gallop, no JVD, no murmur, + irregularly irregular Abdomen: normal bowel sounds, non tender, soft, no organomegaly Extremities: normal range of motion, non-tender, normal inspection, no calf tenderness, pelvis stable, + pedal edema (trace edema in ankles bilaterally) 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, no motor/sensory deficits, alert, normal mood/affect, oriented x 3 Skin: normal color, warm/dry, no rash Lymphatic: no adenopathy Laboratory Results Last 24 Hours Test 01/04/17 05:39 Activated Partial Thromboplast Time 33.5 SECONDS Partial Thromboplastin Ratio 1.3 Assessment and Plan 86-year-old white female admitted with atrial fibrillation with RVR and fever, increased LFT, pancytopenia, 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 - Paroxysmal afib, now with persistent afib and episodes of RVR on admission rates in 80-90's on Coreg 25mg BID and Diltiazem 120mg echo ordered - normal anticoagulate with Xarelto 15mg daily - 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, PCR sent out and pending ID recommends total of 14 days of Doxycycline Levaquin and Vanco stopped no fevers for several days now - Pancytopenia: also due to anaplasmosis, counts slowly improving repeat CBC tomorrow - 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, however , definitive testing negative thrombocytopenia due to anaplasmosis - Acute respiratory failure with hypoxia: resolved, still breathing room air, was due to COPD exacerbation - COPD exacerbation: responded well to Solu Medrol and nebulizers Prednisone 40mg qAM, start to taper tomorrow with 30mg plan for 30 x 2, 20 x 2 and 10 x 2 days and stop - Increase dyspnea, mild volume overload: give Lasix 40mg PO x 1 today and monitor response - DAVID on CKD stage III: Cr was 1.4 yesterday, will repeat tomorrow, making adequate urine, drinking well Lasix 40mg PO today - Demand ischemia: mild troponin bump, no chest pain, continue Aspirin and statin follow up echo results - normal - Hypothyroidism: TSH low at 0.2 so her dose of Synthroid 150mcg was likely too high continue to hold Synthroid and then resume at lower dose on discharge, likely 112mcg daily with afib, would want TSH high end of normal can repeat TSH in 6 weeks outpatient Hyperlipidemia--continue simvastatin 40 mg by mouth daily. DVT prophylaxis - Xarelto PT OT evaluation and treatment ordered - recommend rehab full code medically stable, awaiting answer on insurance coverage Continued [facility] stay due to: multiple IV medications needed Discharge planning: home
[2017-01-04] MEDS: RIVAROXABAN TAB 15 MG TAB PO SCH (18:42)
[2017-01-05] VITALS (13 sets, daily range): BP systolic 100–125; BP diastolic 54–82; PULSE 74–118; TEMP 36.4–36.8; O2SAT 95–100
[2017-01-05] MEDS: LEVALBUTEROL 1.25MG/0.5ML NEB INH SCH ×4 (01:23→19:23)
[2017-01-05] MEDS: IPRATROPIUM BROMIDE NEB SOLN 0.02% 2.5 ML VIAL INH SCH ×4 (01:23→19:23)
[2017-01-05 06:46] LABS: PARTIAL THROMBOPLASTIN RATIO 1.2
[2017-01-05 07:33] LABS: HEMATOCRIT 24.2 % (37-47); MEAN CORPUSCULAR HGB CONC 32.6 g/dl (32-36); MEAN PLATELET VOLUME 10.7 fL (7.4-10.4); PLATELET COUNT 229 K/uL (130-400); RED BLOOD COUNT 2.72 M/uL (4.2-5.4); WHITE BLOOD COUNT 16.33 K/uL (4.8-10.8)
[2017-01-05 07:36] LABS: BASO % 0.1 %; BASO ABS # 0.01 K/uL (0-0.2); COMPLETE YES; EOS % 0.4 %; IG% 1.2 %; LYMPH ABS # 4.57 K/uL (1.2-3.4); MONO % 10.5 %; NEUT % 59.8 %
[2017-01-05] MEDS: OXYBUTYNIN CHLORIDE 5 MG TAB PO SCH ×2 (07:38→19:58)
[2017-01-05] MEDS: CARVEDILOL 25 MG TAB PO SCH ×2 (07:38→19:58)
[2017-01-05] MEDS: DOXYCYCLINE HYCLATE 100 MG CAP PO SCH ×2 (07:38→19:58)
[2017-01-05] MEDS: ASPIRIN 81 MG ECTAB PO SCH (07:39)
[2017-01-05] MEDS: MULTIVITAMIN TAB PO SCH (07:39)
[2017-01-05] MEDS: SIMVASTATIN 40 MG TAB PO SCH (07:39)
[2017-01-05] MEDS: ENALAPRIL MALEATE 10 MG TAB PO SCH (07:39)
[2017-01-05] MEDS: DILTIAZEM HCL 120 MG CAPCR PO SCH (07:39)
[2017-01-05] MEDS: FERROUS SULFATE 325 MG TAB PO SCH (07:39)
[2017-01-05] MEDS ORDERED: PANTOprazole SOD 40 MG TAB PO ONE (09:00)
[2017-01-05 09:14] LABS: BUN/CREATININE RATIO 36.6 (10-20); CREATININE 0.86 mg/dl (0.60-1.20); POTASSIUM 3.4 mmol/L (3.5-5.1)
[2017-01-05] MEDS ORDERED: FUROSEMIDE INJ 20 MG in SYRINGE 0 ML IV SCH (12:00)
[2017-01-05] MEDS ORDERED: POTASSIUM CHLORIDE 10 MEQ TABCR PO ONE (14:00)
--- NOTE | 2017-01-05 14:45 | Progress Note ---
Subjective Date of Service: Jan 05, 2017. Subjective Pt evaluation today including: conversation w/ patient, conversation w/ family , physical exam, lab review, review of inpatient medication list Pain: no pain PO Intake: adequate Voiding: no voiding problems patient responded well to Lasix 40mg IV yesterday, but still short of breath reviewed lab work, Hb dropped to 7.9 from 10.8, no signs of bleeding patient certainly symptomatic with increased HR and tachypnea, agreeable to transfusion no wheezing or cough, she feels that her COPD is stable no fever or chills eating well, moving bowels, no melena or bright red blood noted discussed that she will be NPO after midnight and ask GI to evaluate Problem List Medical Problems: (1) Elevated troponin Status: Acute (2) Fever Status: Acute (3) Rapid atrial fibrillation Status: Acute Review of Systems Constitutional: + weakness, + fatigue Respiratory: + dyspnea on exertion Neurologic: + weakness All Other Systems: Reviewed and Negative Medications Current Inpatient Medications Medications (Trade) Dose Ordered Sig/Durga Route Start Time Stop Time Status Last Admin Dose Admin Acetaminophen (Tylenol Tab) 650 mg Q4H PRN PO 12/28/16 19:00 01/27/17 18:59 12/30/16 15:01 650 MG Nitroglycerin (Nitrostat Tab) 0.4 mg UD PRN SL 12/28/16 19:00 01/27/17 18:59 12/29/16 16:05 0.4 MG Aspirin (Ecotrin Tab) 81 mg DAILY PO 12/29/16 09:00 01/28/17 08:59 Future Hold 01/05/17 07:39 81 MG Enalapril Maleate (Vasotec Tab) 20 mg DAILY PO 12/29/16 09:00 01/28/17 08:59 01/05/17 07:39 20 MG Ferrous Sulfate (Feosol Tab) 325 mg DAILY PO 12/29/16 09:00 01/28/17 08:59 01/05/17 07:39 325 MG Multivitamins (Multivitamin Tab) 1 tab DAILY PO 12/29/16 09:00 01/28/17 08:59 01/05/17 07:39 1 TAB Simvastatin (Zocor Tab) 40 mg DAILY PO 12/29/16 09:00 01/28/17 08:59 01/05/17 07:39 40 MG Carvedilol (Coreg Tab) 25 mg BID PO 12/29/16 21:00 01/28/17 20:59 01/05/17 07:38 25 MG Ipratropium [place] (Atrovent 0.02% 0.5MG/2.5ML Neb) 0.5 mg Q6R INH 12/30/16 15:00 01/29/17 14:59 01/05/17 13:45 0.5 MG Levalbuterol (Xopenex 1.25MG/ 0.5ML Neb) 1.25 mg Q6R INH 12/30/16 15:00 01/29/17 14:59 01/05/17 13:45 1.25 MG Diltiazem HCl (Cardizem Cd Cap) 120 mg QAM PO 01/03/17 08:00 02/02/17 07:59 01/05/17 07:39 120 MG Rivaroxaban (Xarelto Tab) 15 mg DAILYBD PO 01/02/17 13:45 02/01/17 13:44 Future Hold 01/04/17 18:42 15 MG Oxybutynin Chloride (Ditropan Tab) 5 mg BID PO 01/02/17 20:00 02/01/17 19:59 01/05/17 07:38 5 MG Doxycycline Hyclate (Vibramycin Cap) 100 mg BID PO 01/03/17 20:00 01/13/17 19:59 01/05/17 07:38 100 MG Prednisone (PredniSONE TAB) 30 mg QAM PO 01/06/17 08:00 02/05/17 07:59 Pantoprazole Sodium (Protonix Tab) 40 mg BID PO 01/05/17 20:00 02/04/17 19:59 Objective Vital Signs Date Time Temp Pulse Resp B/P (MAP) Pulse Ox O2 Delivery O2 Flow Rate FiO2 01/05/17 13:50 36.5 110 22 107/74 100 2.0 01/05/17 13:46 99 18 98 Room Air 01/05/17 12:50 36.5 108 21 100/54 100 01/05/17 12:20 36.8 105 20 107/67 99 01/05/17 12:05 36.4 109 22 108/71 100 01/05/17 11:49 36.5 108 22 117/81 100 1.0 01/05/17 08:00 Room Air 01/05/17 07:33 118 18 95 Room Air 01/05/17 07:07 36.6 106 16 125/70 (88) 95 01/05/17 01:23 78 18 95 Room Air 01/05/17 00:00 Room Air 01/04/17 23:06 36.4 99 20 124/81 (95) 98 Room Air 01/04/17 20:00 Room Air 01/04/17 19:50 123 20 123/77 (92) 96 Room Air 01/04/17 18:57 78 18 96 Room Air 01/04/17 17:30 Room Air 01/04/17 14:57 36.5 55 22 115/57 (76) 95 Room Air Physical Exam General Appearance: WD/WN, no apparent distress Neck: supple, no adenopathy, no JVD, trachea midline Respiratory/Chest: chest non-tender, lungs clear, normal breath sounds, no respiratory distress, no accessory muscle use Cardiovascular: no edema, no gallop, no JVD, no murmur, + tachycardia, + irregularly irregular Abdomen: normal bowel sounds, non tender, soft, no organomegaly Extremities: normal range of motion, non-tender, normal inspection, no pedal edema, no calf tenderness, pelvis stable Neurologic/Psychiatric: clinical neuropsychologist II-XII nml as tested, no motor/sensory deficits, alert, normal mood/affect, oriented x 3 Skin: warm/dry, no rash, + pallor Lymphatic: no adenopathy Laboratory Results Last 24 Hours Test 01/05/17 05:42 01/05/17 08:19 01/05/17 13:00 White Blood Count 16.33 K/uL Red Blood Count 2.72 M/uL Hemoglobin 7.9 g/dL Hematocrit 24.2 % Mean Corpuscular Volume 89.0 fL Mean Corpuscular Hemoglobin 29.0 pg Mean Corpuscular Hemoglobin Concent 32.6 g/dl Platelet Count 229 K/uL Mean Platelet Volume 10.7 fL Neutrophils (%) (Auto) 59.8 % Lymphocytes (%) (Auto) 28.0 % Monocytes (%) (Auto) 10.5 % Eosinophils (%) (Auto) 0.4 % Basophils (%) (Auto) 0.1 % Neutrophils # (Auto) 9.77 K/uL Lymphocytes # (Auto) 4.57 K/uL Monocytes # (Auto) 1.72 K/uL Eosinophils # (Auto) 0.06 K/uL Basophils # (Auto) 0.01 K/uL RDW Standard Deviation 48.5 fL RDW Coefficient of Variation 14.9 % Immature Granulocyte % (Auto) 1.2 % Immature Granulocyte # (Auto) 0.20 K/uL Red Blood Cell Morphology Unremarkable Activated Partial Thromboplast Time 31.5 SECONDS Partial Thromboplastin Ratio 1.2 Total Bilirubin 0.6 mg/dl Direct Bilirubin 0.2 mg/dl Aspartate Amino Transf (AST/SGOT) 16 U/L Alanine Aminotransferase (ALT/SGPT) 38 U/L Alkaline Phosphatase 60 U/L Total Protein 5.2 gm/dl Albumin 2.5 gm/dl Sodium Level 141 mmol/L Potassium Level 3.4 mmol/L Chloride Level 104 mmol/L Carbon Dioxide Level 31 mmol/L Anion Gap 6.0 mmol/L Blood Urea Nitrogen 32 mg/dl Creatinine 0.86 mg/dl Est Creatinine Clear Calc Drug Dose 55.2 ml/min Estimated GFR () 70.9 Estimated GFR (Non- 61.2 BUN/Creatinine Ratio 36.6 Random Glucose 83 mg/dl Calcium Level 8.0 mg/dl Assessment and Plan 86-year-old white female admitted with atrial fibrillation with RVR and fever, increased LFT, pancytopenia, 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 - Paroxysmal afib, now with persistent afib and episodes of RVR on admission rates in 80-90's on Coreg 25mg BID and Diltiazem 120mg echo ordered - normal anticoagulate with Xarelto 15mg daily - hold now with drop in Hb HR up slightly with anemia but normal response, so will not increase Diltiazem, look for rate to improve with transfusion - 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, PCR sent out and still pending ID recommends total of 14 days of Doxycycline, started 01/03, last day 01/17 Levaquin and Vanco stopped no fevers for several days now - Acute anemia: Hb dropped to 7.9 from 10.8, no signs of melena, will heme occult stools transfuse 1 units PRBC with Lasix 20mg IV afterwards patient symptomatic with increased dyspnea on exertion, tachycardia NPO after midnight, consult GI, add Protonix BID Prednisone would place at risk for ulcers, but only given for a few days - 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, however , definitive testing negative thrombocytopenia due to anaplasmosis, platelets now normal for several days - Acute respiratory failure with hypoxia: resolved, still breathing room air, was due to COPD exacerbation - COPD exacerbation: responded well to Solu Medrol and nebulizers Prednisone 30mg today and tomorrow, 20mg 01/07 and 01/08, 10mg 01/09 and 01/10 and stop - Mild volume overload: responded well to Lasix 40mg IV, will give another 20mg IV after transfusion - DAVID on CKD stage III: resolved, Cr was 1.4 on 01/03 but 0.86 today making adequate urine - Hypothyroidism: TSH low at 0.2 so her dose of Synthroid 150mcg was likely too high continue to hold Synthroid and then resume at lower dose on discharge, likely 112mcg daily with afib, would want TSH high end of normal can repeat TSH in 6 weeks outpatient Hyperlipidemia--continue simvastatin 40 mg by mouth daily. DVT prophylaxis - Xarelto, on hold due to possible bleeding PT OT evaluation and treatment ordered - recommend rehab full code was planning on discharge tomorrow, but now with anemia, would hold on discharge Continued [facility] stay due to: multiple IV medications needed Discharge planning: home
[2017-01-05 17:19] LABS: HEMATOCRIT 28.4 % (37-47)
[2017-01-05] MEDS: PANTOprazole SOD 40 MG TAB PO SCH (20:19)
[2017-01-06] VITALS (14 sets, daily range): BP systolic 103–122; BP diastolic 64–72; PULSE 60–120; TEMP 36.4–36.7; O2SAT 93–100
[2017-01-06] MEDS: IPRATROPIUM BROMIDE NEB SOLN 0.02% 2.5 ML VIAL INH SCH ×4 (01:16→19:15)
[2017-01-06] MEDS: LEVALBUTEROL 1.25MG/0.5ML NEB INH SCH ×4 (01:17→19:15)
[2017-01-06 07:54] LABS: BUN/CREATININE RATIO 30.3 (10-20); CALCIUM 7.9 mg/dl (8.5-10.1); CREATININE 1.1 mg/dl (0.60-1.20); POTASSIUM 4.1 mmol/L (3.5-5.1)
[2017-01-06] MEDS: DOXYCYCLINE HYCLATE 100 MG CAP PO SCH ×2 (07:56→20:03)
[2017-01-06] MEDS: CARVEDILOL 25 MG TAB PO SCH ×2 (07:56→20:05)
[2017-01-06] MEDS: OXYBUTYNIN CHLORIDE 5 MG TAB PO SCH ×2 (07:56→20:04)
[2017-01-06] MEDS: FERROUS SULFATE 325 MG TAB PO SCH (07:56)
[2017-01-06] MEDS: SIMVASTATIN 40 MG TAB PO SCH (07:56)
[2017-01-06] MEDS: ENALAPRIL MALEATE 10 MG TAB PO SCH (07:56)
[2017-01-06] MEDS: MULTIVITAMIN TAB PO SCH (07:57)
[2017-01-06] MEDS: DILTIAZEM HCL 120 MG CAPCR PO SCH (07:57)
--- NOTE | 2017-01-06 10:15 | Gastrointestinal Consultation ---
Gastrointestinal Consultation Date of Consultation: Jan 06, 2017 Attending Physician: Dr. Villa Consulting Physician: Dr. Crockett/MILANA Wagner Reason for Consultation: Drop in Hemoglobin History of Present Illness Patient is a 86 year old female with a history of NARESH and melena previously diagnosed with large rectal ulcerations in 2009 as well as paroxysmal atrial fibrillation admitted with chest pain, shortness of breath and atrial fibrillation with RVR. She has been managed medically from a cardiac standpoint. She remains in an irregular heart rhythm. During the course of her hospitalization, she has been reporting intermittent nausea as well as new onset of abdominal discomfort. She states she was nauseated yesterday but not today. Abdominal pain is described as a "soreness" rather than a pain and states "I can't use the pain scale as it is a more of a discomfort than a pain" . The maximal tenderness is in the upper right quadrant. She denies any overt GIB with hematemesis, melena or hematochezia. She does report some mild constipation as her activity level has been decreased. No other GI complaints. H &H was noted to be 13.7 and 41.3 on arrival. The hemoglobin dropped slowly throughout her hospitalization but had a significant drop from 10.8 to 7.9. Hematocrit was 24.2 as well yesterday. The patient did receive one unit of PRBCs and H&H was 9.3/28.4 today. Patient states she was short of breath yesterday and with significant fatigue but has improved after blood transfusion. Risk factors: outpatient use of low dose aspirin. States she was previously on 325 mg of aspirin daily but was stopped approximately 1-2 years ago due to concern for her history of anemia. Currently, the patient remains on Protonix 40 mg BID. Aspirin was held yesterday and she is on a NPO status. Past endoscopic work up in 2009 included an EGD with findings of hiatus hernia and LA Class A reflux esophagitis. Colonoscopy as mentioned with rectal ulcerations with moderate chronic inflammation without significant cryptitis, therefore not felt overly convincing for IBD. Past Medical/Surgical History Medical Problems: (1) Elevated troponin Status: Acute (2) Fever Status: Acute (3) Rapid atrial fibrillation Status: Acute Past Medical History: 1. Hypertension 2. Atrial fibrillation 3. Rectal ulcer 4. NARESH 5. Hypercholesterolemia 6. CAD 7. Hypothyroidism 8. Septic right hip with fluid collection Past Surgical History: 1. EGD 2. Colonoscopy 3. Right hip replacement 4. Left knee replacement 5. Appendectomy 6. Cataract surgery Family History Negative for GI malignancy and IBD Social History Smoking Status: Former Smoker Alcohol Use: none Drug Use: none Marital Status: Occupation Status: retired Allergies Coded Allergies: Shellfish (Verified Allergy, Severe, ANAPHYLAXIS, sea scallops, 01/02/17) Scallop (Unverified Allergy, Unknown, sea scallops, 01/02/17) Current Medications Home Meds and Scripts Medications Dose Route/Sig Max Daily Dose Days Date Category Dose Instructions Doxycycline (Doxycycline (Monohydrate)) 100 Mg Cap 100 Mg PO BID 10 01/03/17 Rx Synthroid (Levothyroxine Sodium) 112 Mcg Tab 1 Tab PO QAM 30 01/03/17 Rx Prednisone 20 Mg Tab 30 Mg PO QAM 01/03/17 Rx Start at 30mg daily x 2 days, 20mg daily x 2 days, 10mg daily x 2 days then stop Oxybutynin Chloride 5 Mg Tab 5 Mg PO BID 01/03/17 Rx Diltiazem Cd (Diltiazem HCl) 120 Mg Capcr 120 Mg PO QAM 01/03/17 Rx Carvedilol 25 Mg Tab 25 Mg PO BID 01/03/17 Rx Xarelto (Rivaroxaban) 15 Mg Tab 15 Mg PO DAILYBD 01/03/17 Rx Ipratropium [place] 0.5 Mg/2.5 Ml Nebu 0.5 Mg INH Q6R PRN 7 01/03/17 Rx Levalbuterol 1.25 Mg/0.5 Ml Nebu 1.25 Mg INH Q6R PRN 7 01/03/17 Rx Glucosamine Chondroitin (Smaihbutrxv-Lgvllkchhan-Goo C-) 1 Cap Cap 1 Cap PO DAILY 12/28/16 Reported Ferrous Sulfate 325 Mg Tab 325 Mg PO DAILY 12/28/16 Reported Co Q 10 (Coenzyme Q10 (Ubidecarenone)) 100 Mg Cap 100 Mg PO DAILY 12/28/16 Reported Coreg Cr (Carvedilol Phosphate) 80 Mg Cap 80 Mg PO QAM 12/28/16 Reported Ecotrin Or Generic (Aspirin) 81 Mg Tab 81 Mg PO DAILY 12/28/16 Reported Synthroid (Levothyroxine Sodium) 150 Mcg Tab 150 Mcg PO DAILY 12/28/16 Reported Caltrate 600 (Calcium Carbonate) 1,500 Mg Tab 1,500 Mg PO DAILY 12/28/16 Reported Nitrostat (Nitroglycerin) 0.4 Mg Tab 0.4 Mg UT PRN 02/27/11 Reported Vasotec (Enalapril Maleate) 10 Mg Tab 20 Mg PO DAILY 10/04/09 Reported Multivitamin (Multivitamins) Tab 1 Tab BT DAILY 10/04/09 Reported Zocor (Simvastatin) 40 Mg Tab 40 Mg PO DAILY 10/04/09 Reported Review of Systems Constitutional: + see HPI Eyes: No problem reported ENT: No problem reported Respiratory: + see HPI Cardiac: + see HPI Abdomen: + see HPI Musculoskeletal: No problem reported Female : No problem reported Neuro: No problem reported Psych: No problem reported Skin: + color change (pallor) Physical Exam Date Time Temp Pulse Resp B/P (MAP) Pulse Ox O2 Delivery O2 Flow Rate FiO2 01/06/17 07:14 120 16 96 Room Air 01/06/17 07:08 36.4 105 18 107/72 (84) 96 Room Air 01/06/17 01:17 79 16 95 Room Air 01/06/17 00:00 Nasal Cannula 2.0 01/05/17 23:00 36.4 100 20 122/74 (90) 95 Room Air 01/05/17 20:00 Nasal Cannula 2.0 01/05/17 19:56 111 20 123/81 (95) 100 Nasal Cannula 2.0 01/05/17 19:24 74 16 96 Nasal Cannula 2.0 01/05/17 16:00 Nasal Cannula 2.0 01/05/17 15:35 36.6 99 20 116/82 (93) 98 01/05/17 13:50 36.5 110 22 107/74 100 2.0 01/05/17 13:46 99 18 98 Room Air 01/05/17 12:50 36.5 108 21 100/54 100 01/05/17 12:20 36.8 105 20 107/67 99 01/05/17 12:05 36.4 109 22 108/71 100 01/05/17 11:49 36.5 108 22 117/81 100 1.0 General Appearance: no apparent distress Eyes: EOMI ENT: hearing grossly normal Neck: supple Respiratory/Chest: lungs clear, normal breath sounds Cardiovascular: no murmur, + irregularly irregular Abdomen: normal bowel sounds, soft, + tenderness (upper abdomen) Extremities: no pedal edema Neurologic/Psych: alert, normal mood/affect, oriented x 3 Skin: warm/dry, + pallor Laboratory Results Last 24 Hours Test 01/05/17 17:06 01/06/17 06:51 Hemoglobin 9.3 g/dL Hematocrit 28.4 % Sodium Level 140 mmol/L Potassium Level 4.1 mmol/L Chloride Level 105 mmol/L Carbon Dioxide Level 32 mmol/L Anion Gap 3.0 mmol/L Blood Urea Nitrogen 33 mg/dl Creatinine 1.10 mg/dl Est Creatinine Clear Calc Drug Dose 43.2 ml/min Estimated GFR () 52.6 Estimated GFR (Non- 45.4 BUN/Creatinine Ratio 30.3 Random Glucose 90 mg/dl Calcium Level 7.9 mg/dl Magnesium Level 2.0 mg/dl Impression Patient is a 86 year old female admitted with shortness of breath and chest pain in the setting of A fib with RVR with new onset of nausea, abdominal discomfort and anemia without overt GIB. Plan 1. Keep NPO. 2. EGD today with Dr. Crockett. 3. Continue Protonix 40 mg BID. 4. Additional recommendations pending results of testing. Thank you for allowing us to participate in the care of this patient. If you have any questions or concerns, please do not hesitate to contact us. Agree with MILANA Wagner as above Abd: Soft, NT, ND, +BS EGD today for further evaluation of symptoms Continue current therapy
[2017-01-06] MEDS ORDERED: DIGOXIN IV 250 MCG in SYRINGE 9 ML IV ONE ×3 (11:00→19:00)
[2017-01-06] MEDS: PANTOprazole SOD 40 MG TAB PO SCH ×2 (11:10→20:04)
--- NOTE | 2017-01-06 11:10 | CARDIOLOGY PROGRESS NOTE ---
DATE: 01/06/2017 HISTORY OF PRESENT ILLNESS: The patient was seen by me this morning in her medical floor bed. She denies any palpitations. She had dyspnea yesterday. This is resolved after being transfused 1 unit of packed red blood cells. Prior to the transfusion, her hemoglobin was 7.9. Followup hemoglobin post-transfusion was 9.3. Yesterday, she states she had postural lightheadedness. No postural lightheadedness today. She denies any dyspnea lying in bed. No dyspnea walking about the room this morning. No lightheadedness today. No syncope. She denies any palpitations. No chest pain or other anginal type pains. No leg pain. She does complain of diffuse mild abdominal discomfort. She is n.p.o. She is scheduled to undergo endoscopy later today. This will be an EGD. The patient denies any symptoms of GI bleeding. No black stools. No bright red blood in her stools. No other bleeding complaints. She also denies any neurologic symptoms. No symptoms suggestive of a thromboembolic event. CURRENT MEDICATIONS: Prednisone 30 mg daily, pantoprazole 40 mg b.i.d., doxycycline 100 mg b.i.d., Diltiazem CD 120 mg daily, oxybutynin 5 mg b.i.d., Atrovent 0.5 mg q. 6 hours, Xopenex 1.25 mg q. 6 hours, carvedilol 25 mg b.i.d., enalapril 20 mg daily, ferrous sulfate 325 mg daily, multivitamin 1 daily, and simvastatin 40 mg daily. She was on Xarelto 50 mg daily. Last dose was on January 04. That medication is currently on hold. Allergies: No known drug allergies. Physical exam: Vital signs this morning referral temperature 36.4, pulse 120, blood pressure 107/72, pulse oximetry room air 96 percent. general appearance shows her to be in no distress. Neck: No jugular venous distention. Lungs: Normal respiratory effort. Clear. No rales or wheezes. Heart: Irregularly irregular. Increased rate. No murmur, S3, or rub. abdomen: Soft. Mild lower tenderness. No palpable masses organomegaly. Normal bowel sounds. No bruits. Extremities: No pretibial edema. No calf tenderness. Neurologic: Alert and oriented x3. Motor grossly intact. Psychiatric: Affect is normal. Metabolic profile today with sodium 140, potassium 4.1, chloride 105, carbon dioxide 32, BUN 33, creatinine 1.10, random glucose 90. Magnesium 2.0. Hemoglobin /hematocrit last evening 9.3/28.4. echocardiogram December a with normal left ventricular systolic function. Mild concentric LVH. Mild right ventricular systolic dysfunction. Mild biatrial dilatation. Mild pulmonic regurgitation. Moderate mitral regurgitation. Moderate to severe tricuspid regurgitation. Mildly elevated estimated right ventricular systolic pressure. Aortic valve sclerosis without stenosis. Assessment: 1. Atrial fibrillation. Increased ventricular response. This could be secondary to her anemia. She is asymptomatic with the rapid ventricular response. 2. No evidence of pulmonary vascular congestion on exam today. No evidence of volume overload on exam. 3. Coronary artery disease. No current anginal symptoms. 4. Thrombocytopenia has resolved. 5 Anemia. No symptoms of bleeding. 6. No symptoms suggestive of a thromboembolic event. 7. She is now afebrile. Recommendations and plan: 1. Digoxin 0.25 milligrams IV now. Repeat in 4 hours and then in 8 hours. Same dose. 2. Digoxin level in a.m.. 3. The patient is an acceptable risk to undergo her EGD. If she has elevated ventricular rate with atrial fibrillation in the endoscopy lab she could be given intravenous metoprolol. 4. Continue other medications as above. 5. Reinstitute anticoagulation therapy when it is okay from a GI standpoint. MTDD
[2017-01-06] MEDS ORDERED: ALBUTEROL HFA INHALER 8.5 GM INH ONE (13:04)
[2017-01-06] MEDS ORDERED: LIDOCAINE HCL 2% 2 ML VIAL (20MG/ML) ONE (13:29)
[2017-01-06] MEDS ORDERED: PROPOFOL IV EMULSION 10 MG/ML 20 ML VIAL IV ONE (13:29)
--- NOTE | 2017-01-06 14:29 | GI REPORT ---
Procedure Date: 01/06/2017 12:55 PM Procedure: Upper GI endoscopy Indications: Iron deficiency anemia Medicines: Monitored Anesthesia Care Complications: No immediate complications. Estimated Blood Loss: Estimated blood loss: none. Procedure: Pre-Anesthesia Assessment: - Prior to the procedure, a History and Physical was performed, and patient medications and allergies were reviewed. The patient's tolerance of previous anesthesia was also reviewed. The risks and benefits of the procedure and the sedation options and risks were discussed with the patient. All questions were answered, and informed consent was obtained. Prior Anticoagulants: The patient last took aspirin 1 day and Xarelto (rivaroxaban) 2 days prior to the procedure. ASA Grade Assessment: III - A patient with severe systemic disease. After reviewing the risks and benefits, the patient was deemed in satisfactory condition to undergo the procedure. After obtaining informed consent, the endoscope was passed under direct vision. Throughout the procedure, the patient's blood pressure, pulse, and oxygen saturations were monitored continuously. The scope was introduced through the mouth, and advanced to the second part of duodenum. The upper GI endoscopy was accomplished without difficulty. The patient tolerated the procedure well. Findings: Mildly severe esophagitis with no bleeding was found. A small hiatus hernia was found with evidence of mucosal friability. One non-bleeding cratered gastric ulcer with no stigmata of bleeding was found in the gastric antrum. The lesion was 7 mm in largest dimension. The examined duodenum was normal. Impression: - Mildly severe reflux esophagitis. - Small hiatus hernia. - Non-bleeding gastric ulcer with no stigmata of bleeding. - Normal examined duodenum. - No specimens collected. Recommendation: - Return patient to hospital [facility] for ongoing care. - Mechanical soft diet today. - Continue present medications. - Repeat the upper endoscopy in 6 weeks to check healing. Morris Crockett DO 01/06/2017 2:28:06 PM This report has been signed electronically. Note Initiated On: 01/06/2017 12:55 PM I attest to the content of the Intraoperative Record and orders documented therein, exceptions below
[2017-01-06] MEDS ORDERED: PHENYLEPHRINE 100MCG/ML 5ML SYR ONE (14:32)
--- NOTE | 2017-01-06 15:38 | Anesthesiology Progress Note ---
Anesthesia Post Op Note Date & Time Jan 06, 2017 at 15:15 Vital Signs Pain Intensity: 0.0 Vital Signs Past 12 Hours Date Time Temp Pulse Resp B/P (MAP) Pulse Ox O2 Delivery O2 Flow Rate FiO2 01/06/17 14:53 87 20 101/54 (70) 94 Nasal Cannula 3 01/06/17 14:45 82 20 87/48 (61) 94 Room Air 01/06/17 14:37 87 20 83/60 (68) 99 Room Air 01/06/17 14:31 86 20 90/56 (67) 99 Room Air 01/06/17 12:49 36.8 75 20 98/60 (73) 94 Room Air 01/06/17 11:44 36.6 108 20 108/68 (81) 95 Room Air 01/06/17 11:30 106 20 96 Room Air 01/06/17 11:25 104 18 96 01/06/17 11:10 118 01/06/17 08:30 96 Room Air 01/06/17 07:14 120 16 96 Room Air 01/06/17 07:08 36.4 105 18 107/72 (84) 96 Room Air Notes Mental Status: alert / awake / arousable, participated in evaluation Pt Amnestic to Procedure: Yes Nausea / Vomiting: adequately controlled Pain: adequately controlled Airway Patency, RR, SpO2: stable & adequate BP & HR: stable & adequate Hydration State: stable & adequate Anesthetic Complications: no major complications apparent Patient is an 86 y/o female admitted with Afib with RVR and anemia s/p EGD with Dr. Crockett. The patient is being followed by cardiology on the floor. HR earlier today was in the 120s so she was given IV Digoxin. I spoke to Dr. Castorena who stated that it was ok to proceed with the case even if the patient's HR is not yet rate controlled as the digoxin will likely not take effect until tomorrow and the patient's anemia is likely contributing to her rapid heart rate. He stated that he she is also ok to return to the floor after the procedure and does not require telemetry. Preoperatively, the patient's HR was in the 90s to low 100s. Her BPs were in the high 90s systolic. She did well during the procedure. She did require a total of 0.6mg IV phenylephrine to maintain her BP after propofol was administered. In recovery, she again require another 0.2mg IV phenylephrine for BPs in the 80s/40s HR 90s. Once she was more awake her BP improved and remained stable in the high 90s to low 100s systolic. Her last BP prior to discharge was 98/58. She felt well with no complaints prior to discharge. I attempted to call Dr. Lee who is covering the patient on the floor to update her on the patient but was unable to reach her. I was able to speak to the nurse taking care of her on the floor and gave her a detailed sign out. She will attempt to get into contact with Dr. Lee again.
--- NOTE | 2017-01-06 17:05 | Progress Note ---
Subjective Date of Service: Jan 06, 2017. Subjective Pt evaluation today including: conversation w/ patient, conversation w/ library sales consultant Pt seen pre-EGD and was doing quite well. No further n/v or fevers. Could still feel palpitations at times but no chest pain or SOB today. No abd pain. Pt denies LE pain or swelling. Pt states she had some SOB yesterday, but this improved s/p PRBC. Called by anesthesia s/p EGD and pt apparently had some issues maintaining BP in the PACU. She was given neosyniphrene in multiple doses. Spoke with nursing on floor and BP has continued to improve. Problem List Medical Problems: (1) Elevated troponin Status: Acute (2) Fever Status: Acute (3) Rapid atrial fibrillation Status: Acute Review of Systems All Other Systems: Reviewed and Negative Objective Vital Signs Date Time Temp Pulse Resp B/P (MAP) Pulse Ox O2 Delivery O2 Flow Rate FiO2 01/06/17 16:42 114 01/06/17 16:00 100 20 103/64 (77) 100 2.0 01/06/17 15:40 36.7 108 20 103/66 (78) 100 Nasal Cannula 2.0 01/06/17 15:30 36.7 101 20 118/68 (85) 99 Nasal Cannula 2.0 01/06/17 15:12 101 20 92/52 (65) 94 Nasal Cannula 3 01/06/17 14:53 87 20 101/54 (70) 94 Nasal Cannula 3 01/06/17 14:45 82 20 87/48 (61) 94 Room Air 01/06/17 14:37 87 20 83/60 (68) 99 Room Air 01/06/17 14:31 86 20 90/56 (67) 99 Room Air 01/06/17 12:49 36.8 75 20 98/60 (73) 94 Room Air 01/06/17 11:44 36.6 108 20 108/68 (81) 95 Room Air 01/06/17 11:30 106 20 96 Room Air 01/06/17 11:25 104 18 96 01/06/17 11:10 118 01/06/17 08:30 96 Room Air 01/06/17 07:14 120 16 96 Room Air 01/06/17 07:08 36.4 105 18 107/72 (84) 96 Room Air 01/06/17 01:17 79 16 95 Room Air 01/06/17 00:00 Nasal Cannula 2.0 01/05/17 23:00 36.4 100 20 122/74 (90) 95 Room Air 01/05/17 20:00 Nasal Cannula 2.0 01/05/17 19:56 111 20 123/81 (95) 100 Nasal Cannula 2.0 01/05/17 19:24 74 16 96 Nasal Cannula 2.0 Physical Exam General Appearance: WD/WN, no apparent distress Eyes: normal inspection, EOMI ENT: hearing grossly normal Neck: supple Respiratory/Chest: normal breath sounds, no respiratory distress Cardiovascular: no edema, + tachycardia Abdomen: non tender, soft Extremities: non-tender, no pedal edema Neurologic/Psychiatric: alert, oriented x 3 Skin: normal color, warm/dry Laboratory Results Last 24 Hours Test 01/05/17 17:06 01/06/17 06:51 Hemoglobin 9.3 g/dL Hematocrit 28.4 % Sodium Level 140 mmol/L Potassium Level 4.1 mmol/L Chloride Level 105 mmol/L Carbon Dioxide Level 32 mmol/L Anion Gap 3.0 mmol/L Blood Urea Nitrogen 33 mg/dl Creatinine 1.10 mg/dl Est Creatinine Clear Calc Drug Dose 43.2 ml/min Estimated GFR () 52.6 Estimated GFR (Non- 45.4 BUN/Creatinine Ratio 30.3 Random Glucose 90 mg/dl Calcium Level 7.9 mg/dl Magnesium Level 2.0 mg/dl Assessment and Plan 86-year-old white female admitted with atrial fibrillation with RVR and fever, increased LFT, pancytopenia, 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 - Paroxysmal afib, now with persistent afib and episodes of RVR that has been difficult to control echo WNL anticoagulate with Xarelto 15mg daily however on hold now with drop in Hb dig on hold now due to BP issues s/p EGD HypoTN: improving s/p procedure and several doses of neosynephrine Continue to monitor - 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, PCR pending ID recommends total of 14 days of Doxycycline, started 01/03, last day 01/17 Levaquin and Vanco stopped no fevers for several days now - Acute anemia: Related to GIB Hb dropped to 7.9 from 10.8 on 01/05, no signs of melena but with heme occult stools s/p 1 units PRBC with Lasix 20mg IV afterwards and Hb is improving EGD 01/06 shows mildly severe esophagitis with ulcerations and ischemia related to a small hiatal hernia, continue Protonix BID Will need repeat EGD in 6 weeks - 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, however , definitive testing negative thrombocytopenia due to anaplasmosis, platelets now normal for several days - Acute respiratory failure with hypoxia: resolved, still breathing room air, was due to COPD exacerbation - COPD exacerbation: responded well to Solu Medrol and nebulizers Prednisone 30mg x2 days, then 20mg 01/07 and 01/08, 10mg 01/09 and 01/10 and stop - Mild volume overload: responded well to Lasix - DAVID on CKD stage III: resolved, Cr now WNL making adequate urine - Hypothyroidism: TSH low at 0.2 so her dose of Synthroid 150mcg was likely too high continue to hold Synthroid and then resume at lower dose on discharge, likely 112mcg daily with afib, would want TSH high end of normal can repeat TSH in 6 weeks outpatient Hyperlipidemia--continue simvastatin 40 mg by mouth daily. DVT prophylaxis - Xarelto, on hold due to possible bleeding PT OT evaluation and treatment ordered - recommend rehab full code Continued [facility] stay due to: multiple IV medications needed Discharge planning: home
[2017-01-07] VITALS (17 sets, daily range): BP systolic 87–149; BP diastolic 47–84; PULSE 51–78; TEMP 36.3–36.8; O2SAT 90–100
[2017-01-07] MEDS: LEVALBUTEROL 1.25MG/0.5ML NEB INH SCH ×4 (01:58→19:43)
[2017-01-07] MEDS: IPRATROPIUM BROMIDE NEB SOLN 0.02% 2.5 ML VIAL INH SCH ×4 (01:58→19:43)
[2017-01-07 06:27] LABS: HEMATOCRIT 24.4 % (37-47); MEAN CELL VOLUME 91.4 fL (80-100); MEAN CORPUSCULAR HEMOGLOBIN 28.5 pg (25-34); MEAN CORPUSCULAR HGB CONC 31.1 g/dl (32-36); MEAN PLATELET VOLUME 9.9 fL (7.4-10.4); PLATELET COUNT 255 K/uL (130-400); RED BLOOD COUNT 2.67 M/uL (4.2-5.4); WHITE BLOOD COUNT 12.67 K/uL (4.8-10.8)
[2017-01-07] MEDS: PANTOprazole SOD 40 MG TAB PO SCH ×2 (08:01→21:02)
[2017-01-07] MEDS: DOXYCYCLINE HYCLATE 100 MG CAP PO SCH ×2 (08:02→21:02)
[2017-01-07] MEDS: MULTIVITAMIN TAB PO SCH (08:02)
[2017-01-07] MEDS: CARVEDILOL 25 MG TAB PO SCH ×2 (08:02→21:01)
[2017-01-07] MEDS: OXYBUTYNIN CHLORIDE 5 MG TAB PO SCH ×2 (08:02→21:01)
[2017-01-07] MEDS: ENALAPRIL MALEATE 10 MG TAB PO SCH (08:03)
[2017-01-07] MEDS: SIMVASTATIN 40 MG TAB PO SCH (08:03)
[2017-01-07] MEDS: FERROUS SULFATE 325 MG TAB PO SCH (08:03)
[2017-01-07] MEDS: DILTIAZEM HCL 120 MG CAPCR PO SCH (08:32)
--- NOTE | 2017-01-07 09:33 | CARDIOLOGY PROGRESS NOTE ---
DATE: 01/07/2017 SUBJECTIVE: The patient was seen by me today in her medical floor bed. She states she is feeling well today. No orthopnea or PND overnight. No dyspnea today. No dyspnea walking about the room. No palpitations, lightheadedness, syncope, leg pain, abdominal pain, nausea, vomiting, fevers, chills, or cough. No pulmonary, urinary, or neurologic complaints. She had a formed stool this morning. It was bright red blood on stools, which she attributes to hemorrhoids. ALLERGIES: No known drug allergies. CURRENT MEDICATIONS: Prednisone 30 mg daily, pantoprazole 40 mg b.i.d., doxycycline 100 mg b.i.d., diltiazem CD 120 mg daily, oxybutynin 5 mg p.o. b.i.d., Atrovent and Xopenex nebulizer q. 6 hours, carvedilol 25 mg b.i.d., enalapril 20 mg daily, ferrous sulfate 325 mg daily, multivitamin 1 daily, and simvastatin 40 mg daily. PHYSICAL EXAMINATION: VITAL SIGNS: This morning with oral temperature 36.8. Pulse since last night to this morning has been reported to be 55, 78, 58, and 74. Pulse oximetry on 2 liters per minute nasal cannula oxygen 97%-100%. NECK: Jugular venous pressure approximately 7 cm. LUNGS: Normal respiratory effort. Clear. No rales or wheezes. HEART: Irregularly irregular. 1/6 systolic murmur in the left lower sternal border and apex. No diastolic murmur or rub. No S3. ABDOMEN: Soft. Nontender. No palpable masses or organomegaly. No bruits. EXTREMITIES: No pretibial edema. No calf tenderness. NEUROLOGIC: Alert and oriented x3. Motor grossly intact. PSYCHIATRIC: Affect is normal. The patient underwent an EGD yesterday. It revealed esophagitis. No active bleeding. Small hiatal hernia with evidence of mucosal friability. One nonbleeding cratered gastric ulcer with no stigmata of bleeding. Duodenum is normal. Recommendations were continue her current medications. Repeat endoscopy in 6 weeks to check for healing. LABORATORY DATA: Today with AST 13, ALT 28, and alkaline phosphatase 52. Albumin 2.2. Yesterday, her creatinine was 1.10. CBC today with WBC 12.67, hemoglobin 7.6, hematocrit 24.4, and platelet count 255. Digoxin level 1.7. ASSESSMENT: 1. Persistent atrial fibrillation at this time. Ventricular rate has improved with the addition of digoxin to her medical regimen. Yesterday, she received a total of 0.75 mg of digoxin in 3 separate doses of 0.25 mg. 2. Blood pressure mildly elevated today. No complaints of postural lightheadedness today. Two days ago, she did have postural lightheadedness. 3. Anemia. Her hemoglobin has decreased from yesterday. No symptoms of active GI bleeding other than a small amount of bright red blood in her stools, which she attributes to hemorrhoids. No black stools. Her abdominal discomfort has resolved from yesterday. Endoscopy yesterday revealed esophagitis and a nonbleeding gastric ulcer. Patient had decreased WBC and platelet count on admission. Hgb has significantly decreased since admission without any signs or symptoms of significant GI bleeding. Have to consider the anemia to be part of a pancytopenia. 4. Coronary artery disease. No anginal symptoms. 5. Thrombocytopenia has resolved. 6. Febrile illness at the time of admission. This has resolved. No current signs or symptoms of infection. She is afebrile. 7. Digoxin level is in the upper therapeutic range. 8. Good oxygen saturation on low dose supplemental nasal cannula oxygen. The patient would like to have her oxygen removed. RECOMMENDATIONS: 1. Digoxin 0.125 mg p.o. daily. Start dosing this afternoon. 2. Continue other cardiac medications as above. 3. Reinstitute anticoagulation therapy when it is okay from a GI standpoint. 4. Closely monitor hemoglobin. 5. Discontinue oxygen and check room air oxygen saturation. 6. Increase activity. 7. If her hemoglobin drops further or if she has dyspnea with ambulation, would need to consider additional PRBC transfusion. She had increased dyspnea a few days ago, which resolved after transfusion of 1 unit of packed red blood cells. 8. Consider hematology consult. [facility]
--- NOTE | 2017-01-07 10:14 | Gastroenterology Progress Note ---
Progress Note Date of Service: Jan 07, 2017 Subjective Pt evaluation today including: conversation w/ patient, physical exam, chart review, lab review, review of studies, review of inpatient medication list Patient reports feeling well today. No overt GIB. Hgb was noted to be 9.3 after blood transfusion but has since dropped again to 7.6. Endoscopic findings yesterday with clean-based gastric ulcer as well as friable ulcerated mucosa at the site of small hiatus hernia. Case discussed with Dr. Castorena. Possible consideration of NOLBERTO. Review of Systems Constitutional: No problem reported Respiratory: + dyspnea on exertion Cardiac: No problem reported Abdomen: No pain, No nausea, No vomiting, No diarrhea Psych: No problem reported Medications Current Inpatient Medications Medications (Trade) Dose Ordered Sig/Durga Route Start Time Stop Time Status Last Admin Dose Admin Acetaminophen (Tylenol Tab) 650 mg Q4H PRN PO 12/28/16 19:00 01/27/17 18:59 12/30/16 15:01 650 MG Nitroglycerin (Nitrostat Tab) 0.4 mg UD PRN SL 12/28/16 19:00 01/27/17 18:59 12/29/16 16:05 0.4 MG Aspirin (Ecotrin Tab) 81 mg DAILY PO 12/29/16 09:00 01/28/17 08:59 Future Hold 01/05/17 07:39 81 MG Enalapril Maleate (Vasotec Tab) 20 mg DAILY PO 12/29/16 09:00 01/28/17 08:59 01/07/17 08:03 20 MG Ferrous Sulfate (Feosol Tab) 325 mg DAILY PO 12/29/16 09:00 01/28/17 08:59 01/07/17 08:03 325 MG Multivitamins (Multivitamin Tab) 1 tab DAILY PO 12/29/16 09:00 01/28/17 08:59 01/07/17 08:02 1 TAB Simvastatin (Zocor Tab) 40 mg DAILY PO 12/29/16 09:00 01/28/17 08:59 01/07/17 08:03 40 MG Carvedilol (Coreg Tab) 25 mg BID PO 12/29/16 21:00 01/28/17 20:59 01/07/17 08:02 25 MG Ipratropium [place] (Atrovent 0.02% 0.5MG/2.5ML Neb) 0.5 mg Q6R INH 12/30/16 15:00 01/29/17 14:59 01/07/17 07:19 0.5 MG Levalbuterol (Xopenex 1.25MG/ 0.5ML Neb) 1.25 mg Q6R INH 12/30/16 15:00 01/29/17 14:59 01/07/17 07:19 1.25 MG Diltiazem HCl (Cardizem Cd Cap) 120 mg QAM PO 01/03/17 08:00 02/02/17 07:59 01/07/17 08:32 120 MG Rivaroxaban (Xarelto Tab) 15 mg DAILYBD PO 01/02/17 13:45 02/01/17 13:44 Future Hold 01/04/17 18:42 15 MG Oxybutynin Chloride (Ditropan Tab) 5 mg BID PO 01/02/17 20:00 02/01/17 19:59 01/07/17 08:02 5 MG Doxycycline Hyclate (Vibramycin Cap) 100 mg BID PO 01/03/17 20:00 01/13/17 19:59 01/07/17 08:02 100 MG Prednisone (PredniSONE TAB) 30 mg QAM PO 01/06/17 08:00 02/05/17 07:59 01/07/17 08:03 30 MG Pantoprazole Sodium (Protonix Tab) 40 mg BID PO 01/05/17 20:00 02/04/17 19:59 01/07/17 08:01 40 MG Digoxin (Lanoxin Tab) 0.125 mg DAILY@16 PO 01/07/17 16:00 02/06/17 15:59 Objective Vital Signs Date Time Temp Pulse Resp B/P (MAP) Pulse Ox O2 Delivery O2 Flow Rate FiO2 01/07/17 07:21 74 15 97 Nasal Cannula 2.0 01/07/17 06:59 36.8 58 18 138/84 (102) 100 Nasal Cannula 2.0 01/07/17 01:59 78 16 98 Nasal Cannula 2.0 01/07/17 00:14 Nasal Cannula 2.0 01/07/17 00:01 36.7 55 18 138/78 (98) 99 Nasal Cannula 2.0 01/06/17 21:30 Nasal Cannula 2.0 01/06/17 20:05 62 01/06/17 20:02 60 111/68 (82) 99 Nasal Cannula 2.0 01/06/17 19:16 110 16 93 Nasal Cannula 2.0 01/06/17 18:00 86 20 122/66 (84) 95 2.0 01/06/17 17:30 94 16 112/68 (83) 96 Nasal Cannula 2.0 01/06/17 16:42 114 01/06/17 16:00 100 20 103/64 (77) 100 2.0 01/06/17 16:00 Room Air 01/06/17 15:40 36.7 108 20 103/66 (78) 100 Nasal Cannula 2.0 01/06/17 15:30 36.7 101 20 118/68 (85) 99 Nasal Cannula 2.0 01/06/17 15:12 101 20 92/52 (65) 94 Nasal Cannula 3 01/06/17 14:53 87 20 101/54 (70) 94 Nasal Cannula 3 01/06/17 14:45 82 20 87/48 (61) 94 Room Air 01/06/17 14:37 87 20 83/60 (68) 99 Room Air 01/06/17 14:31 86 20 90/56 (67) 99 Room Air 01/06/17 12:49 36.8 75 20 98/60 (73) 94 Room Air 01/06/17 11:44 36.6 108 20 108/68 (81) 95 Room Air 01/06/17 11:30 106 20 96 Room Air 01/06/17 11:25 104 18 96 01/06/17 11:10 118 Physical Exam General Appearance: no apparent distress Eyes: EOMI Respiratory/Chest: lungs clear, normal breath sounds, no respiratory distress Cardiovascular: + irregularly irregular Abdomen: normal bowel sounds, non tender, soft Neurologic/Psych: alert, normal mood/affect, oriented x 3 Skin: warm/dry Laboratory Results Last 24 Hours Test 01/07/17 05:22 White Blood Count 12.67 K/uL Red Blood Count 2.67 M/uL Hemoglobin 7.6 g/dL Hematocrit 24.4 % Mean Corpuscular Volume 91.4 fL Mean Corpuscular Hemoglobin 28.5 pg Mean Corpuscular Hemoglobin Concent 31.1 g/dl RDW Standard Deviation 51.6 fL RDW Coefficient of Variation 16.0 % Platelet Count 255 K/uL Mean Platelet Volume 9.9 fL Total Bilirubin 0.9 mg/dl Direct Bilirubin 0.2 mg/dl Aspartate Amino Transf (AST/SGOT) 13 U/L Alanine Aminotransferase (ALT/SGPT) 28 U/L Alkaline Phosphatase 52 U/L Total Protein 4.7 gm/dl Albumin 2.2 gm/dl Digoxin Level 1.7 ng/ml Assessment and Plan Patient is a 86 year old female admitted with shortness of breath and chest pain in the setting of A fib with RVR with new onset of nausea, abdominal discomfort and anemia without overt GIB and findings of clean-based gastric ulcer as well as friability and ulceration at the site of small hiatus hernia. 1. Check a lactic acid level. 2. Add Carafate 1 g ACHS. 3. Continue Protonix 40 mg BID. 4. Supportive measures per primary team. 5. Okay from GI standpoint for NOLBERTO if deemed medically appropriate by cardiology. 6. Outpatient EGD in 6 weeks to ensure ulcer healing. Agree with MILANA Wagner as above Abd: Soft, NT, ND, +BS Continue current therapy Repeat EGD in 6 weeks
[2017-01-07] MEDS: SUCRALFATE 1 GM/10 ML UDC PO SCH ×3 (12:03→21:00)
--- NOTE | 2017-01-07 12:56 | Progress Note ---
Subjective Date of Service: Jan 07, 2017. Subjective Pt evaluation today including: conversation w/ patient Pt is feeling further improved again today. She has been tolerating RA at rest without SOB, but has not been ambulating without O2 yet. Tolerating PO without issue. No longer feeling palpitations. LE swelling is improved. Pt denies fever, chest pain, abd pain, n/v/c/d, LE pain. Problem List Medical Problems: (1) Elevated troponin Status: Acute (2) Fever Status: Acute (3) Rapid atrial fibrillation Status: Acute Review of Systems All Other Systems: Reviewed and Negative Objective Vital Signs Date Time Temp Pulse Resp B/P (MAP) Pulse Ox O2 Delivery O2 Flow Rate FiO2 01/07/17 12:03 93 Room Air 01/07/17 08:00 Nasal Cannula 2.0 01/07/17 07:21 74 15 97 Nasal Cannula 2.0 01/07/17 06:59 36.8 58 18 138/84 (102) 100 Nasal Cannula 2.0 01/07/17 01:59 78 16 98 Nasal Cannula 2.0 01/07/17 00:14 Nasal Cannula 2.0 01/07/17 00:01 36.7 55 18 138/78 (98) 99 Nasal Cannula 2.0 01/06/17 21:30 Nasal Cannula 2.0 01/06/17 20:05 62 01/06/17 20:02 60 111/68 (82) 99 Nasal Cannula 2.0 01/06/17 19:16 110 16 93 Nasal Cannula 2.0 01/06/17 18:00 86 20 122/66 (84) 95 2.0 01/06/17 17:30 94 16 112/68 (83) 96 Nasal Cannula 2.0 01/06/17 16:42 114 01/06/17 16:00 100 20 103/64 (77) 100 2.0 01/06/17 16:00 Room Air 01/06/17 15:40 36.7 108 20 103/66 (78) 100 Nasal Cannula 2.0 01/06/17 15:30 36.7 101 20 118/68 (85) 99 Nasal Cannula 2.0 01/06/17 15:12 101 20 92/52 (65) 94 Nasal Cannula 3 01/06/17 14:53 87 20 101/54 (70) 94 Nasal Cannula 3 01/06/17 14:45 82 20 87/48 (61) 94 Room Air 01/06/17 14:37 87 20 83/60 (68) 99 Room Air 01/06/17 14:31 86 20 90/56 (67) 99 Room Air Physical Exam Comments: General Appearance: WD/WN, no apparent distress Eyes: normal inspection, EOMI Respiratory/Chest: normal breath sounds, no respiratory distress Cardiovascular: no edema, irregular rhythm with reg rate Abdomen: non tender, soft Extremities: non-tender, no pedal edema Neurologic/Psychiatric: alert, oriented x 3 Skin: normal color, warm/dry Laboratory Results Last 24 Hours Test 01/07/17 05:22 01/07/17 10:20 White Blood Count 12.67 K/uL Red Blood Count 2.67 M/uL Hemoglobin 7.6 g/dL Hematocrit 24.4 % Mean Corpuscular Volume 91.4 fL Mean Corpuscular Hemoglobin 28.5 pg Mean Corpuscular Hemoglobin Concent 31.1 g/dl RDW Standard Deviation 51.6 fL RDW Coefficient of Variation 16.0 % Platelet Count 255 K/uL Mean Platelet Volume 9.9 fL Total Bilirubin 0.9 mg/dl Direct Bilirubin 0.2 mg/dl Aspartate Amino Transf (AST/SGOT) 13 U/L Alanine Aminotransferase (ALT/SGPT) 28 U/L Alkaline Phosphatase 52 U/L Total Protein 4.7 gm/dl Albumin 2.2 gm/dl Digoxin Level 1.7 ng/ml Lactic Acid Level 0.9 mmol/L Assessment and Plan 86-year-old white female admitted with atrial fibrillation with RVR and fever, increased LFT, pancytopenia, 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 - Paroxysmal afib, now with persistent afib and episodes of RVR that has been difficult to control echo WNL anticoagulate with Xarelto 15mg daily however on hold now with drop in Hb dig as per cardiology HypoTN: improving s/p EGD and several doses of neosynephrine Continue to monitor - 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, PCR pending ID recommends total of 14 days of Doxycycline, started 01/03, last day 01/17 Levaquin and Vanco stopped no fevers for several days now - Acute anemia: Related to GIB Hb dropped to 7.9 from 10.8 on 01/05, no signs of melena but with + heme occult stools and now with drop Hb again s/p 1 units PRBC on 01/05, will repeat again with Lasix 20mg IV afterwards EGD 01/06 shows mildly severe esophagitis with ulcerations and ischemia related to a small hiatal hernia, continue Protonix BID Will need repeat EGD in 6 weeks Pt would prefer to avoid c-scope if possible t/c NOLBERTO - 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, however , definitive testing negative thrombocytopenia due to anaplasmosis, platelets now normal for several days - Acute respiratory failure with hypoxia: resolved, still breathing room air, was due to COPD exacerbation - COPD exacerbation: responded well to Solu Medrol and nebulizers Prednisone taper 30mg x2 days, then 20mg 01/07 and 01/08, 10mg 01/09 and 01/10 and stop - Mild volume overload: responded well to Lasix - DAVID on CKD stage III: resolved, Cr now WNL making adequate urine - Hypothyroidism: TSH low at 0.2 so her dose of Synthroid 150mcg was likely too high continue to hold Synthroid and then resume at lower dose on discharge, likely 112mcg daily with afib, would want TSH high end of normal can repeat TSH in 6 weeks outpatient Hyperlipidemia--continue simvastatin 40 mg by mouth daily. DVT prophylaxis - Xarelto, on hold due to possible bleeding PT OT evaluation and treatment ordered - recommend rehab initially but pt is progressing well and may be able to d/c home with HH full code Continued [facility] stay due to: multiple IV medications needed Discharge planning: home
[2017-01-07] MEDS ORDERED: FUROSEMIDE INJ 20 MG in SYRINGE 0 ML IV SCH (14:30)
[2017-01-07] MEDS: DIGOXIN 0.125 MG TAB PO SCH (16:00)
[2017-01-08 02:22] VITALS: PULSE 58; O2SAT 90
[2017-01-08] MEDS: IPRATROPIUM BROMIDE NEB SOLN 0.02% 2.5 ML VIAL INH SCH ×3 (02:22→14:15)
[2017-01-08] MEDS: LEVALBUTEROL 1.25MG/0.5ML NEB INH SCH ×3 (02:22→14:15)
[2017-01-08 07:28] VITALS: BP 154/69; PULSE 57; TEMP 36.5; O2SAT 96
[2017-01-08 07:34] VITALS: PULSE 57; O2SAT 96
[2017-01-08 08:01] LABS: HEMATOCRIT 26.5 % (37-47); MEAN CELL VOLUME 87.5 fL (80-100); MEAN CORPUSCULAR HGB CONC 33.2 g/dl (32-36); MEAN PLATELET VOLUME 9.4 fL (7.4-10.4); PLATELET COUNT 244 K/uL (130-400); RED BLOOD COUNT 3.03 M/uL (4.2-5.4); WHITE BLOOD COUNT 13.17 K/uL (4.8-10.8)
--- NOTE | 2017-01-08 08:55 | PROGRESS NOTE ---
DATE: 01/08/2017 SUBJECTIVE: The patient was seen by me this morning in the medical floor bed. She states she is feeling better today compared to yesterday. She did receive transfusion of 1 unit of packed red blood cells yesterday. She states that she feels stronger after this transfusion. She denies any dyspnea lying in bed. She is no longer on any supplemental oxygen. No dyspnea walking about the room and the sanderson. She states that she is walking well. No complaints of palpitations, lightheadedness, or syncope. No chest pain. Her abdominal pain has almost completely resolved. No symptoms of bleeding. No symptoms suggestive of thromboembolic event. No leg pain. ALLERGIES AND ADVERSE DRUG REACTIONS: No known drug allergies. CURRENT MEDICATIONS: Digoxin 0.125 mg daily, sucralfate 1 gram p.o. q.i.d., prednisone 30 mg daily, pantoprazole 40 mg b.i.d., doxycycline 100 mg b.i.d., diltiazem CD 120 mg daily, oxybutynin 5 mg b.i.d., Atrovent and Xopenex nebulizer, carvedilol 25 mg b.i.d., enalapril 20 mg daily, ferrous sulfate 325 mg daily, multivitamin 1 daily, simvastatin 40 mg daily, p.r.n. acetaminophen and p.r.n. sublingual nitroglycerin. INR yesterday 1570/1550. PHYSICAL EXAMINATION: VITAL SIGNS: This morning with oral temperature 36.5, pulse 57, blood pressure 154/69, and pulse oximetry on room air 96%. GENERAL APPEARANCE: Shows her to be sitting up in bed. No distress. NECK: No jugular venous distention. LUNGS: Clear. Normal respiratory effort. No rales or wheezes. HEART: Rhythm today is regular. 1/6 systolic murmur at the left lower sternal border and apex. No diastolic murmur or rub. No gallop. ABDOMEN: Soft. Nontender. No palpable masses or organomegaly. EXTREMITIES: Trace pretibial edema bilaterally. No calf tenderness. NEUROLOGIC: Alert and oriented x3. Motor grossly intact. PSYCHIATRIC: Affect is normal. LABORATORY DATA: Today with WBC 13.17, hemoglobin 8.8, hematocrit 26.5, and platelet count 244. ASSESSMENT: 1. Coronary artery disease. No anginal symptoms at this time. 2. History of paroxysmal atrial fibrillation. She was in sustained atrial fibrillation during this admission. Today, her rhythm is regular on exam. There is an occasional premature beat. Suspect she has converted back to sinus rhythm. Certainly would need to exclude a junctional rhythm. 3. No evidence of pulmonary vascular congestion on exam. 4. Normal oxygen saturation on room air. 5. Anemia. EGD revealed esophagitis, inflammation around the hiatal hernia, and nonbleeding gastric ulcer. No active bleeding source. The patient has had no symptoms suggestive of a large amount of GI bleeding. Other GI bleeding may be contributory to her anemia. Cannot exclude marrow suppression. Early in the hospital course, she had pancytopenia. Since then, her white blood cell count and platelet count have improved. 6. Febrile illness at the time of admission and early in the hospital course. Since then, she has been afebrile. No current symptoms suggestive of infection. Blood cultures x4 were negative. 7. Mild systolic hypertension. Diastolic pressure well controlled. RECOMMENDATIONS AND PLAN: 1. Electrocardiogram this morning to assess the rhythm. 2. Continue current cardiac medications. 3. Anticoagulation at this time is contraindicated because of her anemia and EGD findings. Would restart anticoagulation therapy when it is okay from a GI standpoint. Even if she has reverted back to sinus rhythm, would recommend anticoagulation therapy skilled nursing in light of her paroxysmal atrial fibrillation. Addendum: Electrocardiogram performed today reveals sinus bradycardia with premature ventricular beats. MTDD
[2017-01-08 09:20] VITALS: PULSE 64
[2017-01-08] MEDS: DOXYCYCLINE HYCLATE 100 MG CAP PO SCH (09:24)
[2017-01-08] MEDS: ENALAPRIL MALEATE 10 MG TAB PO SCH (09:24)
[2017-01-08] MEDS: PANTOprazole SOD 40 MG TAB PO SCH (09:24)
[2017-01-08] MEDS: SUCRALFATE 1 GM/10 ML UDC PO SCH ×3 (09:24→16:27)
[2017-01-08] MEDS: FERROUS SULFATE 325 MG TAB PO SCH (09:24)
[2017-01-08] MEDS: MULTIVITAMIN TAB PO SCH (09:25)
[2017-01-08] MEDS: DILTIAZEM HCL 120 MG CAPCR PO SCH (09:25)
[2017-01-08] MEDS: SIMVASTATIN 40 MG TAB PO SCH (09:26)
[2017-01-08] MEDS: OXYBUTYNIN CHLORIDE 5 MG TAB PO SCH (09:26)
[2017-01-08] MEDS: CARVEDILOL 25 MG TAB PO SCH (09:26)
[2017-01-08 13:31] LABS: HEMATOCRIT 31.7 % (37-47)
[2017-01-08] MEDS ORDERED: PRVHFAIN INH (14:32)
[2017-01-08] MEDS ORDERED: PRD20 PO (14:32)
--- NOTE | 2017-01-08 14:36 | Discharge Instructions ---
Discharge Instructions Date of Service Jan 08, 2017. Admission Reason for Admission: Atrial Fibrillation With Rvr, Uti Discharge Discharge Diagnosis / Problem: Atrial fibrillation, esophageal ulcer Discharge Goals Goal(s): Decrease discomfort, Improve function, Increase independence Activity Recommendations Activity Limitations: resume your previous activity . Instructions / Follow-Up Instructions / Follow-Up Home Health will draw a Hemoglobin level (H/H) on 01/10. You will start taking the xarelto on 01/15/17. Dr. Acevedo next week Dr. Castorena next week Dr. Crockett next week Case management will set up these appointments for you Current Hospital Diet Patient's current hospital diet: Regular Diet Discharge Diet Recommended Diet: AHA Diet (Heart Healthy) Procedures Procedures Performed: EGD Pending Studies Studies pending at discharge: no Medical Emergencies . Who to Call and When: Medical Emergencies: If at any time you feel your situation is an emergency, please call 911 immediately. . Non-Emergent Contact Non-Emergency issues call your: Primary Care Provider, Carbon Coating Machine Operator, Ship'S Engineer . . "Provider Documentation" section prepared by Joyce Mendoza. . VTE Core Measure Inpt VTE Proph given/why not?: Other Anticoagulation (heparin IV low-dose no bolus per protocol)
--- NOTE | 2017-01-08 14:38 | Discharge Summary ---
Discharge Summary Date of Service Jan 08, 2017. Discharge Summary Admission Date: Dec 28, 2016 at 19:33 Discharge Date: Jan 08, 2017 Discharge Disposition: Home with services Principal Diagnosis: New onset afib with RVR, GIB Problems/Secondary Diagnoses: HTN Hx of NM Hyperlipidemia Hypothyroid Iron deficiency anemia Immunizations: Have You Had Influenza Vaccine: N/A Influenza Vaccine Date: Mar 26, 2009 History of Tetanus Vaccine?: NOT UP TO DATE. 05/26/[birth year] Tetanus Immunization Date: May 26, 1986 History of Pneumococcal: Yes Pneumococcal Date: Mar 26, 2009 History of Hepatitis B Vaccine: No Procedures: EGD 01/06 Consultations: Dr. Castorena (cardiology) Dr. Crockett (GI) Medication Reconciliation New Medications: Albuterol (Ventolin Hfa) 60 Puffs/5400 Mcg Aers 2 PUFF INH Q4 PRN for SOB/Wheezing, #1 1 Refill Doxycycline Hyclate (Doxycycline Hyclate) 100 Mg Cap 1 TAB PO BID for 10 Days, #20 TAB Levothyroxine Sodium (Synthroid) 112 Mcg Tab 1 TAB PO QAM for 30 Days, #30 TABS 3 Refills Carvedilol (Carvedilol) 25 Mg Tab 25 MG PO BID, #60 TAB 3 Refills Diltiazem HCl (Diltiazem Cd) 120 Mg Capcr 120 MG PO QAM, #30 CAP 5 Refills Oxybutynin Chloride (Oxybutynin Chloride) 5 Mg Tab 5 MG PO BID, #60 TAB 2 Refills Pantoprazole (Pantoprazole Sodium) 40 Mg Tab 40 MG PO BID for 30 Days, #30 TAB Prednisone (Prednisone) 20 Mg Tab 20 MG PO QAM, #6 TAB 0 Refills Start at 20mg daily x 2 days, 10mg daily x 2 days then stop Rivaroxaban (Xarelto) 15 Mg Tab 15 MG PO DAILYBD, #30 TAB 5 Refills Continued Medications: Calcium Carbonate (Caltrate 600) 1,500 Mg Tab 1500 MG PO DAILY Coenzyme Q10 (Ubidecarenone) (Co Q 10) 100 Mg Cap 100 MG PO DAILY Enalapril (Vasotec) 10 Mg Tab 20 MG PO DAILY Ferrous Sulfate (Ferrous Sulfate) 325 Mg Tab 325 MG PO DAILY Mrhthbngxiv-Ylscwbekbwm-Kij C- (Glucosamine Chondroitin) 1 Cap Cap 1 CAP PO DAILY Multivitamin (Multivitamin) Tab 1 TAB BT DAILY Nitroglycerin (Nitrostat) 0.4 Mg Tab 0.4 MG UT PRN, 0 Refills Simvastatin (Zocor) 40 Mg Tab 40 MG PO DAILY Discontinued Medications: Aspirin Enteric Coated (Ecotrin Or Generic) 81 Mg Tab 81 MG PO DAILY, TAB Carvedilol Phosphate (Coreg Cr) 80 Mg Cap 80 MG PO QAM, CAP Levothyroxine Sodium (Synthroid) 150 Mcg Tab 150 MCG PO DAILY, TAB Discharge Exam Pt is doing well. No longer SOB at rest or with ambulation. Tolerating PO without issue. Pt denies fever, chest pain, abd pain, n/v/c/d, LE pain or swelling. She has noticed no ludivina bleeding. 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 - Paroxysmal afib, now with persistent afib and episodes of RVR that has been difficult to control NSR on d/c echo WNL Plan was to anticoagulate with Xarelto 15mg daily however given GIB, will not start x7 days dig as per cardiology HypoTN: Noted s/p EGD and improvied s/p several doses of neosynephrine Resolved - 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, PCR pending ID recommends total of 14 days of Doxycycline, started 01/03, last day 01/17 Levaquin and Vanco initially, but d/c'd and no further fevers on doxy - Acute anemia: Related to GIB as noted on EGD below Hb dropped to 7.9 from 10.8 on 01/05, no signs of melena but with + heme occult stools Hb initially responded s/p 1 units PRBC on 01/05, however the following day was at 7.6, and another 1 unit was given Hb on 01/08 was 8.8 in AM and 10.0 in the afternoon EGD 01/06 shows mildly severe esophagitis with ulcerations and ischemia related to a small hiatal hernia, continue Protonix BID Will need repeat EGD in 6 weeks Pt would prefer to avoid c-scope if possible H/H on 01/10 with home health - 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, however , definitive testing negative thrombocytopenia due to anaplasmosis, platelets now normal for several days - Acute respiratory failure with hypoxia: resolved, still breathing room air, was due to COPD exacerbation - COPD exacerbation: responded well to Solu Medrol and nebulizers Prednisone taper as above Home albuterol inhaler PRN - Mild volume overload: responded well to Lasix - DAVID on CKD stage III: resolved, Cr now WNL making adequate urine - Hypothyroidism: TSH low at 0.2, likely Synthroid 150mcg was too high continue to hold Synthroid and then resume at lower dose on discharge, 112mcg daily with afib, would want TSH high end of normal can repeat TSH in 6 weeks outpatient Hyperlipidemia--continue simvastatin 40 mg by mouth daily. PT OT evaluation and treatment ordered - recommend rehab initially but pt is progressing well and now will d/c home with HH Per CM: pt's copay will be $78.45/month. Awaiting call back from pharmacy at d/ c for pricing on eliquis and pradaxa. Pt does not wish to use coumadin due to [place] location and transportation issues. Pt given a card for $0 copay the first month and will discuss other options with cardiology at follow- up. Total Time Spent: Greater than 30 minutes This includes examination of the patient, discharge planning, medication reconciliation, and communication with other providers. Discharge Instructions Please refer to the electronic Patient Visit Report (Discharge Instructions) for additional information. Follow-Up Dr. Acevedo next week Dr. Castorena next week Dr. Crockett next week Case management will set up these appointments for pt Additional Copies To Luana Acevedo M.D.
[2017-01-08 14:44] VITALS: BP 154/69; PULSE 64; TEMP 36.5; O2SAT 96
[2017-01-08] MEDS: DIGOXIN 0.125 MG TAB PO SCH (16:00)
[2017-01-08] MEDS ORDERED: PRT40 PO (17:09)
[2017-01-08] MEDS ORDERED: DXY100 PO (17:11)
[2017-01-11 23:38] LABS: ANAPLASMA PHAGOCYTOPHIL IGG <1:64 (<1:64); ANAPLASMA PHAGOCYTOPHIL IGM <1:20 (<1:20); EHRLICHIA CHAFF IGG AB <1:64 (<1:64); EHRLICHIA CHAFF IGM AB <1:20 (<1:20)
[2017-01-15 15:18] LABS: ANAPLASMA PHAGOCYTOPHIL DNA DETECTED
[2017-02-04] MEDS ORDERED: RIVA1.5T PO (13:50)
[2017-02-04] MEDS ORDERED: DILT120C68 PO (13:50)
[2017-02-04] MEDS ORDERED: MULTCAP7 PO (13:50)
[2017-02-04] MEDS ORDERED: LEVO112T2 PO (13:50)
[2017-02-04] MEDS ORDERED: ENAL1TAB31 PO (13:50)
[2017-02-04] MEDS ORDERED: VNTHFA/IN INH (13:50)
[2017-02-04] MEDS ORDERED: OXYB5TAB74 PO (13:50)
[2017-02-04] MEDS ORDERED: CARV25TA PO (13:50)
== END 2017-01-08 17:08 | disposition home health service (06) | DRG 308 ==
LOC: C.EDB 16:04 → CANBEDREQ 19:28 → C.2T 19:33 → ENRESERV 20:02 → C.4E 01-01 12:06
PROVIDERS: ADMIT Hospitalist; ATTEND Family Medicine
PROC: 0DJ08ZZ Inspection of Upper Intestinal Tract, Via Natural or Artificial Opening Endoscopic (ICD-10-PCS; principal; 2017-01-06 12:44)
DX: I48.0 Paroxysmal atrial fibrillation (principal); J96.01 Acute respiratory failure with hypoxia; J44.1 Chronic obstructive pulmonary disease with (acute) exacerbation; A77.49 Other ehrlichiosis; I24.8 Other forms of acute ischemic heart disease; B37.49 Other urogenital candidiasis; N17.9 Acute kidney failure, unspecified; D61.818 Other pancytopenia; I48.1 Persistent atrial fibrillation; D50.9 Iron deficiency anemia, unspecified; E03.9 Hypothyroidism, unspecified; E78.5 Hyperlipidemia, unspecified; I25.10 Atherosclerotic heart disease of native coronary artery without angina pectoris; D69.6 Thrombocytopenia, unspecified; N18.3 Chronic kidney disease, stage 3 (moderate); E86.9 Volume depletion, unspecified; E87.70 Fluid overload, unspecified; I95.81 Postprocedural hypotension; K21.0 Gastro-esophageal reflux disease with esophagitis; K44.9 Diaphragmatic hernia without obstruction or gangrene; K25.9 Gastric ulcer, unspecified as acute or chronic, without hemorrhage or perforation; I08.1 Rheumatic disorders of both mitral and tricuspid valves; R93.422 Abnormal radiologic findings on diagnostic imaging of left kidney; I25.2 Old myocardial infarction; Z87.891 Personal history of nicotine dependence; Z79.82 Long term (current) use of aspirin; Z79.899 Other long term (current) drug therapy

== ENCOUNTER → 2017-01-16 | Outpatient (CLI) | payer MEDICARE ==
[~2017-01-16] MED LIST changes: -ASPEC81 PO; +CARV25TA PO; +COEN1CAP17 PO; +CRDCD120 PO; +CRG25 PO; +DILT120C68 PO; +DTR5 PO; +DXY100 PO; +ENAL1TAB31 PO; +FERR325T5 PO; -FRRS300 PO; +GLUC1CAP35 PO; +LEVO112T2 PO; +MULTCAP7 PO; +OXYB5TAB74 PO; +PRD20 PO; +PRT40 PO; +PRVHFAIN INH; +RIVA1.5T PO; +VNTHFA/IN INH; +XRL15 PO; -[UNRECOGNIZED DRUG - CODE] PO; -[UNRECOGNIZED DRUG - CODE] PO
--- NOTE | 2017-01-16 15:58 | DIAGNOSTIC IMAGING REPORT ---
TWO VIEW CHEST CLINICAL HISTORY: Exertional dyspnea. FINDINGS: PA and lateral chest radiographs are compared to study dated 12/29/2016 and correlated with chest CT dated 12/30/2016. The heart is enlarged and there is atherosclerotic calcification of the thoracic aorta. The pulmonary vasculature is noncongested. Scattered calcified granulomas are again noted. Emphysema and chronic interstitial thickening are similar to previous. No airspace consolidation, pleural effusion, or pneumothorax is seen. The skeletal structures are osteopenic. Degenerative change is present throughout the thoracic spine. IMPRESSION: Cardiomegaly and emphysema with no acute cardiopulmonary abnormality. Electronically signed by: Hardik Mahmood M.D. 01/16/2017 3:57 PM Dictated Date/Time: 01/16/2017 3:56 PM
[2017-01-16 16:57] LABS: BASO % 0.1 %; BASO ABS # 0.01 K/uL (0-0.2); EOS % 1.4 %; HEMATOCRIT 32.7 % (37-47); IG% 0.3 %; LYMPH % 15.4 %; MEAN CELL VOLUME 95.3 fL (80-100); MEAN CORPUSCULAR HEMOGLOBIN 29.2 pg (25-34); MEAN CORPUSCULAR HGB CONC 30.6 g/dl (32-36); MEAN PLATELET VOLUME 9.9 fL (7.4-10.4); MONO % 11.4 %; NEUT % 71.4 %; PLATELET COUNT 245 K/uL (130-400); RED BLOOD COUNT 3.43 M/uL (4.2-5.4); WHITE BLOOD COUNT 7.79 K/uL (4.8-10.8)
[2017-01-16 17:20] LABS: COMPLETE YES
== END | disposition home or self-care (01) ==
LOC: C.RAD1850 13:57
PROVIDERS: ATTEND Internal Medicine Cardiovascular Disease
DX: J43.9 Emphysema, unspecified (principal); I51.7 Cardiomegaly; D64.9 Anemia, unspecified

== ENCOUNTER → 2017-03-05 | Outpatient (CLI) | payer MEDICARE ==
[~2017-03-05] MED LIST changes: -COEN1CAP17 PO; -CRDCD120 PO; -CRG25 PO; -DTR5 PO; -DXY100 PO; -ENAL10TA88 PO; -GLUC1CAP35 PO; -MULT-506 BT; -PRD20 PO; -PRT40 PO; -PRVHFAIN INH; -SYN112 PO; -XRL15 PO
[2017-03-05 11:55] LABS: HEMATOCRIT 39.7 % (37-47)
[2017-03-05 12:20] LABS: BLOOD UREA NITROGEN 24 mg/dl (7-18); BUN/CREATININE RATIO 22.1 (10-20); CALCIUM 8.9 mg/dl (8.5-10.1); CARBON DIOXIDE 28 mmol/L (21-32); CHLORIDE 108 mmol/L (98-107); GLUCOSE 91 mg/dl (70-99); SODIUM 142 mmol/L (136-145)
== END | disposition home or self-care (01) ==
LOC: C.LABPBG 07:55
PROVIDERS: ATTEND Student in an Organized Health Care Education/Training Program
DX: E03.9 Hypothyroidism, unspecified (principal); K26.9 Duodenal ulcer, unspecified as acute or chronic, without hemorrhage or perforation; R60.9 Edema, unspecified

== ENCOUNTER → 2017-03-05 | Day surgery (SDC) | payer MEDICARE ==
[2017-02-04 13:55] VITALS: Ht 166.4 cm; Wt 93.6 kg
[~2017-03-05] VITALS: Ht 166.4 cm; Wt 93.6 kg
[~2017-03-05] MED LIST changes: +FENTANYL CITRATE INJ 50 MCG/1 ML 2 ML VIAL ONE; +LIDOCAINE HCL 2% 2 ML VIAL (20MG/ML) ONE; +PROPOFOL IV EMULSION 10 MG/ML 20 ML VIAL IV ONE; +SODIUM CHLORIDE 0.9% 500ML 500 ML IV ONE
--- NOTE | 2017-03-05 11:15 | Endo History and Physical ---
History & Physical Date of Service: Mar 05, 2017. Chief Complaint: Gastric Ulcer Referring Physician: Curtis History of Present Illness 86 yo CF who presents for EGD secondary to gastric ulcer. Past Surgical History Hx Cardiac Surgery: Yes (HEART CATH X2, STENTS X0; CARDIOVERSION) Hx Internal Defibrillator: No Hx Pacemaker: No Hx Abdominal Surgery: No Hx of Implantable Prosthesis: No Hx Post-Op Nausea and Vomiting: No Hx Cancer Surgery: No Hx Thoracic Surgery: No Hx Orthopedic: Yes (RT HIP SURGERY) Hx Urinary Tract Surgery: No Family History None Social History Smoking Status: Never Smoker Hx Substance Use: No Hx Alcohol Use: No Allergies Coded Allergies: NO KNOWN DRUG ALLERGIES (Verified Allergy, Unknown, ., 03/05/17) Scallop (Unverified Allergy, Unknown, ANAPHYLAXIS, 03/05/17) Current Medications Reported Home Medications Medications Dose Route/Sig Max Daily Dose Days Date Category Eye Vitamins (Multiple Vitamins W/ Minerals) 1 Cap Cap 1 Cap PO QAM 02/04/17 Reported Ventolin Hfa (Albuterol) 200 Puffs/40334 Mcg Aers 2-4 Puffs INH Q6H PRN 02/04/17 Reported Tiazac (Diltiazem HCl) 120 Mg Capcr 120 Mg PO QAM 02/04/17 Reported Xarelto (Rivaroxaban) 15 Mg Tab 15 Mg PO QPM 02/04/17 Reported Ditropan (Oxybutynin Chloride) 5 Mg Tab 5 Mg PO BID 02/04/17 Reported Synthroid (Levothyroxine Sodium) 112 Mcg Tab 112 Mcg PO QAM 02/04/17 Reported Coreg (Carvedilol) 25 Mg Tab 25 Mg PO BID 02/04/17 Reported Vasotec (Enalapril Maleate) 20 Mg Tab 0.5 Tab PO QAM 02/04/17 Reported Ferrous Sulfate 325 Mg Tab 325 Mg PO QAM 12/28/16 Reported Caltrate 600 (Calcium Carbonate) 1,500 Mg Tab 1,500 Mg PO QPM 12/28/16 Reported Nitrostat (Nitroglycerin) 0.4 Mg Tab 0.4 Mg UT UD PRN 02/27/11 Reported Zocor (Simvastatin) 40 Mg Tab 40 Mg PO QPM 10/04/09 Reported Vital Signs Weight (Kilograms): 93.64 Height (Feet): 5 Height (Inches): 5.5 Date Time Temp Pulse Resp B/P (MAP) Pulse Ox O2 Delivery O2 Flow Rate FiO2 03/05/17 10:54 36.5 55 18 166/64 (98) 96 Room Air Physical Exam General Appearance: WD/WN, no apparent distress Respiratory/Chest: Auscultation: breath sounds normal Cardiovascular: Heart Auscultation: RRR Abdomen: Bowel Sounds: normal Inspection & Palpation: soft, non-distended, no tenderness, guarding & rebound Assessment and Plan Assessment: 63 yo CM who presents for colonoscopy secondary to history of colon polyps. Plan: Proceed with colonoscopy.
--- NOTE | 2017-03-05 12:34 | GI REPORT ---
Procedure Date: 03/05/2017 12:06 PM Procedure: Upper GI endoscopy Indications: Follow-up of acute gastric ulcer Medicines: Monitored Anesthesia Care Complications: No immediate complications. Estimated Blood Loss: Estimated blood loss: none. Procedure: Pre-Anesthesia Assessment: - Prior to the procedure, a History and Physical was performed, and patient medications and allergies were reviewed. The patient's tolerance of previous anesthesia was also reviewed. The risks and benefits of the procedure and the sedation options and risks were discussed with the patient. All questions were answered, and informed consent was obtained. Prior Anticoagulants: The patient has taken Xarelto (rivaroxaban), last dose was 2 days prior to procedure. ASA Grade Assessment: III - A patient with severe systemic disease. After reviewing the risks and benefits, the patient was deemed in satisfactory condition to undergo the procedure. After obtaining informed consent, the endoscope was passed under direct vision. Throughout the procedure, the patient's blood pressure, pulse, and oxygen saturations were monitored continuously. The scope was introduced through the mouth, and advanced to the duodenal bulb. The upper GI endoscopy was accomplished without difficulty. The patient tolerated the procedure well. Findings: The examined esophagus was normal. A small hiatus hernia was present. The examined duodenum was normal. Impression: - Normal esophagus. - Small hiatus hernia. - Normal examined duodenum. - No specimens collected. Recommendation: - Resume previous diet. - Continue present medications. - Return to primary care physician as previously scheduled. Morris Crockett DO 03/05/2017 12:33:56 PM This report has been signed electronically. Note Initiated On: 03/05/2017 12:06 PM I attest to the content of the Intraoperative Record and orders documented therein, exceptions below
--- NOTE | 2017-03-05 12:34 | Discharge Instructions ---
Endoscopy Patient Instructions Date / Procedure(s) Performed Mar 05, 2017. EGD Allergy Information Coded Allergies: NO KNOWN DRUG ALLERGIES (Verified Allergy, Unknown, ., 03/05/17) Scallop (Unverified Allergy, Unknown, ANAPHYLAXIS, 03/05/17) Discharge Date / Findings Mar 05, 2017. Hiatal hernia Medication Instructions Stopped Medication(s): Xarelto stopped 03/03/17 OK to resume all medications today as prescribed Reported Home Medications Medications Dose Route/Sig Max Daily Dose Days Date Category Eye Vitamins (Multiple Vitamins W/ Minerals) 1 Cap Cap 1 Cap PO QAM 02/04/17 Reported Ventolin Hfa (Albuterol) 200 Puffs/87507 Mcg Aers 2-4 Puffs INH Q6H PRN 02/04/17 Reported Tiazac (Diltiazem HCl) 120 Mg Capcr 120 Mg PO QAM 02/04/17 Reported Xarelto (Rivaroxaban) 15 Mg Tab 15 Mg PO QPM 02/04/17 Reported Ditropan (Oxybutynin Chloride) 5 Mg Tab 5 Mg PO BID 02/04/17 Reported Synthroid (Levothyroxine Sodium) 112 Mcg Tab 112 Mcg PO QAM 02/04/17 Reported Coreg (Carvedilol) 25 Mg Tab 25 Mg PO BID 02/04/17 Reported Vasotec (Enalapril Maleate) 20 Mg Tab 0.5 Tab PO QAM 02/04/17 Reported Ferrous Sulfate 325 Mg Tab 325 Mg PO QAM 12/28/16 Reported Caltrate 600 (Calcium Carbonate) 1,500 Mg Tab 1,500 Mg PO QPM 12/28/16 Reported Nitrostat (Nitroglycerin) 0.4 Mg Tab 0.4 Mg UT UD PRN 02/27/11 Reported Zocor (Simvastatin) 40 Mg Tab 40 Mg PO QPM 10/04/09 Reported Provider Instructions Activity Restrictions - No exercising or heavy lifting for 24 hours. - Do not drink alcohol the day of the procedure. - Do not drive a car or operate machinery until the day after the procedure. - Do not make any important decisions or sign important papers in 24 hours after the procedure. Following Day: - Return to full activity which may include returning to work/school. Diet Start your diet with liquids and light foods (jello, soup, juice, toast). Then eat your usual diet if not nauseated. Treatment For Common After Affects For mild abdominal pain, bloating, or excessive gas: - Rest - Eat lightly - Lie on right side Follow-Up Information Follow-up with Curtis as scheduled Anesthesia Information What You Should Know You have had a procedure that required some medicine to reduce anxiety and discomfort. This treatment is called moderate sedation. After receiving the treatment, you may be sleepy, but you will be able to breathe on your own. The effects of the treatment may last for several hours. Follow these instructions along with Activity/Diet recommendations noted above: * Do NOT do anything where dizziness or clumsiness would be dangerous. * Rest quietly at home today, then you can be up and about tomorrow. * Have a responsible person stay with you the rest of today. * You may have had an I.V. today. If so, you may take the dressing off later today. Recommendations Call your doctor if: * Trouble breathing * Continuous vomiting for more than 24 hours * Temperature above 101 degrees * Severe abdominal pain or bloating * Pain not relieved by pain medicine ordered * There is increased drainage or redness from any incision * A large amount of rectal bleeding greater than 2-3 tablespoons. (If you had a polyp/s removed or have hemorrhoids, a small amount of blood - from the rectum is to be expected.) * You have any unanswered questions or concerns. IN THE EVENT OF A SERIOUS EMERGENCY, GO TO THE NEAREST EMERGENCY ROOM Your discharge instructions were prepared by provider Morris Crockett. Patient Instructions Signature Page Alissa Say Patient (or Guardian) Signature/Date: I have read and understand the instructions given to me by my caregivers. Caregiver/RN/Doctor Signature/Date: The above-named patient and/or guardian has received patient instructions on this date. + Original Patient Signature Page (only) stays with chart. Please make copy for patient.
[2017-03-05 13:05] VITALS: BP 130/66; PULSE 50; O2SAT 96
--- NOTE | 2017-03-05 13:17 | Anesthesiology Progress Note ---
Anesthesia Post Op Note Date & Time Mar 05, 2017 at 13:17 Vital Signs Pain Intensity: 0 Vital Signs Past 12 Hours Date Time Temp Pulse Resp B/P (MAP) Pulse Ox O2 Delivery O2 Flow Rate FiO2 03/05/17 13:05 50 18 130/66 (87) 96 Room Air 03/05/17 12:46 52 18 123/68 (86) 95 Room Air 03/05/17 12:31 47 18 102/51 (68) 96 Room Air 03/05/17 10:54 36.5 55 18 166/64 (98) 96 Room Air Notes Mental Status: alert / awake / arousable, participated in evaluation Pt Amnestic to Procedure: Yes Nausea / Vomiting: adequately controlled Pain: adequately controlled Airway Patency, RR, SpO2: stable & adequate BP & HR: stable & adequate Hydration State: stable & adequate Anesthetic Complications: no major complications apparent
== END | disposition home or self-care (01) ==
LOC: C.GI 10:15
PROVIDERS: ATTEND Internal Medicine
DX: Z09 Encounter for follow-up examination after completed treatment for conditions other than malignant neoplasm (principal); K44.9 Diaphragmatic hernia without obstruction or gangrene; I10 Essential (primary) hypertension; Z86.010 Personal history of colon polyps; Z87.11 Personal history of peptic ulcer disease; Z79.01 Long term (current) use of anticoagulants